=== PATIENT | male | born 1945 | race Caucasian/White ===

== ENCOUNTER 2023-09-11 12:34 | Outpatient (RCR) | payer MEDICARE, SELFPAY | END 2024-02-03 10:38 | disposition home or self-care (01) | LOC: HO.WCC 12:34 | PROVIDERS: PCP Internal Medicine; Visit Provider Surgery | DX: I87.331 Chronic venous hypertension (idiopathic) with ulcer and inflammation of right lower extremity (principal); L97.812 Non-pressure chronic ulcer of other part of right lower leg with fat layer exposed; L97.829 Non-pressure chronic ulcer of other part of left lower leg with unspecified severity; L30.9 Dermatitis, unspecified; I73.9 Peripheral vascular disease, unspecified; I10 Essential (primary) hypertension; Z95.2 Presence of prosthetic heart valve; Z87.891 Personal history of nicotine dependence | CPT/HCPCS: 11042; 11045; 99212; 99213 ==

== ENCOUNTER 2024-04-21 11:11 | Outpatient (AMB) | payer MEDICARE, SELFPAY ==
--- NOTE | 2024-04-21 11:16 | AM.OFFWIN_ITS ---
Intake Vital Signs 04/21/24 11:17 Height 5 ft 10 in Weight 250 lb BMI 35.9 BP 112/76 Blood Pressure Location Rt brachial Position Sitting Pulse 60 Pulse Source Pulse Oximeter Temp 97.4 F Temp Source Oral Pulse Oximetry (%) 94 Oxygen Delivery Method Room Air Intake Visit Reasons: EP sore throat, congestion Intake Note: pt s here for sore throat and congestion Patient Tobacco Use Status: Current someday Tobacco user Allergies No Known Allergies Allergy (Verified 04/21/24 11:17) Do you need a note to return to daycare/school/sports/work: No HPI HPI Comments History of Present Illness Details Patient is a 79-year-old male complaining of it least 8 days of a productive cough with yellow and clear sputum as well as some chest congestion. He denies any sinus pain, ear pain, fevers, shortness of breath, wheezing or chest pain. He is eating and drinking normally. He has not tried taking any [id number] cough and cold medications to make himself feel better. He tells me he is just taking his Tylenol PM the most nights before bed. He did not test for COVID. He denies any sick contacts. Denies a history of asthma or COPD. He tells me last year this happened and he took a Z-Norman and he felt better within a few days. he tells me he is around his grandkids a lot. [facility] Social History Patient Tobacco Use Status: Current someday Tobacco user Review of Systems Const All systems reviewed & are unremarkable except as noted in HPI and below Physical Exam Vital Signs: Last Vital Signs Temp 97.4 F 04/21/24 11:17 Pulse 50 04/21/24 11:17 BP 112/76 04/21/24 11:17 Pulse Ox 94 04/21/24 11:17 Oxygen Delivery Method Room Air 04/21/24 11:17 BMI result Body Mass Index 35.9 Const General: cooperative, healthy appearing, comfortable and no acute distress Orientation/consciousness: patient oriented x3 Limitations: no limitations HEENT Head: Yes normal to inspection Ears: hearing grossly normal bilaterally, external ears normal and TM's normal bilaterally General nose exam: Normal external nose present, Normal nares present and No nasal discharge present Face and sinus: Yes normal facial exam and Yes sinuses nontender Mouth: Normal oral and palatal mucosa present and moist mucous membranes Throat: Yes tonsils normal, Yes uvula midline and Yes posterior oropharynx abnormal (Erythema) Eyes General: appearance normal, both eyes and all related structures Neck Neck: Yes normal visual inspection Resp Effort & Inspection: normal respiratory effort, able to speak in complete sentences, Actively coughing, no respiratory distress, not tachypneic, no tripod positioning and no use of accessory muscles Auscultation: clear to auscultation bilaterally Cardio Rate: regular rate Rhythm: regular rhythm Heart sounds: normal S1 and S2 Skin General skin exam: no rashes or lesions noted Neuro General: patient oriented x3 Extrem General: Yes normal to inspection and Yes no clubbing, cyanosis or edema Assessment & Plan Assessment & Plan (1) Atypical pneumonia: Code(s): J18.9 - Pneumonia, unspecified organism Plan: Sent zpak to pharmacy as 8+ days of cough and pt is around younger people frequently. Plan see above Orders: Orders SARS-CoV2/FLU/RSV Today J06.9 - Acute upper respiratory infection, unspecified Medications: New azithromycin For 250 mg dose pack: take 500 mg today (day 1), then 250 mg for 4 days (days 2-5) PO 6 tabs 0RF Coding Level of Care Code New Pt Level 3 (01829) Diagnoses Atypical pneumonia J18.9
[2024-04-21 11:17] VITALS: BP 112/76; PULSE 60; TEMP 36.3; O2SAT 94; BMI 35.9
== END 2024-04-21 11:43 | disposition home or self-care (01) ==
PROVIDERS: PCP Internal Medicine; Visit Provider Physician Assistant
DX: J18.9 Pneumonia, unspecified organism (principal)

== ENCOUNTER 2024-04-21 11:11 | Outpatient (REF) | payer MEDICARE, SELFPAY ==
[2024-04-21 16:38] LABS: Influenza A PCR NEGATIVE (Negative); Influenza B PCR NEGATIVE (Negative); Resp Syncy Virus RNA Qual PCR NEGATIVE (Negative); SARS COV2 PCR INHOUSE NEGATIVE (Negative)
== END 2024-04-21 11:12 | disposition home or self-care (01) ==
LOC: HO.LAB 11:11
PROVIDERS: Physician Assistant; PCP Internal Medicine
DX: J06.9 Acute upper respiratory infection, unspecified (principal); J18.9 Pneumonia, unspecified organism
CPT/HCPCS: 0241U; 99202

== ENCOUNTER 2024-05-27 11:56 | Outpatient (REF) | payer MEDICARE, SELFPAY ==
[2024-05-27 13:53] LABS: Blood Urea Nitrogen 27 mg/dL (9-16); Estimated Glomerular Filt Rate > 60
== END 2024-05-27 11:57 | disposition home or self-care (01) ==
LOC: HO.HMGCLDS 11:56
PROVIDERS: PCP Internal Medicine; Visit Provider Otolaryngology
DX: J38.00 Paralysis of vocal cords and larynx, unspecified (principal)
CPT/HCPCS: 36415; 82565; 84520

== ENCOUNTER → 2024-06-23 14:21 | Outpatient (BNV) | payer MEDICARE, SELFPAY | PROVIDERS: PCP Internal Medicine; Visit Provider Radiology Diagnostic Radiology | DX: R49.0 Dysphonia (principal) | CPT/HCPCS: 71046 ==

== ENCOUNTER 2024-08-22 11:22 | Outpatient (AMB) | payer MEDICARE, SELFPAY ==
--- NOTE | 2024-08-22 11:33 | MHC.OFFWIV ---
Intake Vital Signs 08/22/24 11:35 Height 25 ft Weight 250 lb BMI 2.0 Pulse 72 Pulse Source Pulse Oximeter Pulse Oximetry (%) 97 Oxygen Delivery Method Room Air Intake Visit Reasons: EP-lt neck, shoulder & upper back pain Intake Note: Patient here for left side of neck and upper back pain that has been present for about 1 week. Patient Tobacco Use Status: Current someday Tobacco user Allergies No Known Allergies Allergy (Verified 08/22/24 11:36) Do you need a note to return to daycare/school/sports/work: No HPI HPI Comments History of Present Illness Details 79 y/o male patient who presents to the walk in clinic with c/o Left Neck Pain, left shoulder and Upper Back pain for 1 week. Reports Tenderness an dpain that starts on left neck, radiating to the front left chest wall and posterior upper back. Limited ROM due to Pain. Denies any recent trauma or Injury to the shoulder or Neck. [facility] Medical History (Updated 08/22/24 @ 12:09 by Vonda Rios NP) Muscle strain of left shoulder Social History Patient Tobacco Use Status: Current someday Tobacco user Physical Exam Vital Signs: Last Vital Signs Pulse 72 08/22/24 11:35 Pulse Ox 97 08/22/24 11:35 Oxygen Delivery Method Room Air 08/22/24 11:35 BMI result Body Mass Index 2.0 Const General: cooperative and no acute distress; No comfortable Nutritional Appearance: obese Orientation/consciousness: patient oriented x3 Limitations: ambulation with cane Back/Spine/Pelvis Cervical Spine: cervical muscular tenderness, pain with cervical ROM and Cervical spine tenderness Neuro General: patient oriented x3 Extrem Right upper extremity: normal to inspection and full ROM Left upper extremity: shoulder/upper arm Details: inspection abnormal, tenderness Location: of the clavicle and of the scapula and abnormal ROM Details: pain with active ROM and pain with passive ROM; no swelling and no crepitus Psych Speech and movement: Normal speech and movement present Assessment & Plan Assessment & Plan (1) Muscle strain of left shoulder: Code(s): S46.912A - Strain of unspecified muscle, fascia and tendon at shoulder and upper arm level, left arm, initial encounter Qualifiers: Encounter type: initial encounter Qualified Code(s): S46.912A - Strain of unspecified muscle, fascia and tendon at shoulder and upper arm level, left arm, initial encounter Plan: Ordered Muscle relaxants Ordered Shoulder Xray Ordered Lidocaine patches and Acetaminophen for pain relief. Orders: Orders XR shoulder LT min 2V Today S46.912A - Strain of unspecified muscle, fascia and tendon at shoulder and upper arm level, left arm, initial encounter Medications: New metaxalone 800 mg PO TID 20 tabs 0RF S46.912A - Strain of unspecified muscle, fascia and tendon at shoulder and upper arm level, left arm, initial encounter acetaminophen 1,000 mg (2 x 500 mg) PO Q6H PRN 20 caps 0RF pain S46.912A - Strain of unspecified muscle, fascia and tendon at shoulder and upper arm level, left arm, initial encounter lidocaine 5% leave on most painful area for up to 12 hrs 1 patch topical DAILY 30 ea 0RF S46.912A - Strain of unspecified muscle, fascia and tendon at shoulder and upper arm level, left arm, initial encounter Coding Level of Care Code Est Pt Level 4 (21668) Diagnoses Muscle strain of left shoulder, initial encounter S46.912A Encounter type: initial encounter Time Spent (min) 20
[2024-08-22 11:35] VITALS: PULSE 72; O2SAT 97
--- OUTSIDE RECORDS SUMMARY | 2024-08-22 13:31 | XMS_ITS | Clinical Summary ---
Author Organization [facility] [address] [facility] Address [address] [place] [address] Phone Care Team Providers Care Senior Java Programmer Name Role Phone Willy Benton MD Primary Care Provider [phone] Allergies Active Allergy Reactions Criticality Noted Date Comments Adhesive 10/02/2015 Band aids cause contact dermatitis Latex Other Low 01/08/2018 Latex band aid cause rash Medications furosemide (LASIX) 20 mg tablet Take 2 tablets (40 mg total) by mouth 1 (one) time each day. 08/07/19 24 Active silver sulfADIAZINE (SILVADENE, SSD) 1 % cream Apply to affected area sparingly daily-bid. 01/14/20 23 Active diphenhydrAMINE- acetaminophen (TYLENOL PM) 25-500 mg per tablet Take 1 Tab by mouth at bedtime. Active digoxin (LANOXIN) 125 mcg (0.125 mg) tablet TAKE ONE TABLET BY MOUTH EVERY OTHER DAY 45 tablet 1 05/26/20 24 Active hydrOXYzine HCL (ATARAX) 25 mg tablet Take 1 tablet (25 mg total) by mouth at bedtime as needed for itching. TAKE ONE-HALF TO ONE TABLET BY MOUTH AT BEDTIME NEEDED FOR INSOMNIA 90 tablet 05/30/20 24 Active pravastatin (PRAVACHOL) 20 mg tablet TAKE ONE TABLET BY MOUTH AT BEDTIME 90 tablet 07/27/19 25 Active metoprolol tartrate (LOPRESSOR) 25 mg tablet TAKE ONE TABLET BY MOUTH TWO TIMES A DAY 180 tablet 1 08/23/19 25 Active warfarin (Jantoven) 5 mg tablet Take 0.5-1 tablets (2.5-5 mg total) by mouth 1 (one) time each day. 90 tablet 1 08/23/19 25 Active allopurinoL (ZYLOPRIM) 100 mg tablet TAKE ONE TABLET BY MOUTH TWICE A DAY 180 tablet 1 08/23/19 25 Active metoprolol tartrate (LOPRESSOR) 25 mg tablet Take 1 tablet (25 mg total) by mouth 2 (two) times a day. 03/17/20 23 025 Discontinued allopurinoL (ZYLOPRIM) 100 mg tablet Take 1 tablet (100 mg total) by mouth 2 (two) times a day. 08/25/19 24 025 Discontinued pravastatin (PRAVACHOL) 20 mg tablet 10 mg every night at bedtime. 08/09/19 21 025 Discontinued Jantoven 5 mg tablet TAKE 1/2 TO 1 TABLET BY MOUTH DAILY DIRECTED BY COUMADIN CLINIC 90 tablet 05/02/20 24 025 Discontinued Active Problems Problem Noted Date Diagnosed Date residential (current) use of anticoagulants 2023 H/O mechanical aortic valve replacement 04/27/20 24 Fasciitis 09/02/2020 Overview (03/08/2024): And chronic cellulitis around his left knee arthroplasty. Chronic periosteal reaction/osteomyelitis as well as in the distal distal femur Prediabetes 07/14/2020 Hypertension 01/14/2018 Venous insufficiency of both lower extremities 0 01/14/2018 Venous stasis dermatitis of both lower extremiti es 03/10/2017 Severe obesity (BMI 35.0-39.9) with comorbidity 07/16/2016 BPH (benign prostatic hyperplasia) 12/16/2011 Atrial flutter 02/10/2008 Overview (03/08/2024): transient History of heart valve replacement 02/10/2008 Overview (03/08/2024): [facility], 31 mm, 2003. Pure hypercholesterolemia 11/16/2007 Diverticulitis of colon without hemorrhage 11/27 Tubular adenoma 11/27/2005 Overview (03/08/2024): CN 2002: diminutive tubular adenomas. CN 2006: 8 mm rectal polyp: tubular adenoma. CN 03/24/2011: 10 mm polyp right colon: Tubular adenoma. CN 01/11/2016: no polyps. Next CN in 5 years. Systolic congestive heart failure 05/26/2005 Overview (03/08/2024): LVEF 45%, 12/[address] Green, had an abnormal pharmacologic stress test with nuclear imaging January 2020 Last Assessment & Plan: Checking Your Weight Please check your weight every day. Please make sure to check your weight at the same time every day. Your Weight Goal Your weight should not change more than 2-3 pounds in a day or 5 pounds in a week Use the Results ?? Write your weight down on a log sheet or record book. Bring them to your appointments Your Results and your Goals Your Result / Date of Completion Your Goal / How Often to Assess BP Readings from Last 1 Encounters: 03/22/15 122/63 Less than 130/80--- once per year Component Value Date LDL 69 12/28/2013 LDL less than 100--- once per year Wt Readings from Last 1 Encounters: 03/22/15 262 lb (118.842 kg) Dry Weight: 262lb---- daily Heart Ultrasound (Echocardiogram) Every 2 years (discuss with your physician) Health Maintenance Due Topic Date Due ? Dtap/tdap/td (##1 - Tdap) 1958 ? Hepatitis C Screening 1965 ? Pneumovax For High Risk Patients (##1) 2012 ? Abdominal Aortic Aneurysm (Aaa) Screening 2012 ? Influenza (##1 of 1) 02/06/2015 ? Chf Care Plan 02/17/2015 Your Action Plan Symptoms Action No shortness of breath, weight gain, chest pain, worsening leg swelling or change in your usual symptoms Continue to weigh yourself daily, take your medicines, eat a low salt diet and go to your doctor appointments Any of These Findings or Symptoms Action Weight gain of 2-3 pounds in a day Weight gain of 5 pounds in a week Increased leg swelling or cough Increased number of pillows to sleep Shortness of breath with activity Call your doctor for instructions Any of These Findings or Symptoms Action Weight gain of more than 5 lbs in 1 week Dizziness or falling Waking at night due to shortness of breath Shortness of breath at rest Chest tightness or wheezing Call your doctor today to report your symptoms and request an appointment Your congestive heart failure is well controlled and no changes are required to your current plan. Check your weight daily. Write down results. Continue to work on weight loss with a goal of losing 2-4 pounds per month Contact me if you experience any barriers to care such as inability to purchase your medication, difficulty getting to your appointments or difficulty understanding your care plan Please get your yearly flu shot Educational Resources [employer] (www.heart.org) This care plan was created in collaboration with Andres Luna on 03/22/2015 Encounters Date Type Department Care Team Description 08/01/2024 11:10 AM EST Anticoagulation - Warfarin Visit Coumadin [address] [phone] Atrial flutter, unspecified type (CMS/HCC) (Primary Dx); terminal carman (current) use of anticoagulants; H/O mechanical aortic valve replacement 07/25/2024 [facility] [address] [address] Leticia Hay LPN pt needs to reschedule appt with Dr Benton 06/23/2024 1:40 PM EST Anticoagulation - Warfarin Visit [address] [phone] Atrial flutter, unspecified type (CMS/HCC) (Primary Dx); terminal carman (current) use of anticoagulants; H/O mechanical aortic valve replacement 05/25/2024 11:10 AM EST Anticoagulation - Warfarin Visit [address] [phone] Atrial flutter, unspecified type (CMS/HCC) (Primary Dx); terminal carman (current) use of anticoagulants; H/O mechanical aortic valve replacement from Last 3 Months Immunizations Name Administration Dates Next Due H1N1 Inj Preservative Free 05/13/2009 Influenza trivalent, 0.5mL ( Fluzone High-dose) 65yo and older 04/11/2020,04/15/2019,03/10/2017 Influenza trivalent, with pr eservative (Fluzone; Afluria) 6mo and older 03/22/2015,03/12/2014,02/25/2013,03/30,03/18/2011,04/10/2010,03/13/2009 ,03/29/2008,03/15/2007,03/18/2005 Pneumococcal conjugate 13 va lent (Prevnar 13, PCV13) 2mo and older 01/29/2016 Pneumococcal polysaccharide 23 valent (Pneumovax 23) 2yo and older 04/27/2003 Td Tetanus diptheria (Tdvax) 7yo and older 04/27/2003,04/20/2001 Tdap Tetanus diptheria acell ular pertussis (Boostrix; Adacel) 7yo and older 01/29/2016 Zoster Live 12/16/2011 Surgical History Surgery Date Site/Laterality Comments OTHER SURGICAL HISTORY PROCEDURE: HISTORICAL MITRAL VALVE REPL; COMMENT: [facility] 2002. ROTATOR CUFF REPAIR -2008 PROCEDURE: HISTORICAL ROTATOR CUFF REPAIR; COMMENT: left - Dr. Jo COLONOSCOPY 2001 PROCEDURE: HISTORICAL COLONOSCOPY; COMMENT: diminutive tubular adenoma COLONOSCOPY 2005 PROCEDURE: HISTORICAL COLONOSCOPY; COMMENT: 8 mm rectal polyp: tubular adenoma COLONOSCOPY 03/24/2011 PROCEDURE: HISTORICAL COLONOSCOPY; COMMENT: 10 mm polyp right colon: Tubular adenoma. 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 Colonoscopy 6.22.06. 8 mm rectal polyp: tubular adenoma. CN 03/24/2011: 10 mm polyp right colon: Tubular adenoma. CN 01/11/2016: no polyps. Next CN in 5 years. Systolic congestive heart fa ilure (CMS/[facility]) 05/26/2005 DX:Systolic congestive heart failure ([facility]); COMMENT: LVEF 45%, 2004. Hypertension 01/14/2018 DX:Hypertension History of gout 05/26/2005 DX:History of go ut; COMMENT: 2 attacks in foot; no aspirate done Diverticulitis of colon with out hemorrhage 11/27/2005 DX:Diverticulitis of colon w ithout hemorrhage History of heart valve replacement 02/10/2008 DX:History of heart valve replacement; COMMENT: [facility], 31 mm, 2003. Obesity 07/16/2016 DX:Obesity Venous stasis dermatitis of both lower extremities 03/10/2017 DX:Venous stasis dermatitis of both lower extremities Venous stasis ulcer of left lower extremity ([facility]) 03/10/2017 DX:Venous stasis ulcer of le ft lower extremity ([facility]) Tobacco abuse 01/11/2019 DX:Tobacco abuse Dysphagia DX:Dysphagia Throat pain in adult DX:Throat p ain in adult H/O aortic valve replacement DX: H/O aortic valve replacement CHF (congestive heart failur e) ([facility]) DX:CHF (congestive heart luis manuel lure) ([facility]) Post-nasal drip DX:Post-nasal dr ip Family History Medical History Relation Name Comments Other: Mitral valve Replacement Brother 1 Arthritis Mother Relation Name Status Comments Brother 1 Brother 2 Mother Social History Tobacco Use Types Packs/Day Years Used Date Smoking Tobacco: Former Cigarettes Smokeless Tobacco: Never Alcohol Use Standard Drinks/Week Comments Yes 35 (1 standard drink = 0.6 oz pu re alcohol) Sex and Gender Information Value Date Recorded Sex Assigned at Not on file Legal Sex Male 2:20 PM EST Gender Identity Not on file Sexual Orientation Not on file Obstetrics History Last Filed Vital Signs Vital Sign Reading Time Taken Comments Blood Pressure 138/64 01/20/2024 2:51 PM EDT Pulse 64 01/20/2024 2:51 PM EDT Temperature - - Respiratory Rate - - Oxygen Saturation - - Inhaled Oxygen Concentration - - Weight 115 kg (253 lb) 05/11/2024 1:14 PM EST Height 177.8 cm (5' 10 ) 05/11/2024 1:14 PM EST Body Mass Index 36.3 05/11/2024 1:14 PM EST Plan of Treatment Upcoming Encounters Date Type Department Care Team (Late st Contact Info) Description 08/29/2024 11:00 AM EDT Anticoagulation - Warfarin Visit Coumadin Clinic - [address] [phone] 09/01/2024 1:00 PM EDT Office Visit [facility] [address] [facility] [address] [place] [address] Onel Green MD [address] [facility] [address] [place] [address] 09/06/2024 1:30 PM EDT Office Visit [facility] - [address] [phone] Delia Junior PA [address] [place] [address] Health Maintenance Due Date Last Done Comments Zoster Vaccines (2 of 3) 02/10/2012 12/16/2011 Pneumococcal Vaccine: 50+ Years (3 of 3 - PCV20 or PCV21) 01/28/2021 01/29/2016, 04/27/2003 RSV Immunization Patients 60+ Years Old (1 - 1-dose 75+ series) 2022 Medicare Annual Wellness Visit 05/07/2022 Social Influencers of Health Screening 05/07/2022 COVID-19 Vaccine (3 - season) 2024 01/24/2021, 01/03/2021 Influenza Vaccine (#1) 2024 , 04/15/2019, 04/08/2018, Additional history exists Depression Screening 07/13/2024 07/13/2023 Falls Risk Assessment 07/13/2024 07/13/2023 Hypertension/CHF/CAD Annual BMP Blood Test 09/02/2024 09/03/2023, 02/25/2021, 11/30/2020, Additional history exists Colorectal Cancer Screening: Colonoscopy 01/10/2026 01/11/2016 DTaP,Tdap,and Td Vaccines (4 - Td or Tdap) 01/28/2026 01/29/2016, 04/27/2003, 04/20/2001 Cholesterol Screening (Lipid Panel) 12/17/2027 12/16/2022 Hepatitis C Screening Completed 12/26/2015 HIB Vaccines Aged Out No longer eligi ble based on patient's age to complete this topic HPV Vaccines Aged Out No longer eligi ble based on patient's age to complete this topic Hepatitis A Vaccines Aged Out No long er eligible based on patient's age to complete this topic Hepatitis B Vaccines Aged Out No long er eligible based on patient's age to complete this topic IPV Vaccines Aged Out No longer eligi ble based on patient's age to complete this topic MMR Vaccines Aged Out No longer eligi ble based on patient's age to complete this topic Meningococcal ACWY Vaccine Aged Out N o longer eligible based on patient's age to complete this topic Meningococcal B Vacine Aged Out No lo nger eligible based on patient's age to complete this topic RSV Immunization Patients Under 20 months Aged Out No longer eligible based on patient's age to complete this topic Varicella Vaccines Aged Out No longer eligible based on patient's age to complete this topic Medical Devices Implanted Type Area School Childcare Attendant Device Identifier Shelf Expiration Date Model / Serial / Lot Cement Simplex P Radiopaque Full Dose Bone 10 Pack - [id number] Implanted:Qty: 1 on 09/11/2020 by Lazaro Nichols MD Left: Knee [employer] 6191-06-08 0 / / Cement Simplex P Radiopaque Full Dose Bone 10 Pack - [id number] Implanted:Qty: 1 on 09/11/2020 by Lazaro Nichols MD Left: Knee [employer] 6191-- 0 / / Cement Simplex P Radiopaque Full Dose Bone 10 Pack - [id number] Implanted:Qty: 1 on 09/11/2020 by Lazaro Nichols MD Left: Knee [employer] 6191-06-08 0 / / Cement Simplex P Radiopaque Full Dose Bone 10 Pack - [id number] Implanted:Qty: 1 on 09/11/2020 by Lazaro Nichols MD Left: Knee [employer] 6191-06-08 0 / / Cement Simplex P Radiopaque Full Dose Bone 10 Pack - [id number] Implanted:Qty: 1 on 09/11/2020 by Lazaro Nichols MD Left: Knee [employer] 6191-1-01 0 / / Augment Triathlon E Cone Symmetric Revision Tritanium Tibial - [id number] Implanted:Qty: 1 on 11/27/2020 by Lazaro Nichols MD Left: Knee [employer] [id number] 09/10/2022 5549-A-15 0 / / [id number] Stem Oss Ethel 150mm 12mm Cemented Femoral Knee Intramedullary - [id number] Implanted:Qty: 1 on 11/27/2020 by Lazaro Nichols MD Left: Knee BIOMET++DNU+CHO OSE DIVISION [id number] 10/12/2030 944058 / / [id number] Plug Artisan Small 9-12mm Plug Bone Cement - [id number] Implanted:Qty: 1 on 11/27/2020 by Lazaro Nichols MD Left: Knee [employer] [id number] 10/27/2023 6215-500 1 / / [id number] Plug Artisan Small 9-12mm Plug Bone Cement - [id number] Implanted:Qty: 1 on 11/27/2020 by Lazaro Nichols MD Left: Knee [employer] [id number] 05/12/2025 6215-5-00 1 / / [id number] Yoke Oss Reinforced - [id number] Implanted:Qty: 1 on 11/27/2020 by Lazaro Nichols MD Left: Knee BIOMET++DNU+CHO OSE DIVISION [id number] 10/22/2030 835993 / / [id number] Axle Oss Femoral Knee - [id number] Implanted:Qty: 1 on 11/27/2020 by Lazaro Nichols MD Left: Knee BIOMET++DNU+CHO OSE DIVISION [id number] 08/10/2030 596057 / / [id number] Pin Lock Oss Poly - [id number] Implanted:Qty: 1 on 11/27/2020 by Lazaro Nichols MD Left: Knee BIOMET++DNU+CHO OSE DIVISION [id number] 05/28/2025 312076 / / [id number] Bushing Tibial Oss Poly - [id number] Implanted:Qty: 1 on 11/27/2020 by Lazaro Nichols MD Left: Knee BIOMET++DNU+CHO OSE DIVISION [id number] 07/17/2025 730345 / / [id number] Bushing Oss Reduced Poly Femoral Hip - [id number] Implanted:Qty: 1 on 11/27/2020 by Lazaro Nichols MD Left: Knee BIOMET++DNU+CHO OSE DIVISION [id number] 10/09/2025 811290 / / [id number] Bearing Oss 12mm Resurfacing Lateral Stabilized Tibial - [id number] Implanted:Qty: 1 on 11/27/2020 by Lazaro Nichols MD Left: Knee BIOMET++DNU+CHO OSE [employer]ISION [id number] 12/03/2023 340871 / / [id number] Component Oss 7cm Modular Segmental Reduce Femoral Knee - [id number] Implanted:Qty: 1 on 11/27/2020 by Lazaro Nichols MD Left: Knee BIOMET++DNU+CHO OSE DIVISION 08/01/2029 660152 / / [id number] Component Oss Long 71mm Nonmodular Tibial Plate Knee - [id number] Implanted:Qty: 1 on 11/27/2020 by Lazaro Nichols MD Left: Knee BIOMET++DNU+CHO OSE DIVISION 02/17/2030 557162 / / [id number] Block Oss [id number] Augmentation Knee Tibia Right Medial - [id number] Implanted:Qty: 1 on 11/27/2020 by Lazaro Nichols MD Left: Knee BIOMET++DNU+CHO OSE DIVISION 05/14/2027 506697 / / [id number] Block Oss [id number] Augmentation Knee Tibia Left Medial - [id number] Implanted:Qty: 1 on 11/27/2020 by Lazaro Nichols MD Left: Knee BIOMET++DNU+CHO OSE DIVISION 12/26/2026 827206 / / [id number] Component Oss 13cm Segment Femoral Knee Diaphysis - [id number] Implanted:Qty: 1 on 11/27/2020 by Lazaro Nichols MD Left: Knee BIOMET++DNU+CHO OSE DIVISION 04/13/2028 659872 / / [id number] Cement Simplex P Radiopaque Full Dose Bone 10 Pack - [id number] Implanted:Qty: 1 on 11/27/2020 by Lazaro Nichols MD Left: Knee [employer] [id number] 03/07/2022 6190-06-08 0 / / [id number] Cement Simplex P Radiopaque Full Dose Bone 10 Pack - [id number] Implanted:Qty: 1 on 11/27/2020 by Lazaro Nichols MD Left: Knee [employer] [id number] 03/07/2022 6190-06-08 0 / / [id number] Cement Simplex P Radiopaque Full Dose Bone 10 Pack - [id number] Implanted:Qty: 1 on 11/27/2020 by Lazaro Nichols MD Left: Knee [employer] [id number] 03/07/20226190-06- 0 / / [id number] Cement Simplex P Radiopaque Full Dose Bone 10 Pack - [id number] Implanted:Qty: 1 on 11/27/2020 by Lazaro Nichols MD Left: Knee [employer] [id number] 03/07/2022 6190-06-08 0 / / [id number] Procedures Procedure Name Priority Date/Time Associated Diagnosis Comments POC PROTIME INR BLOOD Routine 08/01/2024 Atrial flutter, unspecified type (CMS/HCC) residential (current) use of anticoagulants H/O mechanical aortic valve replacement POC PROTIME INR BLOOD Routine 06/23/2024 Atrial flutter, unspecified type (CMS/HCC) residential (current) use of anticoagulants H/O mechanical aortic valve replacement EXTERNAL XRAY REPORT 06/23/2024 EXTERNAL CLINICAL LAB 05/27/2024 EXTERNAL CLINICAL LAB 05/27/2024 POC PROTIME INR BLOOD Routine 05/25/2024 Atrial flutter, unspecified type (CMS/HCC) residential (current) use of anticoagulants H/O mechanical aortic valve replacement ANNUAL BMP BLOOD TEST Routine 09/03/2023 DEPRESSION SCREENING Routine 07/13/2023 FALLS RISK ASSESSMENT Routine 07/13/2023 LIPID PANEL Routine 12/16/2022 COLONOSCOPY Routine 01/11/2016 HEPATITIS C SCREENING Routine 12/26/2015 from Last 3 Months or Most Recently Relevant to Health Maintenance Results * POC Protime INR Blood (08/01/2024) Only the most recent of3 resultswithin the time period is included. Pathologist [facility] Lot Number INR POC 3.0 Prothrombin Time POC Exp Date Blood 08/01/2024 Willy Benton MD POINT OF CARE TEST ENTER/EDIT O RDERABLES Final Result * External Xray Report (06/23/2024) Anatomical Region Laterality Modality Radiographic Ana Cristina ging Provider [facility] IMG XR PROCEDURES Final Result * External clinical lab (05/27/2024) Only the most recent of2 resultswithin the time period is included. Provider [facility] LAB BLOOD ORDERABLES Final Re sult * Annual BMP Blood Test (09/03/2023) Pathologist [facility] Annual BMP Blood Test Abstracted Historical Juan [facility] HEALTH MAINTENANCE Final Result * Falls Risk Assessment (07/13/2023) Pathologist [facility] Falls Risk Assessment Abstracted [facility] Provider HEALTH MAINTENANCE Final Result * Depression Screening (07/13/2023) Pathologist [facility] Depression Screening Abstracted [facility] Provider HEALTH MAINTENANCE Final Result * Lipid panel (12/16/2022) [facility] LDL/HDL Ratio 2 0 - 4 Triglycerides 84 0 - 150 mg/dL Cholesterol 135 0 - 200 mg/dL HDL 59 >=40 mg/dL LDL Cholesterol 60 0 - 100 mg/dL Blood Venous blood specimen / Unknown Result [facility] Provider LAB BLOOD ORDERABLES Tara l Result * Colonoscopy (01/11/2016) [facility] Colonoscopy Abstracted, No Interpretation Anatomical Region Laterality Modality Other [facility] Provider HEALTH MAINTENANCE Final Result * Hepatitis C Screening (12/26/2015) [facility] Hepatitis C Screening Abstracted [facility] Provider HEALTH MAINTENANCE Final Result from Last 3 Months or Most Recently Relevant to Health Maintenance Insurance [employer] Advance Directives Documents on File Type Date Recorded Patient Range Manager Expl anation Health Care Decision (hx) 08/23/2013 AD COLLADO DIRECTIVE Health Care Decision (hx) 08/23/2013 AD COLLADO DIRECTIVE Health Care Decision (hx) 08/23/2013 AD COLLADO DIRECTIVE Health Care Decision (hx) 08/23/2013 AD COLLADO DIRECTIVE Health Care Decision (hx) 08/23/2013 AD COLLADO DIRECTIVE Health Care Decision (hx) 08/23/2013 AD COLLADO DIRECTIVE Health Care Decision (hx) 08/23/2013 AD COLLADO DIRECTIVE Health Care Decision (hx) 08/23/2013 AD COLLADO DIRECTIVE Health Care Decision (hx) 08/23/2013 AD COLLADO DIRECTIVE Health Care Decision (hx) 08/23/2013 AD COLLADO DIRECTIVE Health Care Decision (hx) 08/23/2013 AD COLLADO DIRECTIVE Care Teams Senior Java Programmer Relationship Specialty Start Date End Date Willy Benton MD [address] [place] [id number] PCP - General Internal Medicine 02/04/21
--- OUTSIDE RECORDS SUMMARY | 2024-08-22 13:31 | XMS_ITS | Encounter Summary ---
Author Organization [facility] Address [address] [place] [address] Care Team Providers Care Momd Teacher Name Role Phone Willy Benton MD Primary Care Provider [phone] Encounter Details Date Type Department Care Team (Latest Contact Info) Description 06/23/2024 1:40 PM EST Antico[facility] - [facility] [address] [phone] Atrial flutter, unspecified type (CMS/HCC) (Primary Dx); care home (current) use of anticoagulants; H/O mechanical aortic valve replacement Social History Tobacco Use Types Packs/Day Years Used Date Smoking Tobacco: Former Cigarettes Smokeless Tobacco: Never Alcohol Use Standard Drinks/Week Comments Yes 35 (1 standard drink = 0.6 oz pu re alcohol) Sex and Gender Information Value Date Recorded Sex Assigned at Not on file Legal Sex Male 2:20 PM EST Gender Identity Not on file Sexual Orientation Not on file documented as of this encounter Plan of Treatment Upcoming Encounters Date Type Department Care Team (Late st Contact Info) Description 08/29/2024 11:00 AM EDT Anticoagulation - [facility]farin Visit [facility] [address] [phone] 09/01/2024 1:00 PM EDT Office Visit [facility] - [facility] [address] [facility] [address] [place] [address] Onel Green MD [address] [facility] [address] [place] [address] 09/06/2024 1:30 PM EDT Office Visit Adult Medicine [facility] [address] [place] [phone] Delia Junior PA [address] [place] [address] documented as of this encounter Procedures Procedure Name Priority Date/Time Associated Diagnosis Comments POC PROTIME INR BLOOD Routine 06/23/2024 Atrial flutter, unspecified type (CMS/HCC) care home (current) use of anticoagulants H/O mechanical aortic valve replacement documented in this encounter Results * POC Protime INR Blood (06/23/2024) Lot Number INR POC 2.5 Prothrombin Time POC Exp Date Blood 06/23/2024 us Cesilia Bartlett MD POINT OF CARE TEST ENTER/ED IT ORDERABLES Edited Result - Final documented in this encounter Visit Diagnoses Diagnosis Atrial flutter, unspecified type (CMS/HCC)- Primary continuous churn buttermaker (current) use of anticoagulants Long-term (current) use of anticoagulants H/O mechanical aortic valve replacement documented in this encounter Care Teams Momd Teacher Relationship Specialty Start Date End Date Willy Benton MD [address] [place] [address] PCP - General Internal Medicine 02/04/21 documented as of this encounter
--- OUTSIDE RECORDS SUMMARY | 2024-08-22 13:32 | XMS_ITS | Clinical Summary ---
Author Organization [facility] Address [address] [place] [address] Care Team Providers Care Cinder Block Maker Name Role Phone Deedee Faith MD Primary Care Provider [phone] Allergies Active Allergy Reactions Criticality Noted Date Comments Povidone Iodine Rash Low 09/15/2020 Erythematous rash without pustules/papules. Latex Other (See Comments) Low 01/08/2018 Latex band aid cause rash Medications Medication Sig Dispensed Refills Start Date End Date Status allopurinol (ZYLOPRIM) 100 MG tablet Take 100 mg by mouth 2 (two) times a day. 0 Active pravastatin (PRAVACHOL) tablet 20 mg 10 mg every night at bedtime. 0 08/08/2020 Active digoxin (LANOXIN) 125 MCG tablet Take 125 mcg by mouth every other day. In the evening 0 Active warfarin (COUMADIN) 5 MG tablet Take 4 mg by mouth daily. 0 Active Multiple Vitamins-Minerals (CENTRUM ADULTS) TABS Take by mouth. 0 Active docusate sodium (COLACE) 100 MG capsule Take 100 mg by mouth 2 (two) times a day. 0 Active acetaminophen (TYLENOL) 325 MG tablet Take 650 mg by mouth every 6 (six) hours as needed for pain. 0 Active bisacodyl (DULCOLAX) [address] 10 mg rectally daily. 0 Active magnesium hydroxide (MILK OF MAGNESIA) 400 MG/5ML suspension Take by mouth daily as needed for constipation. 0 Active diazePAM (VALIUM) tablet 5 mg Take 5 mg by mouth every 8 (eight) hours as needed for anxiety. 0 Active senna-docusate (PERICOLACE) 8.6-50 MG Take 1 tablet by mouth 2 (two) times a day. 40 tablet 0 11/30/2020 Active metoprolol tartrate (LOPRESSOR) 25 MG tablet Take 0.5 tablets (12.5 mg total) by mouth 2 (two) times a day. 30 tablet 0 12/03/2020 Active oxyCODONE (ROXICODONE) 5 MG immediate release tablet Take 1 tablet (5 mg total) by mouth every 4 (four) hours as needed for pain. 84 tablet 0 12/13/2020 Active Additional Information Patient not taking.Reason: Other (NO longer needed), Reported on 02/25/2021 doxycycline (ADOXA) 100 MG tablet Take 1 tablet (100 mg total) by mouth 2 (two) times a day. 60 tablet 0 02/25/2021 Active nystatin (MYCOSTATIN) powder Apply topically 2 (two) times a day. 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 Lymphedema of left leg 08/09/2020 Popliteal cyst, left 08/09/2020 Chronic pain of left knee 01/08/2018 Cellulitis of left lower extremity 01/08/2018 Immunizations Name Administration Dates Next Due Covid-19 (Pfizer) Dilution Required 01/24/2021,0 01/03/2021 Family History Medical History Relation Name Comments Arthritis Mother Relation Name Status Comments Mother Social History Tobacco Use Types Packs/Day Years Used Date Smoking Tobacco: Some Days Cigars Smokeless Tobacco: Never Alcohol Use Standard Drinks/Week Comments Yes 14 (1 standard drink = 0.6 oz pure alcohol) not currently-in rehab facility Sex and Gender Information Value Date Recorded Sex Assigned at Male 08/22/2020 2:47 PM EDT Gender Identity Male 11/07/2020 11:11 AM EDT Sexual Orientation Not on file Job Start Date Occupation Industry Not on file Not on file Not on file Last Filed Vital Signs Vital Sign Reading Time Taken Comments Blood Pressure 155/88 03/11/2021 11:13 AM EDT Pulse 76 03/11/2021 11:13 AM EDT Temperature 36.6 ??C (97.9 ??F) 03/11/2021 11:13 AM E DT Respiratory Rate 16 12/03/2020 7:00 AM EDT Oxygen Saturation 98% 03/11/2021 11:13 AM EDT Inhaled Oxygen Concentration - - Weight 96.6 kg (213 lb) 02/25/2021 9:06 AM EDT Height 177.8 cm (5' 10 ) 11/27/2020 8:24 AM EDT Body Mass Index 30.56 11/27/2020 8:24 AM EDT Plan of Treatment Health Maintenance Due Date Last Done Comments Hepatitis C Screening 1945 Pneumococcal Vaccine (1 of 2 - PCV) 1953 Depression Screening 1959 BMI Counseling 1965 Preventative Health Evaluation 1965 Tobacco Cessation Counseling 1965 DTap / Tdap / Td (1 - Tdap) 1966 Shingrix-Zoster Vaccine (1 o f 2) 1997 Fall Risk Assessment 2012 RSV Adult > 60+ Yrs or (1 - 1-dose 75+ series) 2022 COVID-19 Vaccine (3 - 2023-2 5 season) 2024 01/24/2021, 01/03/2021 Influenza Vaccine (#1) 2024 Hepatitis B Vaccines Aged Out No long er eligible based on patient's age to complete this topic RSV Ped < 20 months Aged Out No longe r eligible based on patient's age to complete this topic Medical Devices Implanted Type Area Emergency Service Worker Device Identifier Shelf Expiration Date Model / Serial / Lot Cement Simplex P Radiopaque Full Dose Bone 10 Pack - [id number] - [id number] Implanted:Qty: 1 on 09/11/2020 by Lazaro Nichols MD at [facility] Left: Knee [employer] 6191-- 0 / / Cement Simplex P Radiopaque Full Dose Bone 10 Pack - 384359 - [id number] Implanted:Qty: 1 on 09/11/2020 by Lazaro Nichols MD at [facility] Left: Knee [employer] 6191-- 0 / / Cement Simplex P Radiopaque Full Dose Bone 10 Pack - 985292 - [id number] Implanted:Qty: 1 on 09/11/2020 by Lazaro Nichols MD at [facility] Left: Knee [employer] 6191-- 0 / / Cement Simplex P Radiopaque Full Dose Bone 10 Pack - 895528 - [id number] Implanted:Qty: 1 on 09/11/2020 by Lazaro Nichols MD at [facility] Left: Knee [employer] 6191-06-08 0 / / Cement Simplex P Radiopaque Full Dose Bone 10 Pack - 620148 - [id number] Implanted:Qty: 1 on 09/11/2020 by Lazaro Nichols MD at [facility] Left: Knee [employer] 6191 0 / / Augment Triathlon E Cone Symmetric Revision Tritanium Tibial - 067464 - [id number] Implanted:Qty: 1 on 11/27/2020 by Lazaro Nichols MD at [facility] Left: Knee [employer] [id number] 09/10/2022 5549-A-15 0 / / [id number] Stem Oss Keldron 150mm 12mm Cemented Femoral Knee Intramedullary - 463017 - [id number] Implanted:Qty: 1 on 11/27/2020 by Lazaro Nichols MD at [facility] Left: Knee [employer] [id number] 10/12/2030 327418 / / [id number] Plug Artisan Small 9-12mm Plug Bone Cement - 684403 - [id number] Implanted:Qty: 1 on 11/27/2020 by Lazaro Nichols MD at [facility] Left: Knee [employer] [id number] 10/27/2023 1 / / [id number] Plug Artisan Small 9-12mm Plug Bone Cement - 703554 - [id number] Implanted:Qty: 1 on 11/27/2020 by Lazaro Nichols MD at [facility] Left: Knee [employer] [id number] 05/12/2025 1 / / [id number] Yoke Oss Reinforced - 024252 - [id number] Implanted:Qty: 1 on 11/27/2020 by Lazaro Nichols MD at [facility] Left: Knee [employer] [id number] 10/22/2030 660783 / / [id number] Axle Oss Femoral Knee - 139958 - [id number] Implanted:Qty: 1 on 11/27/2020 by Lazaro Nichols MD at [facility] Left: Knee [employer] [id number] 08/10/2030 742758 / / [id number] Pin Lock Oss Poly - 593433 - [id number] Implanted:Qty: 1 on 11/27/2020 by Lazaro Nichols MD at [facility] Left: Knee [employer] [id number] 05/28/2025 070116 / / [id number] Bushing Tibial Oss Poly - 290620 - [id number] Implanted:Qty: 1 on 11/27/2020 by Lazaro Nichols MD at [facility] Left: Knee [employer] [id number] 07/17/2025 933995 / / [id number] Bushing Oss Reduced Poly Femoral Hip - 734231 - [id number] Implanted:Qty: 1 on 11/27/2020 by Lazaro Nichols MD at [facility] Left: Knee [employer] [id number] 10/09/2025 652026 / / [id number] Bearing Oss 12mm Resurfacing Lateral Stabilized Tibial - 406708 - [id number] Implanted:Qty: 1 on 11/27/2020 by Lazaro Nichols MD at [facility] Left: Knee [employer] [id number] 12/03/2023 880853 / / [id number] Component Oss 7cm Modular Segmental Reduce Femoral Knee - 519737 - [id number] Implanted:Qty: 1 on 11/27/2020 by Lazaro Nichols MD at [facility] Left: Knee [employer] 08/01/2029 822219 / / [id number] Component Oss Long 71mm Nonmodular Tibial Plate Knee - 472356 - [id number] Implanted:Qty: 1 on 11/27/2020 by Lazaro Nichols MD at [facility] Left: Knee [employer] 02/17/2030 314159 / / [id number] Block Oss 71\[id number] Augmentation Knee Tibia Right Medial - 566773 - [id number] Implanted:Qty: 1 on 11/27/2020 by Lazaro Nichols MD at [facility] Left: Knee [employer] 05/14/2027 929766 / / [id number] Block Oss 71\64htu58mg Augmentation Knee Tibia Left Medial - 139391 - [id number] Implanted:Qty: 1 on 11/27/2020 by Lazaro Nichols MD at [facility] Left: Knee [employer] 12/26/2026 754242 / / [id number] Component Oss 13cm Segment Femoral Knee Diaphysis - 955842 - [id number] Implanted:Qty: 1 on 11/27/2020 by Lazaro Nichols MD at [facility] Left: Knee [employer] 04/13/2028 768719 / / [id number] Cement Simplex P Radiopaque Full Dose Bone 10 Pack - 615071 - [id number] Implanted:Qty: 1 on 11/27/2020 by Lazaro Nichols MD at [facility] Left: Knee [employer] [id number] 03/07/2022 6190-06-08 0 / / [id number] Cement Simplex P Radiopaque Full Dose Bone 10 Pack - 373360 - [id number] Implanted:Qty: 1 on 11/27/2020 by Lazaro Nichols MD at [facility] Left: Knee [employer] [id number] 03/07/2022 61 0 / / [id number] Cement Simplex P Radiopaque Full Dose Bone 10 Pack - 314835 - [id number] Implanted:Qty: 1 on 11/27/2020 by Lazaro Nichols MD at [facility] Left: Knee [employer] [id number] 03/07/2022 6191 0 / / [id number] Cement Simplex P Radiopaque Full Dose Bone 10 Pack - 143938 - [id number] Implanted:Qty: 1 on 11/27/2020 by Lazaro Nichols MD at [facility] Left: Knee [employer] [id number] 03/07/2022 6190-06-08 0 / / [id number] Advance Directives For more information, please contact: [phone] Documents on File Type Date Recorded Patient Supervisor Pyrotechnic Loading Expl anation Advance Directive and Living Will 11/27/2020 4:56 AM Latest Code Status on File Code Status Date Activated Date Inactivated Comments Full Code 11/27/2020 3:40 PM 12/03/2020 11:26 PM This code status was ascertained in the following way: discussion with patient . Code Status History Code Status Date Activated Date Inactivated Comments Full Code 11/27/2020 5:13 AM 11/27/2020 3:40 PM This code status was ascertained in the following way: discussion with patient . Full Code 09/18/2020 7:14 PM 09/22/2020 11:59 PM This code status was ascertained in the following way: discussion with patient. Full Code 09/11/2020 3:05 PM 09/18/2020 7:14 PM This c ode status was ascertained in the following way: per living will or healthcare instructions . Full Code 09/11/2020 8:07 AM 09/11/2020 3:05 PM This co de status was ascertained in the following way: discussion with patient . Care Teams Cinder Block Maker Relationship Specialty Start Date End Date Deedee Faith MD PCP - General Internal Medicine 01/03/21
--- OUTSIDE RECORDS SUMMARY | 2024-08-22 13:32 | XMS_ITS | Encounter Summary ---
Author Organization [facility] Address [address] [place] [address] Care Team Providers Care Cds Sales Advisor Name Role Phone Willy Benton MD Primary Care Provider [phone] Reason for Visit * Reason Onset Date Comments pt needs to reschedule appt with Dr Benton 025 Encounter Details Date Type Department Care Team (Late st Contact Info) Description 07/25/2024 Telephone Coumad[address] [phone] Leticia Hay LPN pt needs to reschedule appt with Dr Benton Social History Tobacco Use Types Packs/Day Years [...] on file documented as of this encounter Progress Notes * Leticia Hay LPN - 07/25/2024 11:11 AM EST Pt called clinic to cancel appt today with Dr. Benton. He cannot get out of his driveway. He was scheduled with Dr Benton at 1 today. I cancelled this appt, but could someone please call him to reschedule this appt with Dr. Benton? He was on hold for 45 minutes and gave up and call Clinic, Thank you! Lia documented in this encounter Plan of Treatment Upcoming Encounters Date Type Department Care Team (Late st Contact Info) Description 08/29/2024 11:00 AM EDT Anticoagulation - Warfarin Visit Cou[facility]in Clinic - [address] [phone] 09/01/2024 1:00 PM EDT Office Visit [facility] - [facility] [address] [facility] [address] [place] [address] Onel Green MD 300 [facility] [address] [place] [address] 09/06/2024 1:30 PM EDT Office Visit Adult Medicine [address] [phone] Delia Junior PA [address] [place] [address] documented as of this encounter Visit Diagnoses Not on filedocumented in this encounter Care Teams Cds Sales Advisor Relationship Specialty Start Date End Date Willy Benton MD [address] [place] [address] PCP - General Internal Medicine 02/04/21 documented as of this encounter
--- OUTSIDE RECORDS SUMMARY | 2024-08-22 13:32 | XMS_ITS | Encounter Summary ---
Author Organization [facility] Address [address] [place] [address] Care Team Providers Care Animal Health Technician Name Role Phone Willy Benton MD Primary Care Provider [phone] Encounter Details Date Type Department Care Team (Latest Contact Info) Description 08/01/2024 11:10 AM EST Anticoagulation - [facility] [address] [phone] Atrial flutter, unspecified type (CMS/HCC) (Primary Dx); half-way (current) use of anticoagulants; H/O mechanical aortic [...] EDT Anticoagulation - Warfarin Visit [facility] [address] [phone] 09/01/2024 1:00 PM EDT Office Visit [facility] - [facility] [address] [facility] [address] [place] [address] Onel Green MD 300 [facility] [address] [place] [address] 09/06/2024 1:30 PM EDT Office Visit Adult Medicine [facility] [address] [place] [phone] Delia Junior PA [address] [place] [address] documented as of this encounter Procedures Procedure Name Priority Date/Time Associated Diagnosis Comments POC PROTIME INR BLOOD Routine 08/01/2024 Atrial flutter, unspecified type (CMS/HCC) 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 H/O mechanical aortic valve replacement documented in this encounter Results * POC Protime INR Blood (08/01/2024) Lot Number INR POC 3.0 Prothrombin Time POC Exp Date Blood 08/01/2024 us Willy Benton MD POINT OF CARE TEST ENTER/EDIT O RDERABLES Final Result documented in this encounter Visit Diagnoses Diagnosis Atrial flutter, unspecified type (CMS/HCC)- 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
== END 2024-08-22 12:12 | disposition home or self-care (01) ==
PROVIDERS: PCP Internal Medicine; Visit Provider Nurse Practitioner Family
DX: S46.912A Strain of unspecified muscle, fascia and tendon at shoulder and upper arm level, left arm, initial encounter (principal)

== ENCOUNTER 2024-08-22 11:22 | Outpatient (REF) | payer MEDICARE, SELFPAY ==
--- NOTE | ~2024-08-22 | XR_ITS ---
EXAMINATION: XR SHOULDER 2 OR MORE VIEWS LEFT HISTORY: S46.912A - Strain of unspecified muscle, fascia and tendon at shoulder COMPARISON: There are no prior studies available for comparison. FINDINGS: Three views of the left shoulder are submitted. Osseous mineralization is normal. There is no fracture or dislocation. The glenohumeral and acromioclavicular joint spaces are preserved. There are suture anchors in the humeral head. The soft tissues are unremarkable. XR/XR shoulder LT min 2V IMPRESSION: Suture anchors in the humeral head. Otherwise unremarkable examination of the left shoulder. Electronically signed by: Erick France MD 08/22/2024 12:39 PM EDT
--- OUTSIDE RECORDS SUMMARY | 2024-08-22 14:14 | XMS_ITS | Encounter Summary ---
Author Organization [facility] Address [address] [place] [address] Care Team Providers Care Major League Baseball Umpire Name Role Phone Willy Benton MD Primary Care Provider [phone] Encounter Details Date Type Department Care Team (Latest Contact Info) Description 06/23/2024 1:40 PM EST Anticoagulation - [facility]farin [facility] [address] [phone] Atrial flutter, unspecified type (CMS/HCC) (Primary Dx); longterm (current) use of anticoagulants; H/O mechanical aortic [...] EDT Anticoagulation - Warfarin Visit [facility] [address] [phone] 09/01/2024 1:00 PM EDT Office Visit [facility] - [facility] [address] [facility] [address] [place] [address] Onel Green MD [address] [facility] [address] [place] [address] 09/06/2024 1:30 PM EDT Office Visit Adult Medicine [facility] [address] [place] [phone] Delia Junior PA [address] [place] [address] documented as of this encounter Procedures Procedure Name Priority Date/Time Associated Diagnosis Comments POC PROTIME INR BLOOD Routine 06/23/2024 Atrial flutter, unspecified type (CMS/HCC) longterm (current) use of anticoagulants H/O mechanical aortic valve replacement documented in this encounter Results * POC Protime INR Blood (06/23/2024) Lot Number INR POC 2.5 Prothrombin Time POC Exp Date Blood 06/23/2024 us Cesilia Bartlett MD POINT OF CARE TEST ENTER/ED IT ORDERABLES Edited Result - Final documented in this encounter Visit Diagnoses Diagnosis Atrial flutter, unspecified type (CMS/HCC)- 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
--- OUTSIDE RECORDS SUMMARY | 2024-08-22 14:14 | XMS_ITS | Encounter Summary ---
Author Organization [facility] Address [address] [place] [address] Care Team Providers Care Locomotive Operator Helper Name Role Phone Willy Benton MD Primary Care Provider [phone] Encounter Details Date Type Department Care Team (Latest Contact Info) Description 08/01/2024 11:10 AM EST Anticoagulation - [facility] [address] [phone] Atrial flutter, unspecified type (CMS/HCC) (Primary Dx); [facility]PC (current) use of anticoagulants; H/O mechanical aortic [...] EDT Anticoagulation - Warfarin Visit [facility] [address] [phone] 09/01/2024 1:00 PM EDT Office Visit [facility] - [facility] [address] [facility] [address] [place] [address] Onel Green MD [address] [facility] [address] [place] [address] 09/06/2024 1:30 PM EDT Office Visit Adult Medicine [facility] [address] [place] [phone] Delia Junior PA [address] [place] [address] documented as of this encounter Procedures Procedure Name Priority Date/Time Associated Diagnosis Comments POC PROTIME INR BLOOD Routine 08/01/2024 Atrial flutter, unspecified type (CMS/HCC) 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 (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) use of anticoagulants H/O mechanical aortic valve replacement documented in this encounter Results * POC Protime INR Blood (08/01/2024) Lot Number INR POC 3.0 Prothrombin Time POC Exp Date Blood 08/01/2024 us Willy Benton MD POINT OF CARE TEST ENTER/EDIT O RDERABLES Final Result documented in this encounter Visit Diagnoses Diagnosis Atrial flutter, unspecified type (CMS/HCC)- Primary 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 (current) use of anticoagulants Long-term (current) use of anticoagulants H/O mechanical aortic valve replacement documented in this encounter Care Teams Locomotive Operator Helper Relationship Specialty Start Date End Date Willy Benton MD [address] [place] [address] PCP - General Internal Medicine 02/04/21 documented as of this encounter
--- OUTSIDE RECORDS SUMMARY | 2024-08-22 14:14 | XMS_ITS | Clinical Summary ---
Author Organization [facility] Address [address] [place] [address] Care Team Providers Care Building Analyst/Supervisor Name Role Phone Deedee Faith MD Primary Care Provider [phone] Allergies Active Allergy Reactions Criticality Noted Date [...] this topic Medical Devices Implanted Type Area Director Of Materials Management Device Identifier Shelf Expiration Date Model / Serial / Lot Cement Simplex P Radiopaque Full Dose Bone 10 Pack - 072902 - [id number] Implanted:Qty: 1 on 09/11/2020 by Lazaro Nichols MD at [facility] Left: Knee [employer] 6191-- 0 / / Cement Simplex P Radiopaque Full Dose Bone 10 Pack - 274861 - [id number] Implanted:Qty: 1 on 09/11/2020 by Lazaro Nichols MD at [facility] Left: Knee [employer] 6191-- 0 / / Cement Simplex P Radiopaque Full Dose Bone 10 Pack - 871459 - [id number] Implanted:Qty: 1 on 09/11/2020 by Lazaro Nichols MD at [facility] Left: Knee [employer] 6191-- 0 / / Cement Simplex P Radiopaque Full Dose Bone 10 Pack - 058568 - [id number] Implanted:Qty: 1 on 09/11/2020 by Lazaro Nichols MD at [facility] Left: Knee [employer] 6191-06-08 0 / / Cement Simplex P Radiopaque Full Dose Bone 10 Pack - 184672 - [id number] Implanted:Qty: 1 on 09/11/2020 by Lazaro Nichols MD at [facility] Left: Knee [employer] 6191 0 / / Augment Triathlon E Cone Symmetric Revision Tritanium Tibial - 193131 - [id number] Implanted:Qty: 1 on 11/27/2020 by Lazaro Nichols MD at [facility] Left: Knee [employer] [id number] 09/10/2022 5549-A-15 0 / / [id number] Stem Oss Beason 150mm 12mm Cemented Femoral Knee Intramedullary - 520727 - [id number] Implanted:Qty: 1 on 11/27/2020 by Lazaro Nichols MD at [facility] Left: Knee [employer] [id number] 10/12/2030 707530 / / [id number] Plug Artisan Small 9-12mm Plug Bone Cement - 483096 - [id number] Implanted:Qty: 1 on 11/27/2020 by Lazaro Nichols MD at [facility] Left: Knee [employer] [id number] 10/27/2023 1 / / [id number] Plug Artisan Small 9-12mm Plug Bone Cement - 545533 - [id number] Implanted:Qty: 1 on 11/27/2020 by Lazaro Nichols MD at [facility] Left: Knee [employer] [id number] 05/12/2025 1 / / [id number] Yoke Oss Reinforced - 357693 - [id number] Implanted:Qty: 1 on 11/27/2020 by Lazaro Nichols MD at [facility] Left: Knee [employer] [id number] 10/22/2030 963934 / / [id number] Axle Oss Femoral Knee - 910363 - [id number] Implanted:Qty: 1 on 11/27/2020 by Lazrao Nichols MD at [facility] Left: Knee [employer] [id number] 08/10/2030 855553 / / [id number] Pin Lock Oss Poly - 377633 - [id number] Implanted:Qty: 1 on 11/27/2020 by Lazaro Nichols MD at [facility] Left: Knee [employer] [id number] 05/28/2025 557868 / / [id number] Bushing Tibial Oss Poly - 841433 - [id number] Implanted:Qty: 1 on 11/27/2020 by Lazaro Nichols MD at [facility] Left: Knee [employer] [id number] 07/17/2025 328428 / / [id number] Bushing Oss Reduced Poly Femoral Hip - 941642 - [id number] Implanted:Qty: 1 on 11/27/2020 by Lazaro Nichols MD at [facility] Left: Knee [employer] [id number] 10/09/2025 503983 / / [id number] Bearing Oss 12mm Resurfacing Lateral Stabilized Tibial - 437373 - [id number] Implanted:Qty: 1 on 11/27/2020 by Lazaro Nichols MD at [facility] Left: Knee [employer] [id number] 12/03/2023 502629 / / [id number] Component Oss 7cm Modular Segmental Reduce Femoral Knee - 471236 - [id number] Implanted:Qty: 1 on 11/27/2020 by Lazaro Nichols MD at [facility] Left: Knee [employer] 08/01/2029 641552 / / [id number] Component Oss Long 71mm Nonmodular Tibial Plate Knee - 454224 - [id number] Implanted:Qty: 1 on 11/27/2020 by Lazaro Nichols MD at [facility] Left: Knee [employer] 02/17/2030 439002 / / [id number] Block Oss 71\08ohn17hh Augmentation Knee Tibia Right Medial - 091299 - [id number] Implanted:Qty: 1 on 11/27/2020 by Lazaro Nichols MD at [facility] Left: Knee [employer] 05/14/2027 568479 / / [id number] Block Oss 71\56fnh93dk Augmentation Knee Tibia Left Medial - 901640 - [id number] Implanted:Qty: 1 on 11/27/2020 by Lazaro Nichols MD at [facility] Left: Knee [employer] 12/26/2026 639121 / / [id number] Component Oss 13cm Segment Femoral Knee Diaphysis - 767623 - [id number] Implanted:Qty: 1 on 11/27/2020 by Lazaro Nichols MD at [facility] Left: Knee [employer] 04/13/2028 874189 / / [id number] Cement Simplex P Radiopaque Full Dose Bone 10 Pack - 152250 - [id number] Implanted:Qty: 1 on 11/27/2020 by Laazro Nichols MD at [facility] Left: Knee [employer] [id number] 03/07/2022 6190-06-08 0 / / [id number] Cement Simplex P Radiopaque Full Dose Bone 10 Pack - 204181 - [id number] Implanted:Qty: 1 on 11/27/2020 by Lazaro Nichols MD at [facility] Left: Knee [employer] [id number] 03/07/2022 61 0 / / [id number] Cement Simplex P Radiopaque Full Dose Bone 10 Pack - 160412 - [id number] Implanted:Qty: 1 on 11/27/2020 by Lazaro Nichols MD at [facility] Left: Knee [employer] [id number] 03/07/2022 6191 0 / / [id number] Cement Simplex P Radiopaque Full Dose Bone 10 Pack - 117409 - [id number] Implanted:Qty: 1 on 11/27/2020 by Lazaro Nichols MD at [facility] Left: Knee [employer] [id number] 03/07/2022 6190-06-08 0 / / [id number] Advance Directives For more information, please contact: [phone] Documents on File Type Date Recorded Patient Tanbark Peeler Expl 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 Care Teams Building Analyst/Supervisor Relationship Specialty Start Date End Date Deedee Faith MD PCP - General Internal Medicine 01/03/21
--- OUTSIDE RECORDS SUMMARY | 2024-08-22 14:14 | XMS_ITS | Encounter Summary ---
Author Organization [facility] Address [address] [place] [address] Care Team Providers Care Crew Member Name Role Phone Wlily Benton MD Primary Care Provider [phone] Reason for Visit * Reason Onset Date Comments pt needs to reschedule appt with Dr Benton 025 Encounter Details Date Type Department Care Team (Late st Contact Info) Description 07/25/2024 Telephone [address]madin [address] [phone] Leticia Hay LPN pt needs to reschedule [...] Anticoagulation - Warfarin Visit Cou[facility] Clinic - [address] [address] 09/01/2024 1:00 PM EDT Office Visit [facility] [address] [facility] [address] [place] [address] Onel Green MD [address] [facility] [address] [place] [address] 09/06/2024 1:30 PM EDT Office Visit Adult Medicine [address] [phone] Delia Junior PA [address] [place] [phone] documented as of this encounter Visit Diagnoses Not on filedocumented in this encounter Care Teams Crew Member Relationship Specialty Start Date End Date Willy Benton MD [address] [place] [phone] PCP - General Internal Medicine 02/04/21 documented as of this encounter
--- OUTSIDE RECORDS SUMMARY | 2024-08-22 14:14 | XMS_ITS | Clinical Summary ---
Author Organization [facility] [address] [facility] Address [address] [place] [address] Phone Care Team Providers Care Solution Director Name Role Phone Willy Benton MD Primary Care Provider [phone] Allergies Active Allergy Reactions Criticality Noted Date [...] Active Problems Problem Noted Date Diagnosed Date FPC (current) use of anticoagulants 2023 H/O mechanical [...] get your yearly flu shot Educational Resources [employer] ([email or web address].org) This care plan was created in collaboration with Andres Luna on 03/22/2015 Encounters Date Type Department Care Team Description 08/01/2024 11:10 AM EST Anticoagulation - Warfarin Visit Coumadin [address] [address] Atrial flutter, unspecified type (CMS/HCC) (Primary Dx); 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; H/O mechanical aortic valve replacement 07/25/2024 [facility] [address] [address] Leticia Hay LPN pt needs to reschedule appt with Dr Benton 06/23/2024 1:40 PM EST Anticoagulation - Warfarin Visit [address] [phone] Atrial flutter, unspecified type (CMS/HCC) (Primary Dx); 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 Systolic congestive heart fa ilure (CMS/[facility]) 05/26/2005 DX:Systolic congestive heart failure ([facility]); COMMENT: LVEF 45%, 2004. Hypertension 01/14/2018 DX:Hypertension [...] Venous stasis ulcer of left lower extremity ([facility]) 03/10/2017 DX:Venous stasis ulcer of le ft lower extremity ([facility]) Tobacco abuse 01/11/2019 DX:Tobacco abuse Dysphagia DX:Dysphagia Throat pain in adult DX:Throat p ain in adult H/O aortic valve replacement DX: H/O aortic valve replacement CHF (congestive heart failur e) ([facility]) DX:CHF (congestive heart luis manuel lure) ([facility]) Post-nasal drip DX:Post-nasal dr ip Family History [...] Anticoagulation - Warfarin Visit Coumadin Clinic - [address] [address] 09/01/2024 1:00 PM EDT Office Visit [facility] [address] [facility] [address] [place] [address] Onel Green MD [address] [facility] [address] [place] [address] 09/06/2024 1:30 PM EDT Office Visit Adult Medicine [facility] - [address] [phone] Delia Junior PA [address] [place] [address] Health Maintenance Due Date Last Done Comments [...] this topic Medical Devices Implanted Type Area State Fire Marshal Device Identifier Shelf Expiration Date Model / Serial / Lot Cement Simplex P Radiopaque Full Dose Bone 10 Pack - [id number] Implanted:Qty: 1 on 09/11/2020 by Lazaro Nichols MD Left: Knee [employer] 6191-06-08 0 / / Cement Simplex P Radiopaque Full Dose Bone 10 Pack - [id number] Implanted:Qty: 1 on 09/11/2020 by Lazaro Nichols MD Left: Knee [employer] 6191-- 0 / / Cement Simplex P Radiopaque Full Dose Bone 10 Pack - [id number] Implanted:Qty: 1 on 09/11/2020 by Lazaro Nichols MD Left: Knee [employer] 6191-06-08 0 / / Cement Simplex P Radiopaque Full Dose Bone 10 Pack - [id number] Implanted:Qty: 1 on 09/11/2020 by Lazaro Nichols MD Left: Knee [employer] 6191-06-08 0 / / Cement Simplex P Radiopaque Full Dose Bone 10 Pack - [id number] Implanted:Qty: 1 on 09/11/2020 by Lazaro Nichols MD Left: Knee [employer] 6191-1-01 0 / / Augment Triathlon E Cone Symmetric Revision Tritanium Tibial - [id number] Implanted:Qty: 1 on 11/27/2020 by Lazaro Nichols MD Left: Knee [employer] [id number] 09/10/2022 5549-A-15 0 / / [id number] Stem Oss [place] 150mm 12mm Cemented Femoral Knee Intramedullary - [id number] Implanted:Qty: 1 on 11/27/2020 by Lazaro Nichols MD Left: Knee [employer]DNU[employer] [id number] 10/12/2030 804625 / / [id number] Plug Artisan Small 9-12mm Plug Bone Cement - 998523 Implanted:Qty: 1 on 11/27/2020 by Lazaro Nichols MD Left: Knee [employer] [id number] 10/27/2023 6215-500 1 / / [id number] Plug Artisan Small 9-12mm Plug Bone Cement - 165109 Implanted:Qty: 1 on 11/27/2020 by Lazaro Nichols MD Left: Knee [employer] [id number] 05/12/2025 6215-5-00 1 / / [id number] Yoke Oss Reinforced - 278664 Implanted:Qty: 1 on 11/27/2020 by Lazaro Nichols MD Left: Knee [employer]++DNU[employer] [id number] 10/22/2030 183622 / / [id number] Axle Oss Femoral Knee - 948722 Implanted:Qty: 1 on 11/27/2020 by Lazaro Nichols MD Left: Knee [employer]NU[employer] [id number] 08/10/2030 467928 / / [id number] Pin Lock Oss Poly - 125263 Implanted:Qty: 1 on 11/27/2020 by Lazaro Nichols MD Left: Knee [employer]++DNU+CHO [employer] [id number] 05/28/2025 002202 / / [id number] Bushing Tibial Oss Poly - 279298 Implanted:Qty: 1 on 11/27/2020 by Lazaro Nichols MD Left: Knee [employer]++DNU[employer] [id number] 07/17/2025 563131 / / [id number] Bushing Oss Reduced Poly Femoral Hip - 786696 Implanted:Qty: 1 on 11/27/2020 by Lazaro Nichols MD Left: Knee [employer]++DNU+[employer] [id number] 10/09/2025 309877 / / [id number] Bearing Oss 12mm Resurfacing Lateral Stabilized Tibial - 132435 Implanted:Qty: 1 on 11/27/2020 by Lazaro Nichols MD Left: Knee [employer]DNU[employer] [id number] 12/03/2023 992040 / / [id number] Component Oss 7cm Modular Segmental Reduce Femoral Knee - 303533 Implanted:Qty: 1 on 11/27/2020 by Lazaro Nichols MD Left: Knee [employer]DNU+CHO [employer]SE [employer] 08/01/2029 501909 / / [id number] Component Oss Long 71mm Nonmodular Tibial Plate Knee - [id number] Implanted:Qty: 1 on 11/27/2020 by Lazaro Nichols MD Left: Knee [employer]++DNU+CHO OSE [employer]ISION 02/17/2030 293407 / / [id number] Block Oss 71\89fqw92qu Augmentation Knee Tibia Right Medial - 926118 Implanted:Qty: 1 on 11/27/2020 by Lazaro Nichols MD Left: Knee [employer]++DNU+CHO OSE [employer]ISION 05/14/2027 282095 / / [id number] Block Oss 71\[id number] Augmentation Knee Tibia Left Medial - 256369 Implanted:Qty: 1 on 11/27/2020 by Lazaro Nichols MD Left: Knee [employer]++DNU+CHO OSE DIVISION 12/26/2026 358237 / / [id number] Component Oss 13cm Segment Femoral Knee Diaphysis - 559265 Implanted:Qty: 1 on 11/27/2020 by Lazaro Nichols MD Left: Knee [employer]++DNU+CHO OSE DIVISION 04/13/2028 294591 / / [id number] Cement Simplex P Radiopaque Full Dose Bone 10 Pack - [id number] Implanted:Qty: 1 on 11/27/2020 by Lazaro Nichols MD Left: Knee [employer] [id number] 03/07/2022 6190-06-08 0 / / [id number] Cement Simplex P Radiopaque Full Dose Bone 10 Pack - [id number] Implanted:Qty: 1 on 11/27/2020 by Lazaro Nichols MD Left: Knee [employer] [id number] 03/07/2022 6190-06-08 0 / / [id number] Cement Simplex P Radiopaque Full Dose Bone 10 Pack - [id number] Implanted:Qty: 1 on 11/27/2020 by Lazaro Nichols MD Left: Knee [employer] [id number] 03/07/20226190-06- 0 / / [id number] Cement Simplex P Radiopaque Full Dose Bone 10 Pack - [id number] Implanted:Qty: 1 on 11/27/2020 by Lazaro Nichols MD Left: Knee [employer] [id number] 03/07/2022 6190-06-08 0 / / [id number] Procedures Procedure Name Priority Date/Time Associated Diagnosis Comments POC PROTIME INR BLOOD Routine 08/01/2024 Atrial flutter, unspecified type (CMS/HCC) [facility]PC (current) use of anticoagulants H/O mechanical aortic valve replacement POC PROTIME INR BLOOD Routine 06/23/2024 Atrial flutter, unspecified type (CMS/HCC) [facility] (current) use of anticoagulants H/O mechanical aortic valve replacement EXTERNAL XRAY REPORT 06/23/2024 EXTERNAL CLINICAL LAB 05/27/2024 EXTERNAL CLINICAL LAB 05/27/2024 POC PROTIME INR BLOOD Routine 05/25/2024 Atrial flutter, unspecified type (CMS/HCC) FPC (current) use of anticoagulants H/O mechanical aortic [...] the time period is included. Pathologist [facility] Lot Number INR POC 3.0 Prothrombin Time [...] * Annual BMP Blood Test (09/03/2023) Pathologist [facility] Annual BMP Blood Test Abstracted Historical Juan TRIVEDI HEALTH MAINTENANCE Final Result * Falls Risk Assessment (07/13/2023) Pathologist [facility] Falls Risk Assessment Abstracted [facility] Provider HEALTH MAINTENANCE Final Result * Depression Screening (07/13/2023) Pathologist [facility] Depression Screening Abstracted [facility] Provider HEALTH MAINTENANCE Final Result * Lipid panel (12/16/2022) [facility] LDL/HDL Ratio 2 0 - 4 Triglycerides 84 0 - 150 mg/dL Cholesterol 135 0 - 200 mg/dL HDL 59 >=40 mg/dL LDL Cholesterol 60 0 - 100 mg/dL Blood Venous blood specimen / Unknown Result [facility] Provider LAB BLOOD ORDERABLES Tara l Result * Colonoscopy (01/11/2016) [facility] Colonoscopy Abstracted, No Interpretation Anatomical Region Laterality Modality Other [facility] Provider HEALTH MAINTENANCE Final Result * Hepatitis C Screening (12/26/2015) [facility] Hepatitis C Screening Abstracted [facility] Provider HEALTH MAINTENANCE Final Result from Last 3 Months or Most Recently Relevant to Health Maintenance Insurance [employer] [place] [employer] Advance Directives Documents on File Type Date Recorded Patient Director Orange Expl anation Health Care Decision (hx) 08/23/2013 [...] (hx) 08/23/2013 AD COLLADO DIRECTIVE Care Teams Solution Director Relationship Specialty Start Date End Date Willy Benton MD [address] [place] [id number] PCP - General Internal Medicine 02/04/21
== END 2024-08-22 11:23 | disposition home or self-care (01) ==
LOC: HO.HMGCX 11:22
PROVIDERS: PCP Internal Medicine; Visit Provider Nurse Practitioner Family
DX: S46.912A Strain of unspecified muscle, fascia and tendon at shoulder and upper arm level, left arm, initial encounter (principal)
CPT/HCPCS: 73030; 99212

== ENCOUNTER → 2024-08-22 12:04 | Outpatient (BNV) | payer MEDICARE, SELFPAY | PROVIDERS: PCP Internal Medicine; Visit Provider Radiology Diagnostic Radiology | DX: S46.912A Strain of unspecified muscle, fascia and tendon at shoulder and upper arm level, left arm, initial encounter (principal) | CPT/HCPCS: 73030 ==

== ENCOUNTER 2025-05-22 13:00 | Outpatient (AMB) | payer MEDICARE, SELFPAY ==
[2025-05-22 13:46] VITALS: BP 152/70; PULSE 60; TEMP 36.5; O2SAT 95; BMI 34.4
--- NOTE | 2025-05-22 13:46 | AM.OFFWIN_ITS ---
Intake Vital Signs 05/22/25 13:46 Height 5 ft 10 in Weight 240 lb BMI 34.4 BP 152/70 H Blood Pressure Location Lt brachial Position Sitting Pulse 60 Pulse Source Pulse Oximeter Temp 97.7 F Temp Source Oral Pulse Oximetry (%) 95 Oxygen Delivery Method Room Air Intake Visit Reasons: EP Rash on abdomen and arms Intake Note: pt presents with red, raised and itchy rash to arms and abdomen Patient Tobacco Use Status: Current someday Tobacco user Allergies adhesive tape Allergy (Mild, Verified 05/22/25 13:55) Rash Do you need a note to return to daycare/school/sports/work: No HPI HPI Comments History of Present Illness Details History - The patient is a 80-year-old male pres enting with a worsening itchy rash. - The rash started sporadically in the g roin and belt area about two months ago without being very concerning. - However, it has now appeared in his ar mpit, where it is intensely itchy, inflamed, and feels like it is getting worse and swelling, to the point it kept him awake the previous night. - The rash is also present under his matt ast and on his chest, but not on his back. - He has tried applying calamine lotion and lidocaine, which did not provide relief. - He denies any recent changes in foods, soaps, detergents, or clothing, and denies recent bug bites, viral illnesses, or exposure to pets. - His relevant medical history includes having cellulitis in his leg previously. - He also has a history of a knee replac ement, after which he has experienced swelling in his legs. - He was scheduled to see his infectious disease doctor but had to postpone the appointment. Physical Exam General: Cooperative, healthy appearing, comfortable, no acute distress and well developed Orientation: Patient oriented x3 Limitations: No limitations Mouth: normal, moist oral mucosa Neck: Normal visual inspection and Yes full ROM Respiratory: Normal respiratory effort and able to speak in complete sentences. Clear to auscultation bilaterally. No w/r/r noted. Cardiovascular: RRR, no m/r/g noted. Normal S1 and S2 Skin: Erythematous, diffuse, blanchable flat, non-tender, dry rash noted on the abdomen, under breasts, and groin. Erythematous, warm, excoriated skin noted on the forearms bilaterally. Areas of bleeding noted. No discharge noted, no i nduration noted. No lesions noted. Patient was informed and verbally consented to the use of an ambient scribe for clinic note documentation during this visit [facility] Medical History (Updated 08/22/24 @ 12:09 by Vonda Rios NP) Muscle strain of left shoulder Social History Patient Tobacco Use Status: Current someday Tobacco user Review of Systems Const All systems reviewed & are unremarkable except as noted in HPI and below Physical Exam Vital Signs: Last Vital Signs Temp 97.7 F 05/22/25 13:46 Pulse 60 05/22/25 13:46 BP 152/70 H 05/22/25 13:46 Pulse Ox 95 05/22/25 13:46 Oxygen Delivery Method Room Air 05/22/25 13:46 BMI result Body Mass Index 34.4 Assessment & Plan Assessment & Plan (1) Rash: Code(s): R21 - Rash and other nonspecific skin eruption Plan Most likely contact dermatitis vs allergic rxn vs fungal with possible cellulitis on the arms Plan - Prescribed a course of oral prednisone to be taken for 6 days to reduce inflammation from the rash. - Prescribed Pepcid, to be used as a histamine janessa to alleviate the severe pruritus. - Prescribed a topical cream to apply to the affected areas. - Will prescribe an antibiotic to address the concern for developing secondary cellulitis. - The patient was advised to monitor for signs of worsening, such as the rash spreading, fever, or joint pain, and to seek follow-up if these occur. - If the condition does not improve, a referral to a postal inspector will be necessary for further evaluation. - Patient may follow up at this clinic as needed and has been informed that his prescriptions have been sent to his pharmacy. Medications: New famotidine (Pepcid) 20 mg PO BID 30 tabs 0RF methylprednisolone PO PER PKG DIR for 6 days 21 ea 0RF hydrocortisone 2.5% 1 appl topical BID PRN 30 grams 0RF Skin Irritation cephalexin 500 mg PO Q6H 28 caps 0RF 7 days Coding Level of Care Code Est Pt Level 3 (65567) Diagnoses Rash R21
--- OUTSIDE RECORDS SUMMARY | 2025-05-22 18:54 | XMS_ITS | Clinical Summary ---
Author Organization [facility] [address] [place] [address] Address [address] [place] [address] Phone Care Team Providers Care Tinsmith Apprentice Name Role Phone Willy Benton MD Primary Care Provider [phone] Allergies Active Allergy Reactions Criticality Noted Date Comments Adhesive 10/02/2015 Band aids cause contact dermatitis Medications enoxaparin (LOVENOX) 100 mg/mL syringe Inject 1 mL (100 mg total) under the skin every 12 (twelve) hours. 6 each 1 025 Active Additional Information Patient taking differently:100 mg subcutaneousAs needed, Reported on 05/09/2025 pravastatin (PRAVACHOL) 20 mg tablet Take 1 tablet (20 mg total) by mouth at bedtime. at bedtime 90 tablet 1 025 Active digoxin (LANOXIN) 125 mcg (0.125 mg) tablet Take 1 tablet (125 mcg total) by mouth every other day. 90 tablet 1 025 Active metoprolol succinate (TOPROL-XL) 50 mg 24 hr tablet Take 1 tablet (50 mg total) by mouth 1 (one) time each day. Do not crush or chew. 180 each 025 Active furosemide (LASIX) 20 mg tablet Take 2 tablets (40 mg total) by mouth 1 (one) time each day. 180 tablet 1 025 Active Jantoven 5 mg tablet TAKE 1/2 TO 1 TABLET BY MOUTH DAILY 90 tablet 1 025 Active allopurinoL (ZYLOPRIM) 100 mg tablet TAKE ONE TABLET BY MOUTH TWICE A DAY 180 tablet 1 Active cefadroxil (DURICEF) 500 mg capsule TAKE ONE CAPSULE BY MOUTH TWICE A DAY 180 capsule 1 Active hydrOXYzine HCL (ATARAX) 25 mg tablet Take 1 tablet (25 mg total) by mouth at bedtime as needed for itching. TAKE ONE-HALF TO ONE TABLET BY MOUTH AT BEDTIME NEEDED FOR INSOMNIA 90 tablet 024 2024 Discontinued(D iscontinued by another clinician) warfarin (COUMADIN) 2.5 mg tablet Please take 2.5mg tablet AND 1mg tablet together by mouth for total daily dose of 3.5mg. Adjust dose per provider monitoring INR. 30 each 11 025 2024 Discontinued(D iscontinued by another clinician) warfarin (COUMADIN) 1 mg tablet Please take 2.5mg tablet AND 1mg tablet together by mouth for total daily dose of 3.5mg. Adjust dose per provider monitoring INR. 30 each 11 025 2024 Discontinued(D iscontinued by another clinician) allopurinoL (ZYLOPRIM) 100 mg tablet Take 1 tablet (100 mg total) by mouth 2 (two) times a day. 180 tablet 1 025 2024 Discontinued cefadroxil 500 mg capsule TAKE ONE CAPSULE BY MOUTH TWICE A DAY 180 capsule 025 2024 Discontinued Active Problems Problem Noted Date Diagnosed Date Pulmonary hypertension 05/09/2025 Assessment & Plan (05/09/2025 8:02 PM EST): The patient's pulmonary hypertension that is likely multifactorial in etiology including left-sided heart failure, atrial fibrillation, obesity, and possibly BENITO. Continue diuretic at current dose for now as he reports that his breathing and edema are stable. Inflammation of joint 09/02/2024 residential (current) use of anticoagulants 2023 Fasciitis 09/02/2020 Overview (03/08/2024): And chronic cellulitis around his left knee arthroplasty. Chronic periosteal reaction/osteomyelitis as well as in the distal distal femur Prediabetes 07/14/2020 Hypertension 01/14/2018 Assessment & Plan (05/09/2025 7:56 PM EST): Blood pressure somewhat robust in office today, but he traveled into the office during a snowstorm. Pressure much better controlled on chart review, and he did not take his furosemide today out of concern for urinary urgency, which is understandable. For now, continue medical therapy with beta-janessa and diuretic. Venous insufficiency of both lower extremities 0 01/14/2018 Venous stasis dermatitis of both lower extremiti es 03/10/2017 Severe obesity (BMI 35.0-39.9) with comorbidity 07/16/2016 BPH (benign prostatic hyperplasia) 12/16/2011 Atrial flutter 02/10/2008 Overview (05/09/2025): - Anticoagulated with warfarin given his mechanical MVR Assessment & Plan (05/09/2025 7:54 PM EST): The patient's heart rate remains well-controlled on EKG in office today and by symptoms on current metoprolol and digoxin doses. He does not have any symptoms to suggest tachycardic or bradycardic heart rate at this time. He remains anticoagulated with warfarin given his mechanical mitral valve replacement. Goal INR for his valve is 2.5-3.5 which is adequate for his atrial fibrillation. He will notify me of any changes in his current condition, but for now, continue his current treatment plan. History of heart valve replacement 02/10/2008 Overview (05/09/2025): [facility] mechanical MVR, 31 mm, 2003. Assessment & Plan (05/09/2025 8:00 PM EST): The patient's mechanical MVR is normally functioning on recent echocardiograms including his TTE and [facility] from [facility] this spring. Thankfully, he did not have endocarditis according to his JAJA at the time of his septic arthritis. He completed 6 weeks of IV antibiotics on the recommendation of infectious disease. He does require lifelong anticoagulation with warfarin. Goal INR 2.5-3.5. He does need Lovenox bridge should his INR fall below 2.5. He also requires SBE prophylaxis prior to any dental procedures. Pure hypercholesterolemia 11/16/2007 Assessment & Plan (05/09/2025 7:59 PM EST): Patient's LDL is well-controlled on current dose pravastatin. Given his prediabetes, LDL target should be at least <70. He is treated to target. Diverticulitis of colon without hemorrhage 11/27 Tubular adenoma 11/27/2005 Overview (03/08/2024): CN 2001: diminutive tubular adenomas. CN 2005: 8 mm rectal polyp: tubular adenoma. CN 03/24/2011: 10 mm polyp right colon: Tubular adenoma. CN 01/11/2016: no polyps. Next CN in 5 years. Systolic congestive heart failure 05/26/2005 Overview (05/09/2025): - LVEF 45% -Pharmacologic nuclear stress test 01/2020 showing mildly dilated LV cavity at rest and stress with a small in size, mild intensity fixed defect in the mid and basal inferior region which could represent an old IMI versus diaphragmatic attenuation Assessment & Plan (05/09/2025 7:58 PM EST): The patient's LVEF is stable on his TTE at [facility] in 08/2024 at 45 to 50%. He states that his breathlessness is at stable as this is swelling. He is currently overall feeling at his baseline. For now, continue his beta-janessa and diuretic at current dose. Dr. Green recommended consideration of SGLT2 inhibitor given his prediabetes and mildly reduced LVEF. If he has any increased weight or breathlessness, would consider initiation of these medications at that time. Resolved Problems Problem Noted Date Diagnosed Date Resolved Date H/O mechanical aortic valve replacement 04/27/2024 05/09/2025 Encounters Date Type Department Care Team Description 05/15/2025 Telephone Immunology - [place] [address] [place] [address] Stan Glez MD 05/09/2025 10:40 AM EST Office Visit [facility] - [address] [place] [phone] Jo Jaquez NP Atrial flutter, unspecified type (CMS/HCC V24, CMS/HCC V28) (Primary Dx); Primary hypertension; Chronic systolic congestive heart failure (CMS/HCC V24, CMS/HCC V28); Pure hypercholesterolemi a; History of heart valve replacement; Pulmonary hypertension (CMS/HCC V24, CMS/HCC V28); Rash 05/02/2025 11:00 AM EST Clinical Support [address] [phone] Atrial flutter, unspecified type (CMS/HCC V24, CMS/HCC V28) (Primary Dx); residential (current) use of anticoagulants; H/O mechanical aortic valve replacement 04/13/2025 11:00 AM EST Clinical Support [address] [phone] Atrial flutter, unspecified type (CMS/HCC V24, CMS/HCC V28) (Primary Dx); residential (current) use of anticoagulants; H/O mechanical aortic valve replacement 03/30/2025 10:45 AM EDT Clinical Support [address] [phone] Atrial flutter, unspecified type (CMS/HCC V24, CMS/HCC V28) (Primary Dx); 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; H/O mechanical aortic valve replacement 03/30/2025 Results Follow-Up [address] [phone] Willy Benton MD 03/20/2025 11:20 AM EDT Anticoagulation - Warfarin Visit [address] [phone] Atrial flutter, unspecified type (CMS/HCC V24, CMS/HCC V28) (Primary Dx); residential (current) use of anticoagulants; H/O mechanical aortic valve replacement 03/16/2025 11:00 AM EDT Office Visit Adult Medicine [address] [phone] Willy Benton MD Primary hypertension (Primary Dx); Atrial flutter, unspecified type (CMS/HCC V24, CMS/HCC V28); Pure hypercholesterolemi a; Prediabetes; Encounter for long-term (current) use of medications; H/O mechanical aortic valve replacement; Bilateral lower extremity edema 03/06/2025 11:00 AM EDT Anticoagulation - Warfarin Visit Coumadin [address] [phone] Atrial flutter, unspecified type (CMS/HCC V24, CMS/HCC V28) (Primary Dx); 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; H/O mechanical aortic valve replacement 02/27/2025 10:30 AM EDT Anticoagulation - Warfarin Visit Coumadin [address] [phone] Atrial flutter, unspecified type (CMS/HCC V24, CMS/HCC V28) (Primary Dx); 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 Systolic congestive heart fa ilure (CMS/HCC V24, CMS/HCC V28) 05/26/2005 DX:Systolic congestive hear t failure (HCC); COMMENT: LVEF 45%, 2004. Hypertension 01/14/2018 DX:Hypertension History of gout 05/26/2005 DX:History of go ut; COMMENT: 2 attacks in foot; no aspirate done Diverticulitis of colon with out hemorrhage 11/27/2005 DX:Diverticulitis of colon w ithout hemorrhage History of heart valve replacement 02/10/2008 DX:History of heart valve replacement; COMMENT: [facility], 31 mm, 2002. Obesity 07/16/2016 DX:Obesity Venous stasis dermatitis of both lower extremities 03/10/2017 DX:Venous stasis dermatitis of both lower extremities Venous stasis ulcer of left lower extremity ([place] V24, [place] V28) 03/10/2017 DX:Venous stasis ulcer of left lower extremity ([facility]) Tobacco abuse 01/11/2019 DX:Tobacco abuse Dysphagia DX:Dysphagia Throat pain in adult DX:Throat p ain in adult H/O aortic valve replacement DX: H/O aortic valve replacement CHF (congestive heart failur e) ([place] V24, [place] V28) DX:CHF (congestive heart fa ilure) ([facility]) Post-nasal drip DX:Post-nasal dr ip Family History Medical History Relation Name Comments Other: Mitral valve Replacement Brother 1 Arthritis Mother Relation Name Status Comments Brother 1 Alive Brother 2 Mother Social History Tobacco Use Types Packs/Day Years Used Date Smoking Tobacco: Every Day Cigarettes Cigars Smokeless Tobacco: Never Tobacco Cessation:Ready to Q uit: Not Asked; Counseling Given: Not Answered Alcohol Use Standard Drinks/Week Comments Yes 35 (1 standard drink = 0.6 oz pu re alcohol) Food Risk Answer Date Recorded Within the past 12 months we worried whether our food would run out before we got money to buy more. Not asked 09/13/2024 Within the past 12 months th e food we bought just didn't last and we didn't have money to get more. Not asked 09/13/2024 Sex and Gender Information Value Date Recorded Sex Assigned at Male 09/05/2024 10:36 AM EDT Legal Sex Male 2:20 PM EST Gender Identity Male 09/05/2024 10:36 AM EDT Sexual Orientation Not on file Last Filed Vital Signs Vital Sign Reading Time Taken Comments Blood Pressure 152/60 05/09/2025 10:56 AM EST Pulse 68 05/09/2025 10:56 AM EST Temperature 36.6 C (97.8 F) 03/16/2025 11:09 AM EDT Respiratory Rate 16 03/16/2025 11:09 AM EDT Oxygen Saturation 96% 05/09/2025 10:56 AM EST Inhaled Oxygen Concentration - - Weight 109 kg (240 lb) 05/09/2025 10:56 AM EST Height 177.8 cm (5' 10 ) 05/09/2025 10:56 AM EST Body Mass Index 34.44 05/09/2025 10:56 AM EST Plan of Treatment Upcoming Encounters Date Type Department Care Team (Late st Contact Info) Description 05/23/2025 11:15 AM EST Clinical Support Coumadin [address] [phone] 10/03/2025 11:30 AM EDT Office Visit Adult Medicine [address] [phone] Willy Benton MD [address] [place] [phone] Health Maintenance Due Date Last Done Comments Zoster Vaccines (2 of 3) 02/10/2012 12/16/2011 Pneumococcal Vaccine: 50+ Years (3 of 3 - PCV20 or PCV21) 01/28/2021 01/29/2016, 04/27/2003 RSV Immunization Adult Patients (1 - 1-dose 75+ series) 2022 Medicare Annual Wellness Visit 05/07/2022 Depression Screening 06/08/2024 07/13/2023 COVID-19 Vaccine (3 - season) 2025 01/24/2021, 01/03/2021 Social Influencers of Health Screening 09/13/2025 09/13/2024 Falls Risk Assessment 09/14/2025 09/14/2024, 024 Colorectal Cancer Screening: Colonoscopy 01/10/2026 01/11/2016 DTaP,Tdap,and Td Vaccines (4 - Td or Tdap) 01/28/2026 01/29/2016, 04/27/2003, 04/20/2001 Hypertension/CHF/CAD Annual BMP Blood Test 03/16/2026 03/16/2025, 10/17/2024, 10/10/2024, Additional history exists Cholesterol Screening (Lipid Panel) 03/16/2030 03/16/2025, 12/16/2022 Hepatitis C Screening Completed 12/26/2015 Influenza Vaccine Completed 03/16/2025, , 04/15/2019, Additional history exists HIB Vaccines Aged Out No longer eligi [...] age to complete this topic Meningococcal B Vaccine Aged Out No l onger eligible based on patient's age to complete this topic RSV Immunization Patients Under 20 months Aged Out No longer eligible based on patient's age to complete this topic Varicella Vaccines Aged Out No longer eligible based on patient's age to complete this topic Medical Devices Implanted Type Area Lye Peel Operator Device Identifier Shelf Expiration Date Model / Serial / Lot Knee Oss Reinf Yoke - [id number] Implanted:Qty: 1 on 09/07/2024 by Lazaro Nichols MD at [facility] Knee Left: Knee NEAL BIOMET [id number] 05/24/2034 [id number] / / [id number] Knee Tib Pin Lock Oss Poly - [id number] Implanted:Qty: 1 on 09/07/2024 by Lazaro Nichols MD at [facility] Knee Left: Knee NEAL BIOMET [id number] 05/22/2029 746756 / / [id number] Knee Tib Bushing Comp Oss - [id number] Implanted:Qty: 1 on 09/07/2024 by Lazaro Nichols MD at [facility] Knee Left: Knee NEAL BIOMET [id number] 07/18/2029 163903 / / [id number] Set Bushing Fem Oss Rs Poly - [id number] - [id number] Implanted:Qty: 1 on 09/07/2024 by Lazaro Nichols MD at [facility] Knee Left: Knee NEAL BIOMET 07/12/2029 928314 / [id number] / [id number] Knee Axle Oss Rs - Sna - [id number] Implanted:Qty: 1 on 09/07/2024 by Lazaro Nichols MD at [facility] Knee Left: Knee NEAL BIOMET [id number] / NA / [id number] Knee Brng Tib Rs Ls Poly 12mm - Sna - [id number] Implanted:Qty: 1 on 09/07/2024 by Lazaro Nichols MD at [facility] Knee Left: Knee NEAL BIOMET [id number] / NA / [id number] Cement Simplex P Radiopaque Full Dose Bone 10 Pack - [id number] Implanted:Qty: 1 on 09/11/2020 by Lazaro Nichols MD Left: Knee [employer] 6191-1-0 10 / / Cement Simplex P Radiopaque Full Dose Bone 10 Pack - [id number] Implanted:Qty: 1 on 09/11/2020 by Lazaro Nichols MD Left: Knee [employer] 6191-1-0 10 / / Cement Simplex P Radiopaque Full Dose Bone 10 Pack - [id number] Implanted:Qty: 1 on 09/11/2020 by Lazaro Nichols MD Left: Knee [employer] 6191-1-0 10 / / Cement Simplex P Radiopaque Full Dose Bone 10 Pack - [id number] Implanted:Qty: 1 on 09/11/2020 by Lazaro Nichols MD Left: Knee [employer] 6191-1-0 10 / / Cement Simplex P Radiopaque Full Dose Bone 10 Pack - [id number] Implanted:Qty: 1 on 09/11/2020 by Lazaro Nichols MD Left: Knee [employer] 6191-1-0 10 / / Augment Triathlon E Cone Symmetric Revision Tritanium Tibial - [id number] Implanted:Qty: 1 on 11/27/2020 by Lazaro Nichols MD Left: Knee [employer] [id number] 09/10/2022 5549-A-1 50 / / [id number] Stem Oss [place] 150mm 12mm Cemented Femoral Knee Intramedullary - [id number] Implanted:Qty: 1 on 11/27/2020 by Lazaro Nichols MD Left: Knee BIOMET++DNU+CHO OSE DIVISION [id number] 10/12/2030 810991 / / [id number] Plug Artisan Small 9-12mm Plug Bone Cement - [id number] Implanted:Qty: 1 on 11/27/2020 by Lazaro Nichols MD Left: Knee [employer] [id number] 10/27/2023 6215-5-0 01 / / [id number] A Plug Artisan Small 9-12mm Plug Bone Cement - [id number] Implanted:Qty: 1 on 11/27/2020 by Lazaro Nichols MD Left: Knee [employer] [id number] 05/12/2025 6215-5-0 01 / / [id number] F Yoke Oss Reinforced - [id number] Implanted:Qty: 1 on 11/27/2020 by Lazaro Nichols MD Left: Knee BIOMET++DNU+CHO OSE DIVISION [id number] 10/22/2030 010649 / / [id number] Axle Oss Femoral Knee - [id number] Implanted:Qty: 1 on 11/27/2020 by Lazaro Nichols MD Left: Knee BIOMET++DNU+CHO OSE DIVISION [id number] 08/10/2030 890670 / / [id number] Pin Lock Oss Poly - [id number] Implanted:Qty: 1 on 11/27/2020 by Lazaro Nichols MD Left: Knee BIOMET++DNU+CHO OSE DIVISION [id number] 05/28/2025 156012 / / [id number] Bushing Tibial Oss Poly - [id number] Implanted:Qty: 1 on 11/27/2020 by Lazaro Nichols MD Left: Knee BIOMET++DNU+CHO OSE DIVISION [id number] 07/17/2025 663251 / / [id number] Bushing Oss Reduced Poly Femoral Hip - [id number] Implanted:Qty: 1 on 11/27/2020 by Lazaro Nichols MD Left: Knee BIOMET++DNU+CHO OSE DIVISION [id number] 10/09/2025 577748 / / [id number] Bearing Oss 12mm Resurfacing Lateral Stabilized Tibial - [id number] Implanted:Qty: 1 on 11/27/2020 by Lazaro Nichols MD Left: Knee BIOMET++DNU+CHO OSE DIVISION [id number] 12/03/2023 145759 / / [id number] Component Oss 7cm Modular Segmental Reduce Femoral Knee - [id number] Implanted:Qty: 1 on 11/27/2020 by Lazaro Nichols MD Left: Knee BIOMET++DNU+CHO OSE DIVISION 08/01/2029 452816 / / [id number] Component Oss Long 71mm Nonmodular Tibial Plate Knee - [id number] Implanted:Qty: 1 on 11/27/2020 by Lazaro Nichols MD Left: Knee BIOMET++DNU+CHO OSE DIVISION 02/17/2030 597808 / / [id number] Block Oss [id number] Augmentation Knee Tibia Right Medial - [id number] Implanted:Qty: 1 on 11/27/2020 by Lazaro Nichols MD Left: Knee BIOMET++DNU+CHO OSE DIVISION 05/14/2027 485962 / / [id number] Block Oss 71\[id number] Augmentation Knee Tibia Left Medial - [id number] Implanted:Qty: 1 on 11/27/2020 by Lazaro Nichols MD Left: Knee BIOMET++DNU+CHO OSE DIVISION 12/26/2026 088409 / / [id number] Component Oss 13cm Segment Femoral Knee Diaphysis - [id number] Implanted:Qty: 1 on 11/27/2020 by Lazaro Nichols MD Left: Knee BIOMET++DNU+CHO OSE DIVISION 04/13/2028 096350 / / [id number] Cement Simplex P Radiopaque Full Dose Bone 10 Xrpo - [id number] Implanted:Qty: 1 on 11/27/2020 by Lazaro Nichols MD Left: Knee [employer] [id number] 03/07/2022 6191-1-0 10 / / [id number] Cement Simplex P Radiopaque Full Dose Bone 10 Pack - [id number] Implanted:Qty: 1 on 11/27/2020 by Lazaro Nichols MD Left: Knee [employer] [id number] 03/07/2022 6191-1-0 10 / / [id number] Cement Simplex P Radiopaque Full Dose Bone 10 Pack - [id number] Implanted:Qty: 1 on 11/27/2020 by Lazaro Nichols MD Left: Knee [employer] [id number] 03/07/2022 6191-1-0 10 / / [id number] Cement Simplex P Radiopaque Full Dose Bone 10 Pack - [id number] Implanted:Qty: 1 on 11/27/2020 by Lazaro Nichols MD Left: Knee [employer] [id number] 03/07/2022 6191-1-0 10 / / [id number] Explanted Type Area Lye Peel Operator Device Identifier Shelf Expiration Date Model / Serial / Lot Knee Components Removed Explanted:Qty: 1 on 09/07/2024 by Lazaro Nichols MD at [facility] Left: Knee NEAL BIOMET XXXX / XXXX / XXX Description:Polyethylene loc janet peg, modular hinge components and tibial bushing removed prior to new implants placed on 09/07/2024 Procedures Procedure Name Priority Date/Time Associated Diagnosis Comments ECG 12-LEAD Routine 05/09/2025 8:04 PM EST Atrial flutter, unspecified type (CMS/HCC V24, CMS/HCC V28) PROTHROMBIN TIME WITH INR Routine 05/02/2025 POC PROTIME INR BLOOD Routine 04/13/2025 10:42 AM EST Atrial flutter, unspecified type (CMS/HCC V24, CMS/HCC V28) 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 H/O mechanical aortic valve replacement POC PROTIME INR BLOOD Routine 03/30/2025 10:39 AM EDT Atrial flutter, unspecified type (CMS/HCC V24, CMS/HCC V28) 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 H/O mechanical aortic valve replacement POC PROTIME INR BLOOD Routine 03/20/2025 11:17 AM EDT Atrial flutter, unspecified type (CMS/HCC V24, CMS/HCC V28) 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 H/O mechanical aortic valve replacement LIPID PANEL WITH REFLEX TO DIRECT LDL Routine 03/16/2025 11:52 AM EDT Pure hypercholesterolemia COMPREHENSIVE METABOLIC PANEL Routine 03/16/2025 11:52 AM EDT Prediabetes Primary hypertension Encounter for long-term (current) use of medications HEMOGLOBIN A1C Routine 03/16/2025 11:52 AM EDT Prediabetes POC PROTIME INR BLOOD Routine 03/06/2025 11:00 AM EDT Atrial flutter, unspecified type (CMS/HCC V24, CMS/HCC V28) 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 H/O mechanical aortic valve replacement POC PROTIME INR BLOOD Routine 02/27/2025 Atrial flutter, unspecified type (CMS/HCC V24, CMS/HCC V28) residential (current) use of anticoagulants H/O mechanical aortic valve replacement DEPRESSION SCREENING Routine 07/13/2023 FALLS RISK ASSESSMENT Routine 07/13/2023 COLONOSCOPY Routine 01/11/2016 HEPATITIS C SCREENING Routine 12/26/2015 from Last 3 Months or Most Recently Relevant to Health Maintenance Results * ECG 12 lead (05/09/2025 8:04 PM EST) Ventricular Rate ECG 68 BPM GEMUSE Atrial Rate 74 BPM GEMUSE QRS Duration 124 ms GEMUSE Q-T Interval 436 ms GEMUSE QTc 463 ms GEMUSE R [place] 107 degrees GEMUSE T [place] 38 degrees GEMUSE ECG Interpretation Atrial fibrillation , known, anticoagulated Rightward axis Non-specific intra-ventricular conduction delay Abnormal ECG unchanged Confirmed by MD Peter, [facility] ([id number]) on 05/11/2025 10:33:13 AM GEMUSE 05/09/2025 11:0 5 AM EST 05/11/2025 10:33 AM EST Jo Jaquez ESCALATOR MECHANIC ECG ORDERABLES Edited Result - Final GEMUSE * Prothrombin time with INR (05/02/2025) INR 3.3 Prothrombin Time POC Blood Venous blood specimen / Unknown 05/02/2025 Willy Benton MD LAB BLOOD ORDERABLES Final Resu lt * POC Protime INR Blood (04/13/2025 10:42 AM EST) Only the most recent of5 resultswithin the time period is included. Lot Number INR POC 3.2 Prothrombin Time POC Exp Date Blood 04/13/2025 10:4 2 AM EST Willy Benton MD POINT OF CARE TEST ENTER/EDIT O RDERABLES Final Result * Lipid panel with reflex to direct LDL (03/16/2025 11:52 AM EDT) Cholesterol 133 0 - 200 mg/dL LAB CHEMISTRY METHOD 03/16/2025 2:55 PM EDT [facility] Triglycerides 72 0 - 150 mg/dL LAB CHEMISTRY METHOD 03/16/2025 2:55 PM EDT [facility] HDL 66 >=40 mg/dL LAB CHEMISTRY METHOD 03/16/2025 2:55 PM EDT [facility] LDL Calculated 53 0 - 100 mg/dL LAB CHEMISTRY METHOD 03/16/2025 2:55 PM EDT [facility] Comment:Estimated LDL Calcul ated using equation: Total cholesterol - HDL cholesterol - (Triglycerides/5) VLDL Cholesterol Delta 14.4 mg/dL LAB CHEMISTRY METHOD 03/16/2025 2:55 PM EDT [facility] Non HDL Chol. (LDL+VLDL) 67 <145 mg/dL LAB CHEMISTRY METHOD 03/16/2025 2:55 PM EDT [facility] Chol/HDL Ratio 2.0 0.0 - 4.4 LAB CHEMISTRY METHOD 03/16/2025 2:55 PM EDT [facility] Blood Venous blood specimen / Unknown Venipuncture / Unknown 03/16/2025 11:52 AM EDT 03/16/2025 11:52 AM EDT us Willy Benton MD LAB BLOOD ORDERABLES Final Resu lt Performing Organization Address City/[facility]/ZIP Co de Phone Number [facility] [address] [place] [address], [place] [phone] * Hemoglobin A1c (03/16/2025 11:52 AM EDT) Hemoglobin A1C 5.2 <6.5 % LAB CHEMISTRY METHOD 03/16/2025 9:48 PM EDT [facility] Mean Bld Glu Estim. 103 mg/dL LAB CHEMISTRY METHOD 03/16/2025 9:48 PM EDT [facility] Blood Venous blood specimen / Unknown Venipuncture / Unknown 03/16/2025 11:52 AM EDT 03/16/2025 11:52 AM EDT us Willy Benton MD LAB BLOOD ORDERABLES Final Resu lt Performing Organization Address [facility]/ZIP Co de Phone Number [facility] [address] [place] [address], [place] [phone] * (ABNORMAL) Comprehensive metabolic panel (03/16/2025 11:52 AM EDT) Sodium 137 133 - 145 mmol/L LAB CHEMISTRY METHOD 03/16/2025 2:55 PM [facility] Potassium 4.8 3.5 - 5.5 mmol/L LAB CHEMISTRY METHOD 03/16/2025 2:55 PM [facility] Chloride 101 96 - 110 mmol/L LAB CHEMISTRY METHOD 03/16/2025 2:55 PM [facility] CO2 30 21 - 32 mmol/L LAB CHEMISTRY METHOD 03/16/2025 2:55 PM [facility] Anion Gap 6 3 - 11 LAB CHEMISTRY METHOD 03/16/2025 2:55 PM [facility] Glucose 87 70 - 100 mg/dL LAB CHEMISTRY METHOD 03/16/2025 2:55 PM [facility] BUN 21 5 - 25 mg/dL LAB CHEMISTRY METHOD 03/16/2025 2:55 PM [facility] Creatinine 0.96 0.70 - 1.30 mg/dL LAB CHEMISTRY METHOD 03/16/2025 2:55 PM [facility] eGFR 81 >=60 mL/min/1. 73m2 LAB CHEMISTRY METHOD 03/16/2025 2:55 PM [facility] Comment:Calculation based on the Chronic Kidney Disease Epidemiology Collaboration (CKD-EPI) equation refit without adjustment for race. BUN/Creatinine Ratio 21.9 LAB CHEMISTRY METHOD 03/16/2025 2:55 PM [facility] Calcium 9.3 8.5 - 10.5 mg/dL LAB CHEMISTRY METHOD 03/16/2025 2:55 PM [facility] AST (SGOT) 31 10 - 42 unit/L LAB CHEMISTRY METHOD 03/16/2025 2:55 PM [facility] ALT (SGPT) 32 10 - 60 unit/L LAB CHEMISTRY METHOD 03/16/2025 2:55 PM EDT [facility] Alkaline Phosphatase 124(H) 42 - 121 unit/L LAB CHEMISTRY METHOD 03/16/2025 2:55 PM EDT [facility] Total Protein 7.5 6.0 - 8.0 g/dL LAB CHEMISTRY METHOD 03/16/2025 2:55 PM EDT [facility] Albumin 4.2 3.2 - 5.0 g/dL LAB CHEMISTRY METHOD 03/16/2025 2:55 PM EDT [facility] Total Bilirubin 1.8(H) 0.0 - 1.4 mg/dL LAB CHEMISTRY METHOD 03/16/2025 2:55 PM EDT [facility] Blood Venous blood specimen / Unknown Venipuncture / Unknown 03/16/2025 11:52 AM EDT 03/16/2025 11:52 AM EDT Willy Benton MD LAB BLOOD ORDERABLES Final Resu lt [facility] [address] [place] [address], * Falls Risk Assessment (07/13/2023) [facility] Falls Risk Assessment Abstracted [facility] Juan [employer] HEALTH MAINTENANCE Final Result * Depression Screening (07/13/2023) Pathologist [facility] Depression Screening Abstracted [facility] Provider HEALTH MAINTENANCE Final Result * Colonoscopy (01/11/2016) [facility] Colonoscopy Abstracted, No Interpretation Anatomical Region Laterality Modality Other [facility] Provider HEALTH MAINTENANCE Final Result * Hepatitis C Screening (12/26/2015) [facility] Hepatitis C Screening Abstracted [facility] Juan [employer] HEALTH MAINTENANCE Final Result from Last 3 Months or Most Recently Relevant to Health Maintenance Insurance [employer] [place] [employer] Advance Directives Documents on File Type Date Recorded Patient Banker Mason Expl anation Health Care Decision (hx) 08/23/2013 [...] Care Decision (hx) 08/23/2013 AD COLLADO DIRECTIVE * Full Code - Default (Latest Code Status on File) Date Activated Date Inactivated Comments 09/02/2024 8:48 PM 09/14/2024 1:04 PM This is order is used when code status has not been discussed with the patient, or code status is otherwise unknown/unconfirmed To update the patient's code status, place a code status order. Do not modify or discontinue any currently active code status orders. Care Teams Tinsmith Apprentice Relationship Specialty Start Date End Date Willy Benton MD [address] [place] [phone] PCP - General Internal Medicine 02/04/21
--- OUTSIDE RECORDS SUMMARY | 2025-05-22 18:54 | XMS_ITS | Encounter Summary ---
Author Organization [facility] Address [address] [place] [address] Care Team Providers Care Scenario Writer Name Role Phone Willy Benton MD Primary Care Provider [phone] Encounter Details Date Type Department Care Team (Late Contact Info) Description 03/30/2025 Results Follow-Up Adult [address] [phone] Willy Benton MD [address] [place] [address] Social History Tobacco Use Types Packs/Day Years [...] AM EDT Sexual Orientation Not on file documented as of this encounter Plan of Treatment Upcoming Encounters Date Type Department Care Team (Late Contact Info) Description 05/23/2025 11:15 AM EST Clinical Support Coumadin [address] [phone] 10/03/2025 11:30 AM EDT Office Visit Adult Medicine [address] [phone] Willy Benton MD [address] [place] [address] documented as of this encounter Visit Diagnoses Not on filedocumented in this encounter Care Teams Scenario Writer Relationship Specialty Start Date End Date Willy Benton MD [address] [place] [address] PCP - General Internal Medicine 02/04/21 documented as of this encounter
--- OUTSIDE RECORDS SUMMARY | 2025-05-22 18:54 | XMS_ITS | Clinical Summary ---
Author Organization [facility] Prior to 11/05/24 Address [address] [place] [address] Care Team Providers Care Auto Tune Up Mechanic Name Role Phone Deedee Faith MD Primary Care Provider [phone] Allergies Active Allergy Reactions Criticality Noted Date [...] 76 03/11/2021 11:13 AM EDT Temperature 36.6 C (97.9 F) 03/11/2021 11:13 AM EDT Respiratory Rate 16 12/03/2020 7:00 AM EDT [...] 75+ series) 2022 COVID-19 Vaccine (3 - 2024-2 6 season) 2025 01/24/2021, 01/03/2021 Influenza Vaccine (#1) 2025 Hepatitis B Vaccines Aged Out No long er eligible based on patient's age to complete this topic RSV Ped < 20 months Aged Out No longe r eligible based on patient's age to complete this topic Medical Devices Implanted Type Area Battery Mechanic Device Identifier Shelf Expiration Date Model / Serial / Lot Cement Simplex P Radiopaque Full Dose Bone 10 Pack - [id number] - [id number] Implanted:Qty: 1 on 09/11/2020 by Lazaro Nichols MD at [facility] Left: Knee [employer] 6191-1- 0 / / Cement Simplex P Radiopaque Full Dose Bone 10 Pack - 804146 - [id number] Implanted:Qty: 1 on 09/11/2020 by Lazaro Nichols MD at [facility] Left: Knee [employer] 6191-- 0 / / Cement Simplex P Radiopaque Full Dose Bone 10 Pack - 676057 - [id number] Implanted:Qty: 1 on 09/11/2020 by Lazaro Nichols MD at [facility] Left: Knee [employer] 6191-- 0 / / Cement Simplex P Radiopaque Full Dose Bone 10 Pack - 982131 - [id number] Implanted:Qty: 1 on 09/11/2020 by Lazaro Nichols MD at [facility] Left: Knee [employer] 6191-06-08 0 / / Cement Simplex P Radiopaque Full Dose Bone 10 Pack - 838679 - [id number] Implanted:Qty: 1 on 09/11/2020 by Lazaro Nichols MD at [facility] Left: Knee [employer] 6191-06-08 0 / / Augment Triathlon E Cone Symmetric Revision Tritanium Tibial - 772044 - [id number] Implanted:Qty: 1 on 11/27/2020 by Lazaro Nichols MD at [facility] Left: Knee [employer] [id number] 09/10/2022 5549-A-15 0 / / [id number] Stem Oss [place] 150mm 12mm Cemented Femoral Knee Intramedullary - 986051 - [id number] Implanted:Qty: 1 on 11/27/2020 by Lazaro Nichols MD at [facility] Left: Knee [employer] [id number] 10/12/2030 556739 / / [id number] Plug Artisan Small 9-12mm Plug Bone Cement - 708773 - [id number] Implanted:Qty: 1 on 11/27/2020 by Lazaro Nichols MD at [facility] Left: Knee [employer] [id number] 10/27/2023 6221-10-99 1 / / [id number] Plug Artisan Small 9-12mm Plug Bone Cement - 177323 - [id number] Implanted:Qty: 1 on 11/27/2020 by Lazaro Nichols MD at [facility] Left: Knee [employer] [id number] 05/12/2025 1 / / [id number] Yoke Oss Reinforced - 220324 - [id number] Implanted:Qty: 1 on 11/27/2020 by Lazaro Nichols MD at [facility] Left: Knee [employer] [id number] 10/22/2030 010193 / / [id number] Axle Oss Femoral Knee - 815526 - [id number] Implanted:Qty: 1 on 11/27/2020 by Lazaro Nichols MD at [facility] Left: Knee [employer] [id number] 08/10/2030 752859 / / [id number] Pin Lock Oss Poly - 290666 - [id number] Implanted:Qty: 1 on 11/27/2020 by Lazaro Nichols MD at [facility] Left: Knee [employer] [id number] 05/28/2025 054960 / / [id number] Bushing Tibial Oss Poly - 056106 - [id number] Implanted:Qty: 1 on 11/27/2020 by Lazaro Nichols MD at [facility] Left: Knee [employer] [id number] 07/17/2025 962615 / / [id number] Bushing Oss Reduced Poly Femoral Hip - 137074 - [id number] Implanted:Qty: 1 on 11/27/2020 by Lazaro Nichols MD at [facility] Left: Knee [employer] [id number] 10/09/2025 628066 / / [id number] Bearing Oss 12mm Resurfacing Lateral Stabilized Tibial - 828883 - [id number] Implanted:Qty: 1 on 11/27/2020 by Lazaro Nichols MD at [facility] Left: Knee [employer] [id number] 12/03/2023 215343 / / [id number] Component Oss 7cm Modular Segmental Reduce Femoral Knee - 813510 - [id number] Implanted:Qty: 1 on 11/27/2020 by Lazaro Nichols MD at [facility] Left: Knee [employer] 08/01/2029 024859 / / [id number] Component Oss Long 71mm Nonmodular Tibial Plate Knee - 684691 - [id number] Implanted:Qty: 1 on 11/27/2020 by Lazaro Nichols MD at [facility] Left: Knee [employer] 02/17/2030 698281 / / [id number] Block Oss [id number] Augmentation Knee Tibia Right Medial - 649567 - [id number] Implanted:Qty: 1 on 11/27/2020 by Lazaro Nichols MD at [facility] Left: Knee [employer] 05/14/2027 742094 / / [id number] Block Oss 71\[id number] Augmentation Knee Tibia Left Medial - 890204 - [id number] Implanted:Qty: 1 on 11/27/2020 by Lazaro Nichols MD at [facility] Left: Knee [employer] 12/26/2026 054795 / / [id number] Component Oss 13cm Segment Femoral Knee Diaphysis - 643653 - [id number] Implanted:Qty: 1 on 11/27/2020 by Lazaro Nichols MD at [facility] Left: Knee [employer] 04/13/2028 009917 / / [id number] Cement Simplex P Radiopaque Full Dose Bone 10 Pack - 541388 - [id number] Implanted:Qty: 1 on 11/27/2020 by Lazaro Nichols MD at [facility] Left: Knee [employer] [id number] 03/07/2022 6190-06-08 0 / / [id number] Cement Simplex P Radiopaque Full Dose Bone 10 Pack - 259072 - [id number] Implanted:Qty: 1 on 11/27/2020 by Lazaro Nichols MD at [facility] Left: Knee [employer] [id number] 03/07/2022 6190-06-08 0 / / [id number] Cement Simplex P Radiopaque Full Dose Bone 10 Pack - 623976 - [id number] Implanted:Qty: 1 on 11/27/2020 by Lazaro Nichols MD at [facility] Left: Knee [employer] [id number] 03/07/2022 6190-06-08 0 / / [id number] Cement Simplex P Radiopaque Full Dose Bone 10 Pack - 013840 - [id number] Implanted:Qty: 1 on 11/27/2020 by Lazaro Nichols MD at [facility] Left: Knee [employer] [id number] 03/07/2022 6190-06-08 0 / / [id number] Advance Directives For more information, please contact: [phone] Documents on File Type Date Recorded 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 Care Teams Auto Tune Up Mechanic Relationship Specialty Start Date End Date Deedee Faith MD PCP - General Internal Medicine 01/03/21
--- OUTSIDE RECORDS SUMMARY | 2025-05-22 18:55 | XMS_ITS | Encounter Summary ---
Author Organization [facility] Address [address] [place] [address] Care Team Providers Care Clinical Pharmacy Manager Name Role Phone Willy Benton MD Primary Care Provider [phone] Encounter Details Date Type Department Care Team (Late st Contact Info) Description 09/23/2024 Lab Requisition [facility] - Main Lab [address] [facility] [place] [address] Merrick Crooks MD [address] [place] [address] Encounter for other general examination Social History Tobacco Use Types Packs/Day Years [...] 05/23/2025 11:15 AM EST Clinical Support Coumadin [address], [place] [phone] 10/03/2025 11:30 AM EDT Office Visit Adult Medicine [address] [phone] Willy Benton MD [address] [place] [address] documented as of this encounter Procedures Procedure Name Priority Date/Time Associated Diagnosis Comments VANCOMYCIN, TROUGH Routine 09/23/2024 5: 13 AM EDT Encounter for other general examination documented in this encounter Results * Vancomycin, trough (09/23/2024 5:13 AM EDT) Vancomycin Trough 16.7 10.0 - 20.0 mcg/mL LAB CHEMISTRY METHOD 09/23/2024 12:25 PM EDT [facility] Blood Venous blood specimen / Unknown Venipuncture / Unknown 09/23/2024 5:13 AM EDT 09/23/2024 10:56 AM EDT us Merrick Crooks MD LAB BLOOD ORDERABLES Final Resu lt [facility] [address] [place] [address], documented in this encounter Visit Diagnoses Diagnosis Encounter for other general examination documented in this encounter Care Teams Clinical Pharmacy Manager Relationship Specialty Start Date End Date Willy Benton MD [address] [place] [address] PCP - General Internal Medicine 02/04/21 documented as of this encounter
--- OUTSIDE RECORDS SUMMARY | 2025-05-22 18:55 | XMS_ITS | Encounter Summary ---
Author Organization [facility] Address [address] [place] [address] Care Team Providers Care Assistant Project Engineer Name Role Phone Willy Benton MD Primary Care Provider [phone] Encounter Details Date Type Department Care Team (Late st Contact Info) Description 09/22/2024 Lab Requisition [facility] - Main Lab [address] [facility] [place] [address] Merrick Crooks MD [address] [place] [address] Encounter for other general examination Social History [...] 05/23/2025 11:15 AM EST Clinical Support Coumadin [address], [place] [phone] 10/03/2025 11:30 AM EDT Office Visit Adult Medicine [address] [phone] Willy Benton MD [address] [place] [address] documented as of this encounter Procedures Procedure Name Priority Date/Time Associated Diagnosis Comments VANCOMYCIN, TROUGH Routine 09/22/2024 10 :00 AM EDT Encounter for other general examination documented in this encounter Results * (ABNORMAL) Vancomycin, trough (09/22/2024 10:00 AM EDT) Vancomycin Trough 26.7(H) 10.0 - 20.0 mcg/mL LAB CHEMISTRY METHOD 09/22/2024 11:29 AM EDT [facility] Blood Venous blood specimen / Unknown Venipuncture / Unknown 09/22/2024 10:00 AM EDT 09/22/2024 10:29 AM EDT us Merrick Crooks MD LAB BLOOD ORDERABLES Final Resu lt [facility] [address] [place] [address], documented in this encounter Visit Diagnoses Diagnosis Encounter for other general examination documented in this encounter Care Teams Assistant Project Engineer Relationship Specialty Start Date End Date Willy Benton MD [address] [place] [address] PCP - General Internal Medicine 02/04/21 documented as of this encounter
--- OUTSIDE RECORDS SUMMARY | 2025-05-22 18:55 | XMS_ITS | Encounter Summary ---
Author Organization [facility] Address [address] [place] [address] Care Team Providers Care Business Development Agent Name Role Phone Willy Benton MD Primary Care Provider [phone] Encounter Details Date Type Department Care Team (Late st Contact Info) Description 10/17/2024 Lab Requisition [facility] - Main Lab [address] [facility] [place] [address] Deirdre Muller PA [address] [place] [address] Pyogenic arthritis, unspecified (CMS/HCC V24, CMS/HCC V28) Social History Tobacco Use Types Packs/Day Years [...] 05/23/2025 11:15 AM EST Clinical Support Coumadin [address] [phone] 10/03/2025 11:30 AM EDT Office Visit Adult Medicine [address] [phone] Willy Benton MD [address] [place] [address] documented as of this encounter Procedures Procedure Name Priority Date/Time Associated Diagnosis Comments CBC WITH AUTO DIFFERENTIAL Routine 10/17/2024 2:20 PM EDT Pyogenic arthritis, unspecified (CMS/HCC V24, CMS/HCC V28) SEDIMENTATION RATE Routine 10/17/2024 2: 20 PM EDT Pyogenic arthritis, unspecified (CMS/HCC V24, CMS/HCC V28) CBC AND DIFFERENTIAL Routine 10/17/2024 2:20 PM EDT Pyogenic arthritis, unspecified (CMS/HCC V24, CMS/HCC V28) CREATINE KINASE Routine 10/17/2024 2:20 PM EDT Pyogenic arthritis, unspecified (CMS/HCC V24, CMS/HCC V28) COMPREHENSIVE METABOLIC PANEL Routine 10/17/2024 2:20 PM EDT Pyogenic arthritis, unspecified (CMS/HCC V24, CMS/HCC V28) documented in this encounter Results * (ABNORMAL) CBC auto differential (10/17/2024 2:20 PM EDT) WBC 6.2 4.8 - 10.8 K/mcL LAB HEMETOLOGY METHOD 10/17/2024 3:53 PM EDT [facility] RBC 3.40(L) 4.50 - 5.50 M/mcL LAB HEMETOLOGY METHOD 10/17/2024 3:53 PM EDT [facility] Hemoglobin 10.4(L) 13.5 - 17.5 g/dL LAB HEMETOLOGY METHOD 10/17/2024 3:53 PM EDT [facility] Hematocrit 34.2(L) 42.0 - 54.0 % LAB HEMETOLOGY METHOD 10/17/2024 3:53 PM [facility] MCV 101.2(H) 79.0 - 98.0 FL LAB HEMETOLOGY METHOD 10/17/2024 3:53 PM [facility] MCH 30.8 27.0 - 32.0 pcg LAB HEMETOLOGY METHOD 10/17/2024 3:53 PM [facility] MCHC 30.4(L) 32.0 - 37.0 g/dL LAB HEMETOLOGY METHOD 10/17/2024 3:53 PM [facility] RDW 18.0(H) 11.0 - 15.0 % LAB HEMETOLOGY METHOD 10/17/2024 3:53 PM [facility] Platelets 266 130 - 400 K/mcL LAB HEMETOLOGY METHOD 10/17/2024 3:53 PM [facility] MPV 9.8 7.0 - 11.0 FL LAB HEMETOLOGY METHOD 10/17/2024 3:53 PM [facility] NRBC 0.0 <1.0 % LAB HEMETOLOGY METHOD 10/17/2024 3:53 PM [facility] NRBC Absolute 0.00 <0.10 K/mcL LAB HEMETOLOGY METHOD 10/17/2024 3:53 PM [facility] Neutrophils Relative 69.6 % LAB HEMETOLOGY METHOD 10/17/2024 3:53 PM [facility] Lymphocytes Relative 15.3 % LAB HEMETOLOGY METHOD 10/17/2024 3:53 PM [facility] Monocytes Relative 11.0 % LAB HEMETOLOGY METHOD 10/17/2024 3:53 PM EDT [facility] Eosinophils Relative 2.8 % LAB HEMETOLOGY METHOD 10/17/2024 3:53 PM EDT [facility] Basophils Relative 1.0 % LAB HEMETOLOGY METHOD 10/17/2024 3:53 PM EDT [facility] Immature Granulocytes Relative 0.3 % LAB HEMETOLOGY METHOD 10/17/2024 3:53 PM EDT [facility] Neutrophils Absolute 4.29 1.50 - 7.00 K/mcL LAB HEMETOLOGY METHOD 10/17/2024 3:53 PM EDT [facility] Lymphocytes Absolute 0.94(L) 1.00 - 5.00 K/mcL LAB HEMETOLOGY METHOD 10/17/2024 3:53 PM EDT [facility] Monocytes Absolute 0.68 0.20 - 1.00 K/mcL LAB HEMETOLOGY METHOD 10/17/2024 3:53 PM EDT [facility] Eosinophils Absolute 0.17 0.00 - 0.50 K/mcL LAB HEMETOLOGY METHOD 10/17/2024 3:53 PM EDT [facility] Basophils Absolute 0.06 0.00 - 0.20 K/mcL LAB HEMETOLOGY METHOD 10/17/2024 3:53 PM EDT [facility] Immature Granulocytes Absolute 0.02 0.00 - 0.03 K/mcL LAB HEMETOLOGY METHOD 10/17/2024 3:53 PM EDT [facility] Blood Venous blood specimen / Unknown 10/17/2024 2:20 PM EDT 10/17/2024 3:26 PM EDT us Deirdre HENDERSON LAB BLOOD ORDERABLES Final Re sult [facility] [address] [place] [address], [place] [phone] * Creatine kinase (10/17/2024 2:20 PM EDT) Pathologist [facility] Total CK 34 22 - 269 unit/L LAB CHEMISTRY METHOD 10/17/2024 4:56 PM EDT [facility] Blood Venous blood specimen / Unknown 10/17/2024 2:20 PM EDT 10/17/2024 3:26 PM EDT us Deirdre HENDERSON LAB BLOOD ORDERABLES Final Re sult [facility] [address] [place] [address], [place] [phone] * (ABNORMAL) Comprehensive metabolic panel (10/17/2024 2:20 PM EDT) [facility] Sodium 137 133 - 145 mmol/L LAB CHEMISTRY METHOD 10/17/2024 4:56 PM T [facility] Potassium 4.3 3.5 - 5.5 mmol/L LAB CHEMISTRY METHOD 10/17/2024 4:56 PM [facility] Chloride 102 96 - 110 mmol/L LAB CHEMISTRY METHOD 10/17/2024 4:56 PM [facility] CO2 27 21 - 32 mmol/L LAB CHEMISTRY METHOD 10/17/2024 4:56 PM [facility] Anion Gap 8 3 - 11 LAB CHEMISTRY METHOD 10/17/2024 4:56 PM [facility] Glucose 99 70 - 100 mg/dL LAB CHEMISTRY METHOD 10/17/2024 4:56 PM [facility] BUN 26(H) 5 - 25 mg/dL LAB CHEMISTRY METHOD 10/17/2024 4:56 PM [facility] Creatinine 0.85 0.70 - 1.30 mg/dL LAB CHEMISTRY METHOD 10/17[facility]24 [facility] eGFR 89 >=60 mL/min/1. 73m2 LAB CHEMISTRY METHOD 10/17/2024 4:56 PM [facility] Comment:Calculation based on the Chronic Kidney Disease Epidemiology Collaboration (CKD-EPI) equation refit without adjustment for race. BUN/Creatinine Ratio 30.6 LAB CHEMISTRY METHOD 10/17/2024 4:56 PM [facility] Calcium 8.8 8.5 - 10.5 mg/dL LAB CHEMISTRY METHOD 10/17/2024 4:56 PM [facility] AST (SGOT) 25 10 - 42 unit/L LAB CHEMISTRY METHOD 10/17/2024 4:56 PM [facility] ALT (SGPT) 16 10 - 60 unit/L LAB CHEMISTRY METHOD 10/17/2024 4:56 PM [facility] Alkaline Phosphatase 101 42 - 121 unit/L LAB CHEMISTRY METHOD 10/17/2024 4:56 PM [facility] Total Protein 7.4 6.0 - 8.0 g/dL LAB CHEMISTRY METHOD 10/17/2024 4:56 PM [facility] Albumin 3.7 3.2 - 5.0 g/dL LAB CHEMISTRY METHOD 10/17/2024 4:56 PM [facility] Total Bilirubin 1.0 0.0 - 1.4 mg/dL LAB CHEMISTRY METHOD 10/17/2024 4:56 PM [facility] Blood Venous blood specimen / Unknown 10/17/2024 2:20 PM EDT 10/17/2024 3:26 PM EDT us Deirdre HENDERSON LAB BLOOD ORDERABLES Final Re sult [facility] [address] [place] [address], * (ABNORMAL) Sedimentation rate (10/17/2024 2:20 PM EDT) Sed Rate 40(H) 0 - 20 mm/hr LAB HEMETOLOGY METHOD 10/17/2024 3:57 PM EDT [facility] Blood Venous blood specimen / Unknown 10/17/2024 2:20 PM EDT 10/17/2024 3:26 PM EDT us Deirdre HENDERSON LAB BLOOD ORDERABLES Final Re sult [facility] [address] [place] [address], documented in this encounter Visit Diagnoses Diagnosis Pyogenic arthritis, unspecified (CMS/HCC V24, CMS/HCC V28) documented in this encounter Care Teams Business Development Agent Relationship Specialty Start Date End Date Willy Benton MD [address] [place] [phone] PCP - General Internal Medicine 02/04/21 documented as of this encounter
--- OUTSIDE RECORDS SUMMARY | 2025-05-22 18:55 | XMS_ITS | Encounter Summary ---
Author Organization [facility] Address [address] [place] [address] Care Team Providers Care Hotel Clerk Name Role Phone Willy Benton MD Primary Care Provider [phone] Encounter Details Date Type Department Care Team (Late st Contact Info) Description 09/27/2024 Lab Requisition [facility] - Main Lab [address] [facility] [place] [address] Merrick Crooks MD [address] [place] [address] Encounter for other general examination Social History [...] 05/23/2025 11:15 AM EST Clinical Support Coumadin [address], [place] [phone] 10/03/2025 11:30 AM EDT Office Visit Adult Medicine [address] [phone] Willy Benton MD [address] [place] [address] documented as of this encounter Procedures Procedure Name Priority Date/Time Associated Diagnosis Comments PROTHROMBIN TIME WITH INR Routine 09/27/2024 6:00 AM EDT Encounter for other general examination documented in this encounter Results * (ABNORMAL) Prothrombin time with INR (09/27/2024 6:00 AM EDT) Protime 26.6(H) 10.6 - 13.9 sec LAB COAGULATION METHOD 09/27/2024 10:43 AM EDT [facility] INR 2.1 LAB COAGULATION METHOD 09/27/2024 10:43 AM EDT [facility] Blood Venous blood specimen / Unknown Venipuncture / Unknown 09/27/2024 6:00 AM EDT 09/27/2024 9:32 AM EDT us Merrick Crooks MD LAB BLOOD ORDERABLES Final Resu lt [facility] [address] [place] [address], documented in this encounter Visit Diagnoses Diagnosis Encounter for other general examination documented in this encounter Care Teams Hotel Clerk Relationship Specialty Start Date End Date Willy Benton MD [address] [place] [address] PCP - General Internal Medicine 02/04/21 documented as of this encounter
--- OUTSIDE RECORDS SUMMARY | 2025-05-22 18:55 | XMS_ITS | Encounter Summary ---
Author Organization [facility] Address [address] [place] [address] Care Team Providers Care Staff Air Tactical Officer Name Role Phone Willy Benton MD Primary Care Provider [phone] Encounter Details Date Type Department Care Team (Late st Contact Info) Description 09/16/2024 Lab Requisition [facility] - Main Lab 299 [facility] [place] [address] Merrick Crooks MD [address] [place] [phone] Encounter for other general examination Social History [...] 05/23/2025 11:15 AM EST Clinical Support Coumadin [address], [place] [phone] 10/03/2025 11:30 AM EDT Office Visit Adult Medicine [address] [phone] Willy Benton MD [address] [place] [address] documented as of this encounter Procedures Procedure Name Priority Date/Time Associated Diagnosis Comments VANCOMYCIN, TROUGH Routine 09/16/2024 6: 44 AM EDT Encounter for other general examination documented in this encounter Results * (ABNORMAL) Vancomycin, trough (09/16/2024 6:44 AM EDT) Vancomycin Trough 39.6(HH) 10.0 - 20.0 mcg/mL LAB CHEMISTRY METHOD 09/16/2024 11:05 AM EDT [facility] Blood Venous blood specimen / Unknown Venipuncture / Unknown 09/16/2024 6:44 AM EDT 09/16/2024 10:18 AM EDT us Merrick Crooks MD LAB BLOOD ORDERABLES Final Resu lt [facility] [address] [place] [address], documented in this encounter Visit Diagnoses Diagnosis Encounter for other general examination documented in this encounter Care Teams Staff Air Tactical Officer Relationship Specialty Start Date End Date Willy Benton MD [address] [place] [address] PCP - General Internal Medicine 02/04/21 documented as of this encounter
--- OUTSIDE RECORDS SUMMARY | 2025-05-22 18:55 | XMS_ITS | Encounter Summary ---
Author Organization [facility] Address [address] [place] [address] Care Team Providers Care Plywood Factory Worker Name Role Phone Willy Benton MD Primary Care Provider Encounter Details Date Type Department Care Team (Late Contact Info) Description 09/20/2024 Lab Requisition [facility] - Main Lab 299 [facility] [place] [address] Mack Matute MD [address] [place] [address] Encounter for other general examination Social History [...] 05/23/2025 11:15 AM EST Clinical Support Coumadin Clinic - [address] [phone] 10/03/2025 11:30 AM EDT Office Visit Adult Medicine [address] [phone] Willy Benton MD [address] [place], [place] documented as of this encounter Procedures Procedure Name Priority Date/Time Associated Diagnosis Comments SST - GOLD Routine 09/20/2024 7:14 AM EDT Encounter for other general examination MAGNESIUM Routine 09/20/2024 7:14 AM EDT Encounter for other general examination VANCOMYCIN, TROUGH Routine 09/20/2024 7: 14 AM EDT Encounter for other general examination BASIC METABOLIC PANEL Routine 09/20/2024 7:14 AM EDT Encounter for other general examination documented in this encounter Results * SST tube (09/20/2024 7:14 AM EDT) Extra Tube Hold for add-ons. 09/20/2024 12:01 PM EDT [facility] Comment:Auto resulted. Blood Arterial blood specimen / Unknown 09/20/2024 7:14 AM EDT 09/20/2024 10:19 AM EDT us Mack Matute MD LAB BLOOD ORDERABLES Final Res ult [facility] [address] [place] [address], * Vancomycin, trough (09/20/2024 7:14 AM EDT) Vancomycin Trough 17.9 10.0 - 20.0 mcg/mL LAB CHEMISTRY METHOD 09/20/2024 12:07 PM EDT [facility] Blood Arterial blood specimen / Unknown 09/20/2024 7:14 AM EDT 09/20/2024 10:19 AM EDT Mack Matute MD LAB BLOOD ORDERABLES Final Res ult [facility] [address] [place] [address], [place] [phone] * Magnesium (09/20/2024 7:14 AM EDT) Magnesium 2.3 1.9 - 2.6 mg/dL LAB CHEMISTRY METHOD 09/20/2024 11:58 AM EDT [facility] Blood Arterial blood specimen / Unknown 09/20/2024 7:14 AM EDT 09/20/2024 10:19 AM EDT Mack Matute MD LAB BLOOD ORDERABLES Final Res ult Performing Organization Address City/[facility]/ZIP Co de Phone Number [facility] [address] [place] [address], [place] [phone] * (ABNORMAL) Basic metabolic panel (09/20/2024 7:14 AM EDT) Sodium 135 133 - 145 mmol/L LAB CHEMISTRY METHOD 09/20/2024 12:07 PM EDT [facility] Potassium 4.0 3.5 - 5.5 mmol/L LAB CHEMISTRY METHOD 09/20/2024 12:07 PM EDT [facility] Chloride 98 96 - 110 mmol/L LAB CHEMISTRY METHOD 09/20/2024 12:07 PM EDT [facility] CO2 30 21 - 32 mmol/L LAB CHEMISTRY METHOD 09/20/2024 12:07 PM EDT [facility] Anion Gap 7 3 - 11 LAB CHEMISTRY METHOD 09/20/2024 12:07 PM EDT [facility] Glucose 89 70 - 100 mg/dL LAB CHEMISTRY METHOD 09/20/2024 12:07 PM EDT [facility] BUN 14 5 - 25 mg/dL LAB CHEMISTRY METHOD 09/20/2024 12:07 PM EDT [facility] Creatinine 0.73 0.70 - 1.30 mg/dL LAB CHEMISTRY METHOD 09/20/2024 12:07 PM EDT [facility] eGFR 94 >=60 mL/min/1. 73m2 LAB CHEMISTRY METHOD 09/20/2024 12:07 PM EDT [facility] Comment:Calculation based on the Chronic Kidney Disease Epidemiology Collaboration (CKD-EPI) equation refit without adjustment for race. BUN/Creatinine Ratio 19.2 LAB CHEMISTRY METHOD 09/20/2024 12:07 PM EDT [facility] Calcium 8.4(L) 8.5 - 10.5 mg/dL LAB CHEMISTRY METHOD 09/20/2024 12:07 PM EDT [facility] Blood Arterial blood specimen / Unknown 09/20/2024 7:14 AM EDT 09/20/2024 10:19 AM EDT us Mack Matute MD LAB BLOOD ORDERABLES Final Res ult [facility] [address] [place] [address], documented in this encounter Visit Diagnoses Diagnosis Encounter for other general examination documented in this encounter Care Teams Plywood Factory Worker Relationship Specialty Start Date End Date Willy Benton MD [address] [place] [address] PCP - General Internal Medicine 02/04/21 documented as of this encounter
--- OUTSIDE RECORDS SUMMARY | 2025-05-22 18:55 | XMS_ITS | Encounter Summary ---
Author Organization [facility] Address [address] [place] [address] Care Team Providers Care Carpenter Streetcar Name Role Phone Willy Benton MD Primary Care Provider [phone] Encounter Details Date Type Department Care Team (Late st Contact Info) Description 09/28/2024 Lab Requisition [facility] - Main Lab 299 [facility] [place] [address] Merrick Crooks MD [address] [place] [phone] Encounter for other general examination Social History [...] 05/23/2025 11:15 AM EST Clinical Support Coumadin [address], [place] [phone] 10/03/2025 11:30 AM EDT Office Visit Adult Medicine [address] [phone] Willy Benton MD [address] [place] [address] documented as of this encounter Procedures Procedure Name Priority Date/Time Associated Diagnosis Comments PROTHROMBIN TIME WITH INR Routine 09/28/2024 6:01 AM EDT Encounter for other general examination documented in this encounter Results * (ABNORMAL) Prothrombin time with INR (09/28/2024 6:01 AM EDT) Protime 23.3(H) 10.6 - 13.9 sec LAB COAGULATION METHOD 09/28/2024 10:50 AM EDT [facility] INR 1.9 LAB COAGULATION METHOD 09/28/2024 10:50 AM EDT [facility] Blood Venous blood specimen / Unknown Venipuncture / Unknown 09/28/2024 6:01 AM EDT 09/28/2024 9:52 AM EDT us Merrick Crooks MD LAB BLOOD ORDERABLES Final Resu lt [facility] [address] [place] [address], documented in this encounter Visit Diagnoses Diagnosis Encounter for other general examination documented in this encounter Care Teams Carpenter Streetcar Relationship Specialty Start Date End Date Willy Benton MD [address] [place] [address] PCP - General Internal Medicine 02/04/21 documented as of this encounter
--- OUTSIDE RECORDS SUMMARY | 2025-05-22 18:55 | XMS_ITS | Encounter Summary ---
Author Organization [facility] Address [address] [place] [address] Care Team Providers Care Sewing Machine Operator Paper Bags Name Role Phone Willy Benton MD Primary Care Provider [phone] Encounter Details Date Type Department Care Team (Late st Contact Info) Description 09/17/2024 Lab Requisition [facility] - Main Lab 299 [facility] [place] [address] Merrick Crooks MD [address] [place] [address] Encounter for other general examination Social History [...] 05/23/2025 11:15 AM EST Clinical Support Coumadin [address], [place] [phone] 10/03/2025 11:30 AM EDT Office Visit Adult Medicine [address] [phone] Willy Benton MD [address] [place], [place] documented as of this encounter Procedures Procedure Name Priority Date/Time Associated Diagnosis Comments CBC WITH AUTO DIFFERENTIAL Routine 09/17/2024 6:03 AM EDT Encounter for other general examination PROTHROMBIN TIME WITH INR Routine 09/17/2024 6:03 AM EDT Encounter for other general examination CBC AND DIFFERENTIAL Routine 09/17/2024 6:03 AM EDT Encounter for other general examination C-REACTIVE PROTEIN Routine 09/17/2024 6: 03 AM EDT Encounter for other general examination VANCOMYCIN, TROUGH Routine 09/17/2024 6: 03 AM EDT Encounter for other general examination BASIC METABOLIC PANEL Routine 09/17/2024 6:03 AM EDT Encounter for other general examination documented in this encounter Results * (ABNORMAL) CBC auto differential (09/17/2024 6:03 AM EDT) [facility] WBC 6.6 4.8 - 10.8 K/mcL LAB HEMETOLOGY METHOD 09/17/2024 11:52 AM EDT [facility] RBC 2.70(L) 4.50 - 5.50 M/mcL LAB HEMETOLOGY METHOD 09/17/2024 11:52 AM EDT [facility] Hemoglobin 8.3(L) 13.5 - 17.5 g/dL LAB HEMETOLOGY METHOD 09/17/2024 11:52 AM EDT [facility] Hematocrit 27.2(L) 42.0 - 54.0 % LAB HEMETOLOGY METHOD 09/17/2024 11:52 AM [facility] MCV 100.7(H) 79.0 - 98.0 FL LAB HEMETOLOGY METHOD 09/17/2024 11:52 AM [facility] MCH 30.7 27.0 - 32.0 pcg LAB HEMETOLOGY METHOD 09/17/2024 11:52 AM [facility] MCHC 30.5(L) 32.0 - 37.0 g/dL LAB HEMETOLOGY METHOD 09/17/2024 11:52 AM [facility] RDW 16.0(H) 11.0 - 15.0 % LAB HEMETOLOGY METHOD 09/17/2024 11:52 AM [facility] Platelets 356 130 - 400 K/mcL LAB HEMETOLOGY METHOD 09/17/2024 11:52 AM [facility] MPV 9.4 7.0 - 11.0 FL LAB HEMETOLOGY METHOD 09/17/2024 11:52 AM [facility] NRBC 0.0 <1.0 % LAB HEMETOLOGY METHOD 09/17/2024 11:52 AM [facility] NRBC Absolute 0.00 <0.10 K/mcL LAB HEMETOLOGY METHOD 09/17/2024 11:52 AM [facility] Neutrophils Relative 73.6 % LAB HEMETOLOGY METHOD 09/17/2024 11:52 AM [facility] Lymphocytes Relative 13.5 % LAB HEMETOLOGY METHOD 09/17/2024 11:52 AM [facility] Monocytes Relative 8.5 % LAB HEMETOLOGY METHOD 09/17/2024 11:52 AM [facility] Eosinophils Relative 3.5 % LAB HEMETOLOGY METHOD 09/17/2024 11:52 AM EDT [facility] Basophils Relative 0.6 % LAB HEMETOLOGY METHOD 09/17/2024 11:52 AM EDT [facility] Immature Granulocytes Relative 0.3 % LAB HEMETOLOGY METHOD 09/17/2024 11:52 AM EDT [facility] Neutrophils Absolute 4.86 1.50 - 7.00 K/mcL LAB HEMETOLOGY METHOD 09/17/2024 11:52 AM EDT [facility] Lymphocytes Absolute 0.89(L) 1.00 - 5.00 K/mcL LAB HEMETOLOGY METHOD 09/17/2024 11:52 AM EDT [facility] Monocytes Absolute 0.56 0.20 - 1.00 K/mcL LAB [facility]OLOGY [facility] Eosinophils Absolute 0.23 0.00 - 0.50 K/mcL LAB HEMETOLOGY METHOD 09/17/2024 11:52 AM EDT [facility] Basophils Absolute 0.04 0.00 - 0.20 K/mcL LAB HEMETOLOGY METHOD 09/17/2024 11:52 AM EDT [facility] Immature Granulocytes Absolute 0.02 0.00 - 0.03 K/mcL LAB HEMETOLOGY METHOD 09/17/2024 11:52 AM EDT [facility] Blood Venous blood specimen / Unknown Venipuncture / Unknown 09/17/2024 6:03 AM EDT 09/17/2024 10:58 AM EDT us Merrick Crooks MD LAB BLOOD ORDERABLES Final Resu lt [facility] [address] [place] [address], * (ABNORMAL) Vancomycin, trough (09/17/2024 6:03 AM EDT) Vancomycin Trough 27.4(H) 10.0 - 20.0 mcg/mL LAB CHEMISTRY METHOD 09/17/2024 12:32 PM EDT [facility] Blood Venous blood specimen / Unknown Venipuncture / Unknown 09/17/2024 6:03 AM EDT 09/17/2024 10:58 AM EDT us Merrick Crooks MD LAB BLOOD ORDERABLES Final Resu lt Performing Organization Address [facility]/ZIP Co de Phone Number [facility] [address] [place] [address], [place] [phone] * (ABNORMAL) Prothrombin time with INR (09/17/2024 6:03 AM EDT) [facility] Protime 40.1(H) 10.6 - 13.9 sec LAB COAGULATION METHOD 09/17/2024 12:11 PM EDT [facility] INR 3.3 LAB COAGULATION METHOD 09/17/2024 12:11 PM EDT [facility] Blood Venous blood specimen / Unknown Venipuncture / Unknown 09/17/2024 6:03 AM EDT 09/17/2024 10:58 AM EDT us Merrick Crooks MD LAB BLOOD ORDERABLES Final Resu lt Performing Organization Address [facility]/ZIP Co de Phone Number [facility] [address] [place] [address], [place] [phone] * (ABNORMAL) C-reactive protein (09/17/2024 6:03 AM EDT) [facility] C-Reactive Protein 3.33(H) <=0.50 mg/dL LAB CHEMISTRY METHOD 09/17/2024 12:32 PM EDT [facility] Blood Venous blood specimen / Unknown Venipuncture / Unknown 09/17/2024 6:03 AM EDT 09/17/2024 10:58 AM EDT us Merrick Crooks MD LAB BLOOD ORDERABLES Final Resu lt [facility] [address] [place] [address], [place] [phone] * (ABNORMAL) Basic metabolic panel (09/17/2024 6:03 AM EDT) Sodium 133 133 - 145 mmol/L LAB CHEMISTRY METHOD 09/17/2024 12:32 PM [facility] Potassium 3.9 3.5 - 5.5 mmol/L LAB CHEMISTRY METHOD 09/17/2024 12:32 PM [facility] Chloride 96 96 - 110 mmol/L LAB CHEMISTRY METHOD 09/17/2024 12:32 PM [facility] CO2 31 21 - 32 mmol/L LAB CHEMISTRY METHOD 09/17/2024 12:32 PM [facility] Anion Gap 6 3 - 11 LAB CHEMISTRY METHOD 09/17/2024 12:32 PM [facility] Glucose 92 70 - 100 mg/dL LAB CHEMISTRY METHOD 09/17/2024 12:32 PM [facility] BUN 19 5 - 25 mg/dL LAB CHEMISTRY METHOD 09/17/2024 12:32 PM [facility] Creatinine 0.74 0.70 - 1.30 mg/dL LAB CHEMISTRY METHOD 09/17/2024 12:32 PM [facility] eGFR 93 >=60 mL/min/1. 73m2 LAB CHEMISTRY METHOD 09/17/2024 12:32 PM [facility] Comment:Calculation based on the Chronic Kidney Disease Epidemiology Collaboration (CKD-EPI) equation refit without adjustment for race. BUN/Creatinine Ratio 25.7 LAB CHEMISTRY METHOD 09/17/2024 12:32 PM [facility] Calcium 8.4(L) 8.5 - 10.5 mg/dL LAB CHEMISTRY METHOD 09/17/2024 12:32 PM EDT [facility] Blood Venous blood specimen / Unknown Venipuncture / Unknown 09/17/2024 6:03 AM EDT 09/17/2024 10:58 AM EDT us Merrick Crooks MD LAB BLOOD ORDERABLES Final Resu lt [facility] [address] [place] [address], documented in this encounter Visit Diagnoses Diagnosis Encounter for other general examination documented in this encounter Care Teams Sewing Machine Operator Paper Bags Relationship Specialty Start Date End Date Willy Benton MD [address] [place] [phone] PCP - General Internal Medicine 02/04/21 documented as of this encounter
--- OUTSIDE RECORDS SUMMARY | 2025-05-22 18:55 | XMS_ITS | Encounter Summary ---
Author Organization [facility] Address [address] [place] [address] Care Team Providers Care Baggage Agent Name Role Phone Willy Benton MD Primary Care Provider [phone] Encounter Details Date Type Department Care Team (Late st Contact Info) Description 10/03/2024 Lab Requisition [facility] - Main Lab 299 [facility] [place] [address] Stan Glez MD [address] [place] [address] Arthritis due to other bacteria, unspecified joint (CMS/HCC V24, CMS/HCC V28) Social History Tobacco [...] 05/23/2025 11:15 AM EST Clinical Support Coumadin [address] [phone] 10/03/2025 11:30 AM EDT Office Visit Adult Medicine [address] [phone] Willy Benton MD [address] [place] [address] documented as of this encounter Procedures Procedure Name Priority Date/Time Associated Diagnosis Comments CBC WITH AUTO DIFFERENTIAL Routine 10/03/2024 12:00 AM EDT Arthritis due to other bacteria, unspecified joint (CMS/HCC V24, CMS/HCC V28) LAVENDER - EDTA Routine 10/03/2024 12:00 AM EDT Arthritis due to other bacteria, unspecified joint (CMS/HCC V24, CMS/HCC V28) SEDIMENTATION RATE Routine 10/03/2024 12 :00 AM EDT Arthritis due to other bacteria, unspecified joint (CMS/HCC V24, CMS/HCC V28) CBC AND DIFFERENTIAL Routine 10/03/2024 12:00 AM EDT Arthritis due to other bacteria, unspecified joint (CMS/HCC V24, CMS/HCC V28) CREATINE KINASE Routine 10/03/2024 12:00 AM EDT Arthritis due to other bacteria, unspecified joint (CMS/HCC V24, CMS/HCC V28) COMPREHENSIVE METABOLIC PANEL Routine 10/03/2024 12:00 AM EDT Arthritis due to other bacteria, unspecified joint (CMS/HCC V24, CMS/HCC V28) documented in this encounter Results * Lavender tube (10/03/2024 12:00 AM EDT) Extra Tube Hold for add-ons. 10/03/2024 6:01 PM EDT [facility] Comment:Auto resulted. Blood Venous blood specimen / Unknown 10/03/2024 10/03/2024 4:41 PM EDT us Stan Glez MD LAB BLOOD ORDERABLES Final Resul t [facility] [address] [place] [address], [place] [phone] * (ABNORMAL) CBC auto differential (10/03/2024 12:00 AM EDT) WBC 9.4 4.8 - 10.8 K/mcL LAB HEMETOLOGY METHOD 10/03/2024 5:13 PM EDT [facility] RBC 3.10(L) 4.50 - 5.50 M/mcL LAB HEMETOLOGY METHOD 10/03/2024 5:13 PM EDT [facility] Hemoglobin 9.5(L) 13.5 - 17.5 g/dL LAB HEMETOLOGY METHOD 10/03/2024 5:13 PM EDT [facility] Hematocrit 31.8(L) 42.0 - 54.0 % LAB HEMETOLOGY METHOD 10/03/2024 5:13 PM EDT [facility] MCV 103.2(H) 79.0 - 98.0 FL LAB HEMETOLOGY METHOD 10/03/2024 5:13 PM EDT [facility] MCH 30.8 27.0 - 32.0 pcg LAB HEMETOLOGY METHOD 10/03/2024 5:13 PM EDT [facility] MCHC 29.9(L) 32.0 - 37.0 g/dL LAB HEMETOLOGY METHOD 10/03/2024 5:13 PM EDT [facility] RDW 18.0(H) 11.0 - 15.0 % LAB HEMETOLOGY METHOD 10/03/2024 5:13 PM [facility] Platelets 282 130 - 400 K/mcL LAB HEMETOLOGY METHOD 10/03/2024 5:13 PM [facility] MPV 10.1 7.0 - 11.0 FL LAB HEMETOLOGY METHOD 10/03/2024 5:13 PM [facility] NRBC 0.0 <1.0 % LAB HEMETOLOGY METHOD 10/03/2024 5:13 PM [facility] NRBC Absolute 0.00 <0.10 K/mcL LAB HEMETOLOGY METHOD 10/03/2024 5:13 PM [facility] Neutrophils Relative 82.9 % LAB HEMETOLOGY METHOD 10/03/2024 5:13 PM [facility] Lymphocytes Relative 8.6 % LAB HEMETOLOGY METHOD 10/03/2024 5:13 PM [facility] Monocytes Relative 6.4 % LAB HEMETOLOGY METHOD 10/03/2024 5:13 PM [facility] Eosinophils Relative 1.5 % LAB HEMETOLOGY METHOD 10/03/2024 5:13 PM [facility] Basophils Relative 0.4 % LAB HEMETOLOGY METHOD 10/03/2024 5:13 PM [facility] Immature Granulocytes Relative 0.2 % LAB HEMETOLOGY METHOD 10/03/2024 5:13 PM [facility] Neutrophils Absolute 7.82(H) 1.50 - 7.00 K/mcL LAB HEMETOLOGY METHOD 10/03/2024 5:13 PM [facility] Lymphocytes Absolute 0.81(L) 1.00 - 5.00 K/mcL LAB HEMETOLOGY METHOD 10/03/2024 5:13 PM [facility] Monocytes Absolute 0.60 0.20 - 1.00 K/mcL LAB HEMETOLOGY METHOD 10/03/2024 5:13 PM EDT [facility] Eosinophils Absolute 0.14 0.00 - 0.50 K/mcL LAB HEMETOLOGY METHOD 10/03/2024 5:13 PM EDT [facility] Basophils Absolute 0.04 0.00 - 0.20 K/[facility] LAB HEMETOLOGY METHOD 10/03/2024 5:13 PM EDT [facility] Immature Granulocytes Absolute 0.02 0.00 - 0.03 K/[facility] LAB HEMETOLOGY METHOD 10/03/2024 5:13 PM EDT [facility] Blood Venous blood specimen / Unknown 10/03/2024 10/03/2024 4:40 PM EDT us Stan Glez MD LAB BLOOD ORDERABLES Final Resul t Performing Organization Address City/[facility]/ZIP Co de Phone Number [facility] [address] [place] [address], [place] [phone] * Creatine kinase (10/03/2024 12:00 AM EDT) Pathologist [facility] Total CK 55 22 - 269 unit/L LAB CHEMISTRY METHOD 10/03/2024 9:09 PM EDT [facility] Blood Venous blood specimen / Unknown 10/03/2024 10/03/2024 4:40 PM EDT us Stan Glez MD LAB BLOOD ORDERABLES Final Resul t [facility] [address] [place] [address], [place] [phone] * Comprehensive metabolic panel (10/03/2024 12:00 AM EDT) Sodium 134 133 - 145 mmol/L LAB CHEMISTRY METHOD 10/03/2024 9:20 PM EDT [facility] Potassium 4.2 3.5 - 5.5 mmol/L LAB CHEMISTRY METHOD 10/03/2024 9:20 PM [facility] Chloride 99 96 - 110 mmol/L LAB CHEMISTRY METHOD 10/03/2024 9:20 PM [facility] CO2 27 21 - 32 mmol/L LAB CHEMISTRY METHOD 10/03/2024 9:20 PM [facility] Anion Gap 8 3 - 11 LAB CHEMISTRY METHOD 10/03/2024 9:20 PM [facility] Glucose 77 70 - 100 mg/dL LAB CHEMISTRY METHOD 10/03/2024 9:20 PM [facility] BUN 23 5 - 25 mg/dL LAB CHEMISTRY METHOD 10/03/2024 9:20 PM [facility] Creatinine 1.03 0.70 - 1.30 mg/dL LAB CHEMISTRY METHOD 10/03/2024 9:20 PM [facility] eGFR 75 >=60 mL/min/1. 73m2 LAB CHEMISTRY METHOD 10/03/2024 9:20 PM [facility] Comment:Calculation based on the Chronic Kidney Disease Epidemiology Collaboration (CKD-EPI) equation refit without adjustment for race. BUN/Creatinine Ratio 22.3 LAB CHEMISTRY METHOD 10/03/2024 9:20 PM [facility] Calcium 8.5 8.5 - 10.5 mg/dL LAB CHEMISTRY METHOD 10/03/2024 9:20 PM [facility] AST (SGOT) 26 10 - 42 unit/L LAB CHEMISTRY METHOD 10/03/2024 9:20 PM [facility] ALT (SGPT) 17 10 - 60 unit/L LAB CHEMISTRY METHOD 10/03/2024 9:20 PM [facility] Alkaline Phosphatase 104 42 - 121 unit/L LAB CHEMISTRY METHOD 10/03/2024 9:20 PM [facility] Total Protein 6.8 6.0 - 8.0 g/dL LAB CHEMISTRY METHOD 10/03/2024 9:20 PM EDT [facility] Albumin 3.3 3.2 - 5.0 g/dL LAB CHEMISTRY METHOD 10/03/2024 9:20 PM EDT [facility] Total Bilirubin 1.0 0.0 - 1.4 mg/dL LAB CHEMISTRY METHOD 10/03/2024 9:20 PM EDT [facility] Blood Venous blood specimen / Unknown 10/03/2024 10/03/2024 4:40 PM EDT us Stan Glez MD LAB BLOOD ORDERABLES Final Resul t Performing Organization Address City/[facility]/ZIP Co de Phone Number [facility] [address] [place] [address], [place] [phone] * (ABNORMAL) Sedimentation rate (10/03/2024 12:00 AM EDT) Sed Rate 52(H) 0 - 20 mm/hr LAB HEMETOLOGY METHOD 10/03/2024 5:22 PM EDT [facility] Blood Venous blood specimen / Unknown 10/03/2024 10/03/2024 4:40 PM EDT us Stan Glez MD LAB BLOOD ORDERABLES Final Resul t Performing Organization Address City/[facility]/ZIP Co de Phone Number [facility] [address] [place] [address], [place] [phone] documented in this encounter Visit Diagnoses Diagnosis Arthritis due to other bacteria, unspecified joint (CMS/HCC V24, CMS/HCC V28) documented in this encounter Care Teams Baggage Agent Relationship Specialty Start Date End Date Willy Benton MD [address] [place] [phone] PCP - General Internal Medicine 02/04/21 documented as of this encounter
--- OUTSIDE RECORDS SUMMARY | 2025-05-22 18:55 | XMS_ITS | Encounter Summary ---
Author Organization [facility] Address [address] [place] [address] Care Team Providers Care Pipe Puller Name Role Phone Willy Benton MD Primary Care Provider Encounter Details Date Type Department Care Team (Late st Contact Info) Description 10/10/2024 Lab Requisition [facility] - Main Lab 299 [facility] [place] [address] Stan Glez MD [address] [place] [address] Pyogenic arthritis, unspecified (CMS/HCC V24, CMS/HCC V28) [...] 05/23/2025 11:15 AM EST Clinical Support Coumadin [address] [phone] 10/03/2025 11:30 AM EDT Office Visit Adult Medicine [address] [phone] Willy Benton MD [address] [place] [address] documented as of this encounter Procedures Procedure Name Priority Date/Time Associated Diagnosis Comments CBC WITH AUTO DIFFERENTIAL Routine 10/10/2024 12:30 PM EDT Pyogenic arthritis, unspecified (CMS/HCC V24, CMS/HCC V28) SEDIMENTATION RATE Routine 10/10/2024 12 :30 PM EDT Pyogenic arthritis, unspecified (CMS/HCC V24, CMS/HCC V28) CBC AND DIFFERENTIAL Routine 10/10/2024 12:30 PM EDT Pyogenic arthritis, unspecified (CMS/HCC V24, CMS/HCC V28) CREATINE KINASE Routine 10/10/2024 12:30 PM EDT Pyogenic arthritis, unspecified (CMS/HCC V24, CMS/HCC V28) COMPREHENSIVE METABOLIC PANEL Routine 10/10/2024 12:30 PM EDT Pyogenic arthritis, unspecified (CMS/HCC V24, CMS/HCC V28) documented in this encounter Results * Creatine kinase (10/10/2024 12:30 PM EDT) Total CK 45 22 - 269 unit/L LAB CHEMISTRY METHOD 10/11/2024 7:05 AM EDT [facility] Blood Venous blood specimen / Unknown 10/10/2024 12:30 PM EDT 10/10/2024 1:56 PM EDT Stan Glez MD LAB BLOOD ORDERABLES Final Resul t [facility] [address] [place] [address], * (ABNORMAL) CBC auto differential (10/10/2024 12:30 PM EDT) WBC 7.8 4.8 - 10.8 K/mcL LAB HEMETOLOGY METHOD 10/10/2024 2:32 PM EDT [facility] RBC 3.20(L) 4.50 - 5.50 M/mcL LAB HEMETOLOGY METHOD 10/10/2024 2:32 PM EDT [facility] Hemoglobin 10.1(L) 13.5 - 17.5 g/dL LAB HEMETOLOGY METHOD 10/10/2024 2:32 PM EDT [facility] Hematocrit 32.7(L) 42.0 - 54.0 % LAB HEMETOLOGY METHOD 10/10/2024 2:32 PM EDT [facility] MCV 101.2(H) 79.0 - 98.0 FL LAB HEMETOLOGY METHOD 10/10/2024 2:32 PM EDT [facility] MCH 31.3 27.0 - 32.0 pcg LAB HEMETOLOGY METHOD 10/10/2024 2:32 PM EDT [facility] MCHC 30.9(L) 32.0 - 37.0 g/dL LAB HEMETOLOGY METHOD 10/10/2024 2:32 PM EDT [facility] RDW 18.1(H) 11.0 - 15.0 % LAB HEMETOLOGY METHOD 10/10/2024 2:32 PM EDT [facility] Platelets 267 130 - 400 K/mcL LAB HEMETOLOGY METHOD 10/10/2024 2:32 PM EDT [facility] MPV 9.7 7.0 - 11.0 FL LAB HEMETOLOGY METHOD 10/10/2024 2:32 PM EDT [facility] NRBC 0.0 <1.0 % LAB HEMETOLOGY METHOD 10/10/2024 2:32 PM [facility] NRBC Absolute 0.00 <0.10 K/mcL LAB HEMETOLOGY METHOD 10/10/2024 2:32 PM [facility] Neutrophils Relative 78.0 % LAB HEMETOLOGY METHOD 10/10/2024 2:32 PM [facility] Lymphocytes Relative 11.7 % LAB HEMETOLOGY METHOD 10/10/2024 2:32 PM [facility] Monocytes Relative 6.7 % LAB HEMETOLOGY METHOD 10/10/2024 2:32 PM [facility] Eosinophils Relative 2.4 % LAB HEMETOLOGY METHOD 10/10/2024 2:32 PM [facility] Basophils Relative 0.8 % LAB HEMETOLOGY METHOD 10/10/2024 2:32 PM [facility] Immature Granulocytes Relative 0.4 % LAB HEMETOLOGY METHOD 10/10/2024 2:32 PM [facility] Neutrophils Absolute 6.08 1.50 - 7.00 K/mcL LAB HEMETOLOGY METHOD 10/10/2024 2:32 PM [facility] Lymphocytes Absolute 0.91(L) 1.00 - 5.00 K/mcL LAB HEMETOLOGY METHOD 10/10/2024 2:32 PM [facility] Monocytes Absolute 0.52 0.20 - 1.00 K/mcL LAB HEMETOLOGY METHOD 10/10/2024 2:32 PM [facility] Eosinophils Absolute 0.19 0.00 - 0.50 K/mcL LAB HEMETOLOGY METHOD 10/10/2024 2:32 PM [facility] Basophils Absolute 0.06 0.00 - 0.20 K/mcL LAB HEMETOLOGY METHOD 10/10/2024 2:32 PM EDT [facility] Immature Granulocytes Absolute 0.03 0.00 - 0.03 K/[facility] LAB HEMETOLOGY METHOD 10/10/2024 2:32 PM EDT [facility] Blood Venous blood specimen / Unknown 10/10/2024 12:30 PM EDT 10/10/2024 1:56 PM EDT us Stan Glez MD LAB BLOOD ORDERABLES Final Resul t Performing Organization Address [facility]/ZIP Co de Phone Number [facility] [address] [place] [address], [place] [phone] * (ABNORMAL) Sedimentation rate (10/10/2024 12:30 PM EDT) Sed Rate 38(H) 0 - 20 mm/hr LAB HEMETOLOGY METHOD 10/10/2024 2:41 PM EDT [facility] Blood Venous blood specimen / Unknown 10/10/2024 12:30 PM EDT 10/10/2024 1:56 PM EDT Stan Glez MD LAB BLOOD ORDERABLES Final Resul t Performing Organization Address [facility]/ZIP Co de Phone Number [facility] [address] [place] [address], [place] [phone] * (ABNORMAL) Comprehensive metabolic panel (10/10/2024 12:30 PM EDT) Sodium 135 133 - 145 mmol/L LAB CHEMISTRY METHOD 10/10/2024 2:34 PM EDT [facility] Potassium 4.4 3.5 - 5.5 mmol/L LAB CHEMISTRY METHOD 10/10/2024 2:34 PM EDT [facility] Chloride 102 96 - 110 mmol/L LAB CHEMISTRY METHOD 10/10/2024 2:34 PM [facility] CO2 28 21 - 32 mmol/L LAB CHEMISTRY METHOD 10/10/2024 2:34 PM [facility] Anion Gap 5 3 - 11 LAB CHEMISTRY METHOD 10/10/2024 2:34 PM [facility] Glucose 149(H) 70 - 100 mg/dL LAB CHEMISTRY METHOD 10/10/2024 2:34 PM [facility] BUN 18 5 - 25 mg/dL LAB CHEMISTRY METHOD 10/10/2024 2:34 PM [facility] Creatinine 0.95 0.70 - 1.30 mg/dL LAB CHEMISTRY METHOD 10/10/2024 2:34 PM [facility] eGFR 82 >=60 mL/min/1. 73m2 LAB CHEMISTRY METHOD 10/10/2024 2:34 PM [facility] Comment:Calculation based on the Chronic Kidney Disease Epidemiology Collaboration (CKD-EPI) equation refit without adjustment for race. BUN/Creatinine Ratio 18.9 LAB CHEMISTRY METHOD 10/10/2024 2:34 PM [facility] Calcium 8.8 8.5 - 10.5 mg/dL LAB CHEMISTRY METHOD 10/10/2024 2:34 PM [facility] AST (SGOT) 26 10 - 42 unit/L LAB CHEMISTRY METHOD 10/10/2024 2:34 PM [facility] ALT (SGPT) 15 10 - 60 unit/L LAB CHEMISTRY METHOD 10/10/2024 2:34 PM [facility] Alkaline Phosphatase 101 42 - 121 unit/L LAB CHEMISTRY METHOD 10/10/2024 2:34 PM [facility] Total Protein 6.9 6.0 - 8.0 g/dL LAB CHEMISTRY METHOD 10/10/2024 2:34 PM [facility] Albumin 3.4 3.2 - 5.0 g/dL LAB CHEMISTRY METHOD 10/10/2024 2:34 PM EDT [facility] Total Bilirubin 0.8 0.0 - 1.4 mg/dL LAB CHEMISTRY METHOD 10/10/2024 2:34 PM EDT [facility] Blood Venous blood specimen / Unknown 10/10/2024 12:30 PM EDT 10/10/2024 1:56 PM EDT us Stan Glez MD LAB BLOOD ORDERABLES Final Resul t [facility] [address] [place] [address], documented in this encounter Visit Diagnoses Diagnosis Pyogenic arthritis, unspecified (CMS/HCC V24, CMS/HCC V28) documented in this encounter Care Teams Pipe Puller Relationship Specialty Start Date End Date Willy Benton MD [address] [place] [phone] PCP - General Internal Medicine 02/04/21 documented as of this encounter
--- OUTSIDE RECORDS SUMMARY | 2025-05-22 18:55 | XMS_ITS | Encounter Summary ---
Author Organization [facility] Address [address] [place] [address] Care Team Providers Care Grease Maker Head Name Role Phone Willy Benton MD Primary Care Provider [phone] Encounter Details Date Type Department Care Team (Late Contact Info) Description 10/17/2024 Lab Requisition [facility] - Main Lab 299 [facility] [place] [address] Deirdre Muller PA [address] [place] [address] Social History Tobacco Use Types Packs/Day Years [...] 05/23/2025 11:15 AM EST Clinical Support Coumadin [address] [phone] 10/03/2025 11:30 AM EDT Office Visit Adult Medicine [address] [phone] Willy Benton MD [address] [place] [address] documented as of this encounter Visit Diagnoses Not on filedocumented in this encounter Care Teams Grease Maker Head Relationship Specialty Start Date End Date Willy Benton MD [address] [place] [address] PCP - General Internal Medicine 02/04/21 documented as of this encounter
--- OUTSIDE RECORDS SUMMARY | 2025-05-22 18:55 | XMS_ITS | Encounter Summary ---
Author Organization [facility] Address [address] [place] [address] Care Team Providers Care Script Worker Name Role Phone Willy Benton MD Primary Care Provider [phone] Encounter Details Date Type Department Care Team (Late st Contact Info) Description 09/15/2024 Lab Requisition [facility] - Main Lab [address] [facility] [place] [address] Merrick Crooks MD [address] [place] [id number] Encounter for other general examination Social History [...] 05/23/2025 11:15 AM EST Clinical Support Coumadin [address], [place] [phone] 10/03/2025 11:30 AM EDT Office Visit Adult Medicine [address] [phone] Willy Benton MD [address] [place], [place] documented as of this encounter Procedures Procedure Name Priority Date/Time Associated Diagnosis Comments CBC WITH AUTO DIFFERENTIAL Routine 09/15/2024 5:28 AM EDT Encounter for other general examination PROTHROMBIN TIME WITH INR Routine 09/15/2024 5:28 AM EDT Encounter for other general examination CBC AND DIFFERENTIAL Routine 09/15/2024 5:28 AM EDT Encounter for other general examination MAGNESIUM Routine 09/15/2024 5:28 AM EDT Encounter for other general examination COMPREHENSIVE METABOLIC PANEL Routine 09/15/2024 5:28 AM EDT Encounter for other general examination documented in this encounter Results * (ABNORMAL) CBC auto differential (09/15/2024 5:28 AM EDT) [facility] WBC 7.7 4.8 - 10.8 K/mcL LAB HEMETOLOGY METHOD 09/15/2024 9:46 AM EDT [facility] RBC 2.80(L) 4.50 - 5.50 M/mcL LAB HEMETOLOGY METHOD 09/15/2024 9:46 AM EDT [facility] Hemoglobin 8.8(L) 13.5 - 17.5 g/dL LAB HEMETOLOGY METHOD 09/15/2024 9:46 AM EDT [facility] Hematocrit 28.2(L) 42.0 - 54.0 % LAB HEMETOLOGY METHOD 09/15/2024 9:46 AM EDT [facility] MCV 101.4(H) 79.0 - 98.0 FL LAB HEMETOLOGY METHOD 09/15/2024 9:46 AM [facility] MCH 31.7 27.0 - 32.0 pcg LAB HEMETOLOGY METHOD 09/15/2024 9:46 AM [facility] MCHC 31.2(L) 32.0 - 37.0 g/dL LAB HEMETOLOGY METHOD 09/15/2024 9:46 AM [facility] RDW 16.1(H) 11.0 - 15.0 % LAB HEMETOLOGY METHOD 09/15/2024 9:46 AM [facility] Platelets 382 130 - 400 K/mcL LAB HEMETOLOGY METHOD 09/15/2024 9:46 AM [facility] MPV 9.6 7.0 - 11.0 FL LAB HEMETOLOGY METHOD 09/15/2024 9:46 AM [facility] NRBC 0.0 <1.0 % LAB HEMETOLOGY METHOD 09/15/2024 9:46 AM [facility] NRBC Absolute 0.00 <0.10 K/mcL LAB HEMETOLOGY METHOD 09/15/2024 9:46 AM [facility] Neutrophils Relative 73.7 % LAB HEMETOLOGY METHOD 09/15/2024 9:46 AM [facility] Lymphocytes Relative 13.5 % LAB HEMETOLOGY METHOD 09/15/2024 9:46 AM [facility] Monocytes Relative 8.5 % LAB HEMETOLOGY METHOD 09/15/2024 9:46 AM [facility] Eosinophils Relative 2.9 % LAB HEMETOLOGY METHOD 09/15/2024 9:46 AM [facility] Basophils Relative 0.9 % LAB HEMETOLOGY METHOD 09/15/2024 9:46 AM EDT [facility] Immature Granulocytes Relative 0.5 % LAB HEMETOLOGY METHOD 09/15/2024 9:46 AM EDT [facility] Neutrophils Absolute 5.67 1.50 - 7.00 K/mcL LAB HEMETOLOGY METHOD 09/15/2024 9:46 AM EDT [facility] Lymphocytes Absolute 1.04 1.00 - 5.00 K/mcL LAB HEMETOLOGY METHOD 09/15/2024 9:46 AM EDT [facility] Monocytes Absolute 0.65 0.20 - 1.00 K/mcL LAB HEMETOLOGY METHOD 09/15/2024 9:46 AM EDT [facility] Eosinophils Absolute 0.22 0.00 - 0.50 K/mcL LAB HEMETOLOGY METHOD 09/15/2024 9:46 AM [facility] Basophils Absolute 0.07 0.00 - 0.20 K/mcL LAB HEMETOLOGY METHOD 09/15/2024 9:46 AM EDT [facility] Immature Granulocytes Absolute 0.04(H) 0.00 - 0.03 K/mcL LAB HEMETOLOGY METHOD 09/15/2024 9:46 AM [facility] Blood Venous blood specimen / Unknown Venipuncture / Unknown 09/15/2024 5:28 AM EDT 09/15/2024 8:24 AM EDT us Merrick Crooks MD LAB BLOOD ORDERABLES Final Resu lt [facility] [address] [place] [address], * (ABNORMAL) Prothrombin time with INR (09/15/2024 5:28 AM EDT) Protime 35.2(H) 10.6 - 13.9 sec LAB COAGULATION METHOD 09/15/2024 9:45 AM EDT [facility] INR 2.9 LAB COAGULATION METHOD 09/15/2024 9:45 AM EDT [facility] Blood Venous blood specimen / Unknown Venipuncture / Unknown 09/15/2024 5:28 AM EDT 09/15/2024 8:24 AM EDT us Merrick Crooks MD LAB BLOOD ORDERABLES Final Resu lt Performing Organization Address City/[facility]/ZIP Co de Phone Number [facility] [address] [place] [address], [place] [phone] * Magnesium (09/15/2024 5:28 AM EDT) Pathologist [facility] Magnesium 2.0 1.9 - 2.6 mg/dL LAB CHEMISTRY METHOD 09/15/2024 10:08 AM EDT [facility] Blood Venous blood specimen / Unknown Venipuncture / Unknown 09/15/2024 5:28 AM EDT 09/15/2024 8:24 AM EDT us Merrick Crooks MD LAB BLOOD ORDERABLES Final Resu lt Performing Organization Address [facility]/ZIP Co de Phone Number [facility] [address] [place] [address], [place] [phone] * (ABNORMAL) Comprehensive metabolic panel (09/15/2024 5:28 AM EDT) Sodium 135 133 - 145 mmol/L LAB CHEMISTRY METHOD 09/15/2024 10:08 AM EDT [facility] Potassium 4.1 3.5 - 5.5 mmol/L LAB CHEMISTRY METHOD 09/15/2024 10:08 AM EDT [facility] Chloride 96 96 - 110 mmol/L LAB CHEMISTRY METHOD 09/15/2024 10:08 AM EDT [facility] CO2 33(H) 21 - 32 mmol/L LAB CHEMISTRY METHOD 09/15/2024 10:08 AM [facility] Anion Gap 6 3 - 11 LAB CHEMISTRY METHOD 09/15/2024 10:08 AM [facility] Glucose 80 70 - 100 mg/dL LAB CHEMISTRY METHOD 09/15/2024 10:08 AM [facility] BUN 18 5 - 25 mg/dL LAB CHEMISTRY METHOD 09/15/2024 10:08 AM [facility] Creatinine 0.75 0.70 - 1.30 mg/dL LAB CHEMISTRY METHOD 09/15/2024 10:08 AM [facility] eGFR 93 >=60 mL/min/1. 73m2 LAB CHEMISTRY METHOD 09/15/2024 10:08 AM [facility] Comment:Calculation based on the Chronic Kidney Disease Epidemiology Collaboration (CKD-EPI) equation refit without adjustment for race. BUN/Creatinine Ratio 24.0 LAB CHEMISTRY METHOD 09/15/2024 10:08 AM [facility] Calcium 8.6 8.5 - 10.5 mg/dL LAB CHEMISTRY METHOD 09/15/2024 10:08 AM [facility] AST (SGOT) 33 10 - 42 unit/L LAB CHEMISTRY METHOD 09/15/2024 10:08 AM [facility] ALT (SGPT) 21 10 - 60 unit/L LAB CHEMISTRY METHOD 09/15/2024 10:08 AM [facility] Alkaline Phosphatase 121 42 - 121 unit/L LAB CHEMISTRY METHOD 09/15/2024 10:08 AM [facility] Total Protein 6.1 6.0 - 8.0 g/dL LAB CHEMISTRY METHOD 09/15/2024 10:08 AM [facility] Albumin 2.3(L) 3.2 - 5.0 g/dL LAB CHEMISTRY METHOD 09/15/2024 10:08 AM [facility] Total Bilirubin 1.0 0.0 - 1.4 mg/dL LAB CHEMISTRY METHOD 09/15/2024 10:08 AM EDT [facility] Blood Venous blood specimen / Unknown Venipuncture / Unknown 09/15/2024 5:28 AM EDT 09/15/2024 8:24 AM EDT us Merrick Crooks MD LAB BLOOD ORDERABLES Final Resu lt [facility] [address] [place] [address], documented in this encounter Visit Diagnoses Diagnosis Encounter for other general examination documented in this encounter Care Teams Script Worker Relationship Specialty Start Date End Date Willy Benton MD [address] [place] [phone] PCP - General Internal Medicine 02/04/21 documented as of this encounter
--- OUTSIDE RECORDS SUMMARY | 2025-05-22 18:55 | XMS_ITS ---
Author Name [facility] Organization Unknown Results Test Name/Text Value Interpretation Date Range Source Anion Gap SerPl-sCnc 7.0 Normal 09/14/2024 5 - 14 [facility] Glucose SerPl-mCnc 105.0 mg/dL Normal 09/14/2024 70 - 199 [facility] BUN/Creat SerPl 18.8 Normal 09/14/2024 12 - 20 [facility] Chloride SerPl-sCnc 94.0 mmol/L Below low normal 09/14/2024 98 - 107 [facility] Calcium SerPl-mCnc 8.3 mg/dL Below low normal 09/14/2024 8.4 - 10.2 [facility] CO2 SerPl-sCnc 33.0 mmol/L Above high normal 09/14/2024 24 - 32 [facility] eGFRcr SerPlBld CKD-EPI 2020 91.0 mL/min/1.73m2 Normal 09/14/2024 - [facility] Sodium SerPl-sCnc 134.0 mmol/L Below low normal 09/14/2024 1 35 - 145 [facility] BUN SerPl-mCnc 15.0 mg/dL Normal 09/14/2024 9 - 20 [facility] Potassium SerPl-sCnc 3.8 mmol/L Normal 09/14/2024 3.5 - 5.1 [facility] Creat SerPl-mCnc 0.8 mg/dL Normal 09/14/2024 0.7 - 1.3 [facility] PT Bld 38.0 sec Above high normal 09/14/2024 10.5 - 13.3 [facility] INR PPP 3.2 Above high normal 09/14/2024 0.8 - 1.1 [facility] MCV RBC Auto 95.5 FL Normal 09/14/2024 78 - 100 [facility] WBC # Bld Auto 8.0 K/mcL Normal 09/14/2024 4 - 10.5 [facility] PMV Bld Auto 7.5 FL Normal 09/14/2024 7.4 - 11.4 [facility] Hct VFr Bld Auto 25.0 % Below low normal 09/14/2024 40 - 54 [facility] MCH RBC Qn Auto 32.5 pcg Normal 09/14/2024 25 - 33 [facility] Platelet # Bld Auto 345.0 K/mcL Normal 09/14/2024 150 - 450 [facility] RDW RBC Auto-Rto 16.1 % Normal 09/14/2024 12.1 - 17.7 [facility] Hgb Bld-mCnc 8.5 g/dL Below low normal 09/14/2024 13.5 - 18 [facility] MCHC RBC Auto-mCnc 34.0 g/dL Normal 09/14/2024 32 - 36 [facility] RBC # Bld Auto 2.62 M/mcL Below low normal 09/14/2024 4.7 - 6 [facility] ESR Bld Qn Westrgrn 70.0 mm/hr Above high normal 09/13/2024 0 - 15 [facility] PT Bld 33.3 sec Above high normal 09/13/2024 10.5 - 13.3 [facility] INR PPP 2.8 Above high normal 09/13/2024 0.8 - 1.1 [facility] Glucose SerPl-mCnc 115.0 mg/dL Normal 09/13/2024 70 - 199 [facility] BUN SerPl-mCnc 13.0 mg/dL Normal 09/13/2024 9 - 20 [facility] Chloride SerPl-sCnc 93.0 mmol/L Below low normal 09/13/2024 98 - 107 [facility] eGFRcr SerPlBld CKD-EPI 2020 91.0 mL/min/1.73m2 Normal 09/13/2024 - [facility] CO2 SerPl-sCnc 32.0 mmol/L Normal 09/13/2024 24 - 32 [facility] Anion Gap SerPl-sCnc 8.0 Normal 09/13/2024 5 - 14 [facility] Potassium SerPl-sCnc 3.3 mmol/L Below low normal 09/13/2024 3.5 - 5.1 [facility] Calcium SerPl-mCnc 8.1 mg/dL Below low normal 09/13/2024 8.4 - 10.2 [facility] BUN/Creat SerPl 16.3 Normal 09/13/2024 12 - 20 [facility] Creat SerPl-mCnc 0.8 mg/dL Normal 09/13/2024 0.7 - 1.3 CT [facility] Sodium SerPl-sCnc 133.0 mmol/L Below low normal 09/13/2024 1 35 - 145 [facility] CRP SerPl-mCnc 5.6 mg/dL Above high normal 09/13/2024 - [facility] Urate SerPl-mCnc 3.8 mg/dL Normal 09/13/2024 3.5 - 8.5 [facility] MCV RBC Auto 95.1 FL Normal 09/13/2024 78 - 100 [facility] RBC # Bld Auto 2.68 M/mcL Below low normal 09/13/2024 4.7 - 6 [facility] MCH RBC Qn Auto 32.1 pcg Normal 09/13/2024 25 - 33 [facility] Hct VFr Bld Auto 25.5 % Below low normal 09/13/2024 40 - 54 [facility] Platelet # Bld Auto 351.0 K/mcL Normal 09/13/2024 150 - 450 [facility] PMV Bld Auto 7.1 FL Below low normal 09/13/2024 7.4 - 11. 4 [facility] RDW RBC Auto-Rto 15.9 % Normal 09/13/2024 12.1 - 17.7 [facility] WBC # Bld Auto 8.6 K/mcL Normal 09/13/2024 4 - 10.5 [facility] Hgb Bld-mCnc 8.6 g/dL Below low normal 09/13/2024 13.5 - 18 [facility] MCHC RBC Auto-mCnc 33.8 g/dL Normal 09/13/2024 32 - 36 [facility] Sodium Ur-sCnc 90.0 mmol/L Normal 09/12/2024 50 - 191 [facility] Creat Ur-mCnc 16.4 mg/dL Normal 09/12/2024 [facility] eGFRcr SerPlBld CKD-EPI 2020 95.0 mL/min/1.73m2 Normal 09/12/2024 - [facility] Anion Gap SerPl-sCnc 7.0 Normal 09/12/2024 5 - 14 [facility] CO2 SerPl-sCnc 33.0 mmol/L Above high normal 09/12/2024 24 - 32 [facility] Calcium SerPl-mCnc 8.2 mg/dL Below low normal 09/12/2024 8.4 - 10.2 [facility] Potassium SerPl-sCnc 3.5 mmol/L Normal 09/12/2024 3.5 - 5.1 [facility] BUN SerPl-mCnc 14.0 mg/dL Normal 09/12/2024 9 - 20 [facility] Creat SerPl-mCnc 0.7 mg/dL Normal 09/12/2024 0.7 - 1.3 [facility] Glucose SerPl-mCnc 128.0 mg/dL Normal 09/12/2024 70 - 199 [facility] Chloride SerPl-sCnc 93.0 mmol/L Below low normal 09/12/2024 98 - 107 [facility] BUN/Creat SerPl 20.0 Normal 09/12/2024 12 - 20 [facility] Sodium SerPl-sCnc 133.0 mmol/L Below low normal 09/12/2024 1 35 - 145 [facility] PT Bld 26.7 sec Above high normal 09/12/2024 10.5 - 13.3 [facility] INR PPP 2.3 Above high normal 09/12/2024 0.8 - 1.1 [facility] Platelet # Bld Auto 366.0 K/mcL Normal 09/12/2024 150 - 450 [facility] Hct VFr Bld Auto 27.1 % Below low normal 09/12/2024 40 - 54 [facility] RBC # Bld Auto 2.8 M/mcL Below low normal 09/12/2024 4.7 - 6 [facility] MCHC RBC Auto-mCnc 32.6 g/dL Normal 09/12/2024 32 - 36 [facility] PMV Bld Auto 7.3 FL Below low normal 09/12/2024 7.4 - 11. 4 [facility] Hgb Bld-mCnc 8.8 g/dL Below low normal 09/12/2024 13.5 - 18 [facility] MCV RBC Auto 96.8 FL Normal 09/12/2024 78 - 100 [facility] MCH RBC Qn Auto 31.6 pcg Normal 09/12/2024 25 - 33 [facility] RDW RBC Auto-Rto 16.4 % Normal 09/12/2024 12.1 - 17.7 [facility] WBC # Bld Auto 9.2 K/mcL Normal 09/12/2024 4 - 10.5 [facility] PT Bld 18.5 sec Above high normal 09/11/2024 10.5 - 13.3 [facility] INR PPP 1.6 Above high normal 09/11/2024 0.8 - 1.1 [facility] BUN SerPl-mCnc 13.0 mg/dL Normal 09/11/2024 9 - 20 [facility] Creat SerPl-mCnc 0.6 mg/dL Below low normal 09/11/2024 0.7 - 1.3 [facility] Sodium SerPl-sCnc 131.0 mmol/L Below low normal 09/11/2024 1 35 - 145 [facility] BUN/Creat SerPl 21.7 Above high normal 09/11/2024 12 - 20 [facility] eGFRcr SerPlBld CKD-EPI 2020 99.0 mL/min/1.73m2 Normal 09/11/2024 - [facility] Anion Gap SerPl-sCnc 10.0 Normal 09/11/2024 5 - 14 [facility] Potassium SerPl-sCnc 3.2 mmol/L Below low normal 09/11/2024 3.5 - 5.1 [facility] Calcium SerPl-mCnc 7.8 mg/dL Below low normal 09/11/2024 8.4 - 10.2 [facility] Glucose SerPl-mCnc 110.0 mg/dL Normal 09/11/2024 70 - 199 [facility] CO2 SerPl-sCnc 30.0 mmol/L Normal 09/11/2024 24 - 32 [facility] Chloride SerPl-sCnc 91.0 mmol/L Below low normal 09/11/2024 98 - 107 [facility] Magnesium SerPl-mCnc 2.0 mg/dL Normal 09/11/2024 1.7 - 2.8 [facility] WBC # Bld Auto 10.1 K/mcL Normal 09/11/2024 4 - 10.5 [facility] Hct VFr Bld Auto 27.5 % Below low normal 09/11/2024 40 - 54 [facility] MCH RBC Qn Auto 32.0 pcg Normal 09/11/2024 25 - 33 [facility] RBC # Bld Auto 2.88 M/mcL Below low normal 09/11/2024 4.7 - 6 [facility] MCV RBC Auto 95.5 FL Normal 09/11/2024 78 - 100 [facility] PMV Bld Auto 7.4 FL Normal 09/11/2024 7.4 - 11.4 [facility] Hgb Bld-mCnc 9.2 g/dL Below low normal 09/11/2024 13.5 - 18 [facility] Platelet # Bld Auto 370.0 K/mcL Normal 09/11/2024 150 - 450 [facility] MCHC RBC Auto-mCnc 33.5 g/dL Normal 09/11/2024 32 - 36 [facility] RDW RBC Auto-Rto 15.6 % Normal 09/11/2024 12.1 - 17.7 [facility] Creat SerPl-mCnc 0.6 mg/dL Below low normal 09/10/2024 0.7 - 1.3 [facility] Glucose SerPl-mCnc 96.0 mg/dL Normal 09/10/2024 70 - 199 [facility] Calcium SerPl-mCnc 7.8 mg/dL Below low normal 09/10/2024 8.4 - 10.2 [facility] eGFRcr SerPlBld CKD-EPI 2020 99.0 mL/min/1.73m2 Normal 09/10/2024 - [facility] Chloride SerPl-sCnc 91.0 mmol/L Below low normal 09/10/2024 98 - 107 [facility] Anion Gap SerPl-sCnc 8.0 Normal 09/10/2024 5 - 14 [facility] CO2 SerPl-sCnc 33.0 mmol/L Above high normal 09/10/2024 24 - 32 [facility] BUN/Creat SerPl 20.0 Normal 09/10/2024 12 - 20 [facility] Sodium SerPl-sCnc 132.0 mmol/L Below low normal 09/10/2024 1 35 - 145 [facility] BUN SerPl-mCnc 12.0 mg/dL Normal 09/10/2024 9 - 20 [facility] Potassium SerPl-sCnc 3.2 mmol/L Below low normal 09/10/2024 3.5 - 5.1 [facility] Vancomycin Trough SerPl-mCnc 18.9 mcg/mL Normal 09/10/2024 10 - 20 [facility] INR PPP 1.3 Above high normal 09/10/2024 0.8 - 1.1 [facility] PT Bld 15.8 sec Above high normal 09/10/2024 10.5 - 13.3 [facility] MCHC RBC Auto-mCnc 33.0 g/dL Normal 09/10/2024 32 - 36 [facility] PMV Bld Auto 7.5 FL Normal 09/10/2024 7.4 - 11.4 [facility] Platelet # Bld Auto 356.0 K/mcL Normal 09/10/2024 150 - 450 [facility] RDW RBC Auto-Rto 15.7 % Normal 09/10/2024 12.1 - 17.7 [facility] MCV RBC Auto 95.7 FL Normal 09/10/2024 78 - 100 [facility] MCH RBC Qn Auto 31.6 pcg Normal 09/10/2024 25 - 33 [facility] RBC # Bld Auto 2.97 M/mcL Below low normal 09/10/2024 4.7 - 6 [facility] WBC # Bld Auto 9.4 K/mcL Normal 09/10/2024 4 - 10.5 [facility] Hct VFr Bld Auto 28.4 % Below low normal 09/10/2024 40 - 54 [facility] Hgb Bld-mCnc 9.4 g/dL Below low normal 09/10/2024 13.5 - 18 [facility] Vancomycin Trough SerPl-mCnc 39.7 mcg/mL Above high normal 09/10/2024 10 - 20 [facility] PT Bld 18.4 sec Above high normal 09/09/2024 10.5 - 13.3 [facility] INR PPP 1.6 Above high normal 09/09/2024 0.8 - 1.1 [facility] eGFRcr SerPlBld CKD-EPI 2020 99.0 mL/min/1.73m2 Normal 09/09/2024 - [facility] Calcium SerPl-mCnc 8.2 mg/dL Below low normal 09/09/2024 8.4 - 10.2 [facility] Sodium SerPl-sCnc 131.0 mmol/L Below low normal 09/09/2024 1 35 - 145 [facility] BUN SerPl-mCnc 13.0 mg/dL Normal 09/09/2024 9 - 20 [facility] Glucose SerPl-mCnc 131.0 mg/dL Normal 09/09/2024 70 - 199 [facility] Creat SerPl-mCnc 0.6 mg/dL Below low normal 09/09/2024 0.7 - 1.3 [facility] Chloride SerPl-sCnc 90.0 mmol/L Below low normal 09/09/2024 98 - 107 [facility] Potassium SerPl-sCnc 3.5 mmol/L Normal 09/09/2024 3.5 - 5.1 [facility] CO2 SerPl-sCnc 33.0 mmol/L Above high normal 09/09/2024 24 - 32 [facility] Anion Gap SerPl-sCnc 8.0 Normal 09/09/2024 5 - 14 [facility] BUN/Creat SerPl 21.7 Above high normal 09/09/2024 12 - 20 [facility] Phosphate SerPl-mCnc 3.0 mg/dL Normal 09/09/2024 2.5 - 4.5 [facility] Magnesium SerPl-mCnc 1.8 mg/dL Normal 09/09/2024 1.7 - 2.8 [facility] Neutrophils # Bld Auto 8.5 K/mcL Above high normal 09/09/2024 1.8 - 7.8 [facility] Neutrophils/leuk NFr Bld Auto 81.2 % Above high normal 09/09/2024 44 - 74 [facility] Monocytes/leuk NFr Bld Auto 6.8 % Normal 09/09/2024 2 - 12 [facility] Platelet # Bld Auto 334.0 K/mcL Normal 09/09/2024 150 - 450 [facility] RBC # Bld Auto 2.99 M/mcL Below low normal 09/09/2024 4.7 - 6 [facility] MCHC RBC Auto-mCnc 33.2 g/dL Normal 09/09/2024 32 - 36 [facility] Basophils/leuk NFr Bld Auto 0.9 % Normal 09/09/2024 0 - 2 [facility] Lymphocytes # Bld Auto 1.0 K/mcL Normal 09/09/2024 1 - 3.2 [facility] MCH RBC Qn Auto 31.7 pcg Normal 09/09/2024 25 - 33 [facility] Hct VFr Bld Auto 28.6 % Below low normal 09/09/2024 40 - 54 [facility] Monocytes # Bld Auto 0.7 K/mcL Normal 09/09/2024 0 - 0.8 [facility] PMV Bld Auto 7.3 FL Below low normal 09/09/2024 7.4 - 11. 4 [facility] Hgb Bld-mCnc 9.5 g/dL Below low normal 09/09/2024 13.5 - 18 [facility] Eosinophil/leuk NFr Bld Auto 1.9 % Normal 09/09/2024 0 - 6 [facility] Eosinophil # Bld Auto 0.2 K/mcL Normal 09/09/2024 0 - 0.5 [facility] WBC # Bld Auto 10.4 K/mcL Normal 09/09/2024 4 - 10.5 [facility] Basophils # Bld Auto 0.1 K/mcL Normal 09/09/2024 0 - 0.2 [facility] RDW RBC Auto-Rto 15.5 % Normal 09/09/2024 12.1 - 17.7 [facility] MCV RBC Auto 95.6 FL Normal 09/09/2024 78 - 100 [facility] Lymphocytes/leuk NFr Bld Auto 9.2 % Below low normal 09/09/2024 20 - 48 [facility] Monocytes # Bld Auto 0.7 K/mcL Normal 09/08/2024 0 - 0.8 [facility] Monocytes/leuk NFr Bld Auto 5.4 % Normal 09/08/2024 2 - 12 [facility] Platelet # Bld Auto 372.0 K/mcL Normal 09/08/2024 150 - 450 [facility] Hgb Bld-mCnc 9.8 g/dL Below low normal 09/08/2024 13.5 - 18 [facility] MCV RBC Auto 95.4 FL Normal 09/08/2024 78 - 100 [facility] Lymphocytes # Bld Auto 0.8 K/mcL Below low normal 09/08/2024 1 - 3.2 [facility] RBC # Bld Auto 3.06 M/mcL Below low normal 09/08/2024 4.7 - 6 [facility] MCH RBC Qn Auto 31.9 pcg Normal 09/08/2024 25 - 33 [facility] MCHC RBC Auto-mCnc 33.5 g/dL Normal 09/08/2024 32 - 36 [facility] Lymphocytes/leuk NFr Bld Auto 5.8 % Below low normal 09/08/2024 20 - 48 [facility] Hct VFr Bld Auto 29.2 % Below low normal 09/08/2024 40 - 54 [facility] PMV Bld Auto 7.5 FL Normal 09/08/2024 7.4 - 11.4 [facility] Neutrophils # Bld Auto 12.0 K/mcL Above high normal 09/08/2024 1.8 - 7.8 [facility] RDW RBC Auto-Rto 15.3 % Normal 09/08/2024 12.1 - 17.7 [facility] Basophils # Bld Auto 0.1 K/mcL Normal 09/08/2024 0 - 0.2 [facility] Eosinophil/leuk NFr Bld Auto 0.8 % Normal 09/08/2024 0 - 6 [facility] Neutrophils/leuk NFr Bld Auto 87.5 % Above high normal 09/08/2024 44 - 74 [facility] Basophils/leuk NFr Bld Auto 0.5 % Normal 09/08/2024 0 - 2 [facility] Eosinophil # Bld Auto 0.1 K/mcL Normal 09/08/2024 0 - 0.5 [facility] WBC # Bld Auto 13.7 K/mcL Above high normal 09/08/2024 4 - 1 0.5 [facility] Calcium SerPl-mCnc 8.0 mg/dL Below low normal 09/08/2024 8.4 - 10.2 [facility] CO2 SerPl-sCnc 31.0 mmol/L Normal 09/08/2024 24 - 32 [facility] BUN SerPl-mCnc 15.0 mg/dL Normal 09/08/2024 9 - 20 [facility] Creat SerPl-mCnc 0.7 mg/dL Normal 09/08/2024 0.7 - 1.3 CT [facility] Potassium SerPl-sCnc 4.4 mmol/L Normal 09/08/2024 3.5 - 5.1 [facility] Chloride SerPl-sCnc 90.0 mmol/L Below low normal 09/08/2024 98 - 107 [facility] Glucose SerPl-mCnc 101.0 mg/dL Normal 09/08/2024 70 - 199 [facility] Anion Gap SerPl-sCnc 9.0 Normal 09/08/2024 5 - 14 [facility] eGFRcr SerPlBld CKD-EPI 2020 95.0 mL/min/1.73m2 Normal 09/08/2024 - [facility] Sodium SerPl-sCnc 130.0 mmol/L Below low normal 09/08/2024 1 35 - 145 [facility] BUN/Creat SerPl 21.4 Above high normal 09/08/2024 12 - 20 [facility] Phosphate SerPl-mCnc 3.0 mg/dL Normal 09/08/2024 2.5 - 4.5 [facility] Magnesium SerPl-mCnc 1.8 mg/dL Normal 09/08/2024 1.7 - 2.8 [facility] INR PPP 1.6 Above high normal 09/08/2024 0.8 - 1.1 [facility] PT Bld 19.0 sec Above high normal 09/08/2024 10.5 - 13.3 [facility] Heparin Anti Xa Fld.NB-aCnc <0.04 I Unit/mL Normal 09/08/2024 [facility] Citation Ref Lab Test The technical components of [place] [address] CLIA # [id number] Normal 09/12/2024 [facility] Rh Bld Positive Normal 09/07/2024 [facility] N Bld gp Ab Scn SerPl Ql Negative Normal 09/07/2024 [facility] ABO Group Bld O Normal 09/07/2024 [facility] Glucose Bld-mCnc 107.0 mg/dL Normal 09/07/2024 70 - 199 [facility] Glucose Bld-mCnc 134.0 mg/dL Normal 09/07/2024 70 - 199 [facility] Phosphate SerPl-mCnc 3.0 mg/dL Normal 09/07/2024 2.5 - 4.5 [facility] Chloride SerPl-sCnc 89.0 mmol/L Below low normal 09/07/2024 98 - 107 [facility] Sodium SerPl-sCnc 130.0 mmol/L Below low normal 09/07/2024 1 35 - 145 [facility] Potassium SerPl-sCnc 3.7 mmol/L Normal 09/07/2024 3.5 - 5.1 [facility] Calcium SerPl-mCnc 8.1 mg/dL Below low normal 09/07/2024 8.4 - 10.2 [facility] CO2 SerPl-sCnc 32.0 mmol/L Normal 09/07/2024 24 - 32 [facility] Glucose SerPl-mCnc 109.0 mg/dL Normal 09/07/2024 70 - 199 [facility] Anion Gap SerPl-sCnc 9.0 Normal 09/07/2024 5 - 14 [facility] Creat SerPl-mCnc 0.7 mg/dL Normal 09/07/2024 0.7 - 1.3 [facility] BUN/Creat SerPl 22.9 Above high normal 09/07/2024 12 - 20 [facility] BUN SerPl-mCnc 16.0 mg/dL Normal 09/07/2024 9 - 20 [facility] eGFRcr SerPlBld CKD-EPI 2020 95.0 mL/min/1.73m2 Normal 09/07/2024 - [facility] Magnesium SerPl-mCnc 1.8 mg/dL Normal 09/07/2024 1.7 - 2.8 [facility] Heparin Anti Xa Fld.NB-aCnc 0.56 I Unit/mL Normal 09/07/2024 [facility] PT Bld 20.6 sec Above high normal 09/07/2024 10.5 - 13.3 [facility] INR PPP 1.7 Above high normal 09/07/2024 0.8 - 1.1 [facility] Monocytes # Bld Auto 0.6 K/mcL Normal 09/07/2024 0 - 0.8 [facility] MCH RBC Qn Auto 31.6 pcg Normal 09/07/2024 25 - 33 [facility] PMV Bld Auto 7.8 FL Normal 09/07/2024 7.4 - 11.4 [facility] Eosinophil # Bld Auto 0.2 K/mcL Normal 09/07/2024 0 - 0.5 [facility] Hgb Bld-mCnc 10.7 g/dL Below low normal 09/07/2024 13.5 - 18 [facility] Basophils # Bld Auto 0.2 K/mcL Normal 09/07/2024 0 - 0.2 [facility] Hct VFr Bld Auto 32.1 % Below low normal 09/07/2024 40 - 54 [facility] Lymphocytes # Bld Auto 1.2 K/mcL Normal 09/07/2024 1 - 3.2 [facility] Neutrophils # Bld Auto 12.9 K/mcL Above high normal 09/07/2024 1.8 - 7.8 [facility] RBC # Bld Auto 3.38 M/mcL Below low normal 09/07/2024 4.7 - 6 [facility] MCHC RBC Auto-mCnc 33.3 g/dL Normal 09/07/2024 32 - 36 [facility] RDW RBC Auto-Rto 15.0 % Normal 09/07/2024 12.1 - 17.7 [facility] Eosinophil/leuk NFr Bld Auto 1.6 % Normal 09/07/2024 0 - 6 [facility] Platelet # Bld Auto 404.0 K/mcL Normal 09/07/2024 150 - 450 [facility] Basophils/leuk NFr Bld Auto 1.1 % Normal 09/07/2024 0 - 2 [facility] Lymphocytes/leuk NFr Bld Auto 8.1 % Below low normal 09/07/2024 20 - 48 [facility] Neutrophils/leuk NFr Bld Auto 84.9 % Above high normal 09/07/2024 44 - 74 [facility] MCV RBC Auto 95.0 FL Normal 09/07/2024 78 - 100 [facility] WBC # Bld Auto 15.2 K/mcL Above high normal 09/07/2024 4 - 1 0.5 [facility] Monocytes/leuk NFr Bld Auto 4.3 % Normal 09/07/2024 2 - 12 [facility] Heparin Anti Xa Fld.NB-aCnc 0.12 I Unit/mL Normal 09/07/2024 [facility] Heparin Anti Xa Fld.NB-aCnc 0.1 I Unit/mL Normal 09/07/2024 [facility] Glucose Bld-mCnc 113.0 mg/dL Normal 09/07/2024 70 - 199 [facility] INR PPP 1.8 Above high normal 09/06/2024 0.8 - 1.1 [facility] PT Bld 21.7 sec Above high normal 09/06/2024 10.5 - 13.3 [facility] Heparin Anti Xa Fld.NB-aCnc <0.04 I Unit/mL Normal 09/06/2024 [facility] Heparin Anti Xa Fld.NB-aCnc <0.04 I Unit/mL Normal 09/06/2024 [facility] Heparin Anti Xa Fld.NB-aCnc <0.04 I Unit/mL Normal 09/06/2024 [facility] Chloride SerPl-sCnc 88.0 mmol/L Below low normal 09/06/2024 98 - 107 [facility] BUN SerPl-mCnc 14.0 mg/dL Normal 09/06/2024 9 - 20 [facility] eGFRcr SerPlBld CKD-EPI 2020 95.0 mL/min/1.73m2 Normal 09/06/2024 - [facility] Calcium SerPl-mCnc 8.3 mg/dL Below low normal 09/06/2024 8.4 - 10.2 [facility] Sodium SerPl-sCnc 129.0 mmol/L Below low normal 09/06/2024 1 35 - 145 [facility] BUN/Creat SerPl 20.0 Normal 09/06/2024 12 - 20 [facility] Potassium SerPl-sCnc 3.8 mmol/L Normal 09/06/2024 3.5 - 5.1 [facility] Anion Gap SerPl-sCnc 9.0 Normal 09/06/2024 5 - 14 [facility] Creat SerPl-mCnc 0.7 mg/dL Normal 09/06/2024 0.7 - 1.3 [facility] CO2 SerPl-sCnc 32.0 mmol/L Normal 09/06/2024 24 - 32 [facility] Glucose SerPl-mCnc 127.0 mg/dL Normal 09/06/2024 70 - 199 [facility] Magnesium SerPl-mCnc 1.8 mg/dL Normal 09/06/2024 1.7 - 2.8 [facility] Phosphate SerPl-mCnc 3.2 mg/dL Normal 09/06/2024 2.5 - 4.5 [facility] Monocytes/leuk NFr Bld Auto 4.9 % Normal 09/06/2024 2 - 12 [facility] Eosinophil # Bld Auto 0.1 K/mcL Normal 09/06/2024 0 - 0.5 [facility] RBC # Bld Auto 3.41 M/mcL Below low normal 09/06/2024 4.7 - 6 [facility] RDW RBC Auto-Rto 15.1 % Normal 09/06/2024 12.1 - 17.7 [facility] Basophils/leuk NFr Bld Auto 0.5 % Normal 09/06/2024 0 - 2 [facility] MCHC RBC Auto-mCnc 33.6 g/dL Normal 09/06/2024 32 - 36 [facility] Hgb Bld-mCnc 10.9 g/dL Below low normal 09/06/2024 13.5 - 18 [facility] Hct VFr Bld Auto 32.5 % Below low normal 09/06/2024 40 - 54 [facility] MCH RBC Qn Auto 32.0 pcg Normal 09/06/2024 25 - 33 [facility]_ [facility] Neutrophils/leuk NFr Bld Auto 86.2 % Above high normal 09/06/2024 44 - 74 [facility] MCV RBC Auto 95.4 FL Normal 09/06/2024 78 - 100 [facility] [place] Eosinophil/leuk NFr Bld Auto 1.0 % Normal 09/06/2024 0 - 6 [facility] Monocytes # Bld Auto 0.7 K/mcL Normal 09/06/2024 0 - 0.8 [facility] Lymphocytes # Bld Auto 1.1 K/mcL Normal 09/06/2024 1 - 3.2 [facility] PMV Bld Auto 7.5 FL Normal 09/06/2024 7.4 - 11.4 [facility] Neutrophils # Bld Auto 12.2 K/mcL Above high normal 09/06/2024 1.8 - 7.8 [facility] Basophils # Bld Auto 0.1 K/mcL Normal 09/06/2024 0 - 0.2 [facility] Platelet # Bld Auto 380.0 K/mcL Normal 09/06/2024 150 - 450 [facility] Lymphocytes/leuk NFr Bld Auto 7.4 % Below low normal 09/06/2024 20 - 48 [facility] WBC # Bld Auto 14.2 K/mcL Above high normal 09/06/2024 4 - [address] 0.5 [facility] Glucose Bld-mCnc 108.0 mg/dL Normal 09/06/2024 70 - 199 [facility] Heparin Anti Xa Fld.NB-aCnc 0.91 I Unit/mL Normal 09/06/2024 [facility] Heparin Anti Xa Fld.NB-aCnc <0.04 I Unit/mL Normal 09/06/2024 [facility] Glucose Bld-mCnc 128.0 mg/dL Normal 09/06/2024 70 - 199 [facility] aPTT PPP >150.0 sec Critically high 09/06/2024 25 - 37 CT [facility] Heparin Anti Xa Fld.NB-aCnc 1.31 I Unit/mL Normal 09/06/2024 [facility] Creat Ur-mCnc 88.8 mg/dL Normal 09/06/2024 [facility] Sodium Ur-sCnc 37.0 mmol/L Below low normal 09/06/2024 50 - 191 [facility] Heparin Anti Xa Fld.NB-aCnc <0.04 I Unit/mL Normal 09/05/2024 [facility] aPTT PPP 42.1 sec Above high normal 09/05/2024 25 - 37 C [facility] Glucose Bld-mCnc 98.0 mg/dL Normal 09/05/2024 70 - 199 C [facility] Rh Bld Positive Normal 09/05/2024 [facility] N ABO Group Bld O Normal 09/05/2024 [facility] Bld gp Ab Scn SerPl Ql Negative Normal 09/05/2024 [facility] Magnesium SerPl-mCnc 1.8 mg/dL Normal 09/05/2024 1.7 - 2.8 [facility] Anion Gap SerPl-sCnc 7.0 Normal 09/05/2024 5 - 14 [facility] Creat SerPl-mCnc 0.7 mg/dL Normal 09/05/2024 0.7 - 1.3 CT [facility] Potassium SerPl-sCnc 4.2 mmol/L Normal 09/05/2024 3.5 - 5.1 [facility] BUN SerPl-mCnc 14.0 mg/dL Normal 09/05/2024 9 - 20 [facility]_ [facility] Sodium SerPl-sCnc 130.0 mmol/L Below low normal 09/05/2024 1 35 - 145 [facility] eGFRcr SerPlBld CKD-EPI 2020 95.0 mL/min/1.73m2 Normal 09/05/2024 - [facility] Glucose SerPl-mCnc 106.0 mg/dL Normal 09/05/2024 70 - 199 [facility] BUN/Creat SerPl 20.0 Normal 09/05/2024 12 - 20 [facility]_ [facility] CO2 SerPl-sCnc 32.0 mmol/L Normal 09/05/2024 24 - 32 CT [facility] Calcium SerPl-mCnc 7.9 mg/dL Below low normal 09/05/2024 8.4 - 10.2 [facility] Chloride SerPl-sCnc 91.0 mmol/L Below low normal 09/05/2024 98 - 107 [facility] INR PPP 2.4 Above high normal 09/05/2024 0.8 - 1.1 C [facility] PT Bld 28.5 sec Above high normal 09/05/2024 10.5 - 13.3 [facility] Lymphocytes # Bld Auto 1.0 K/mcL Normal 09/05/2024 1 - 3.2 [facility] Hct VFr Bld Auto 31.7 % Below low normal 09/05/2024 40 - 54 [facility] MCV RBC Auto 95.6 FL Normal 09/05/2024 78 - 100 [facility] [place] MCH RBC Qn Auto 31.7 pcg Normal 09/05/2024 25 - 33 [facility]_ [facility] Monocytes/leuk NFr Bld Auto 5.9 % Normal 09/05/2024 2 - 12 [facility] Platelet # Bld Auto 353.0 K/mcL Normal 09/05/2024 150 - 450 [facility] Basophils/leuk NFr Bld Auto 1.0 % Normal 09/05/2024 0 - 2 [facility] MCHC RBC Auto-mCnc 33.1 g/dL Normal 09/05/2024 32 - 36 [facility] Neutrophils # Bld Auto 10.2 K/mcL Above high normal 09/05/2024 1.8 - 7.8 [facility] Lymphocytes/leuk NFr Bld Auto 8.4 % Below low normal 09/05/2024 20 - 48 [facility] Eosinophil/leuk NFr Bld Auto 0.8 % Normal 09/05/2024 0 - 6 [facility] Eosinophil # Bld Auto 0.1 K/mcL Normal 09/05/2024 0 - 0.5 [facility] Monocytes # Bld Auto 0.7 K/mcL Normal 09/05/2024 0 - 0.8 [facility] WBC # Bld Auto 12.1 K/mcL Above high normal 09/05/2024 4 - 1 0.5 [facility] Neutrophils/leuk NFr Bld Auto 83.9 % Above high normal 09/05/2024 44 - 74 [facility] RBC # Bld Auto 3.31 M/mcL Below low normal 09/05/2024 4.7 - 6 [facility] Hgb Bld-mCnc 10.5 g/dL Below low normal 09/05/2024 13.5 - 18 [facility] PMV Bld Auto 7.4 FL Normal 09/05/2024 7.4 - 11.4 [facility] RDW RBC Auto-Rto 14.8 % Normal 09/05/2024 12.1 - 17.7 [facility] Basophils # Bld Auto 0.1 K/mcL Normal 09/05/2024 0 - 0.2 [facility] Glucose Bld-mCnc 103.0 mg/dL Normal 09/05/2024 70 - 199 [facility] Glucose Bld-mCnc 107.0 mg/dL Normal 09/05/2024 70 - 199 [facility] Sodium Ur-sCnc 102.0 mmol/L Normal 09/05/2024 50 - 191 C [facility] Creat Ur-mCnc 16.7 mg/dL Normal 09/05/2024 [facility] Glucose Bld-mCnc 87.0 mg/dL Normal 09/04/2024 70 - 199 C T_[facility] Glucose Bld-mCnc 192.0 mg/dL Normal 09/04/2024 70 - 199 [facility] Glucose Bld-mCnc 99.0 mg/dL Normal 09/04/2024 70 - 199 C [facility] Creat SerPl-mCnc 0.8 mg/dL Normal 09/04/2024 0.7 - 1.3 CT [facility] Potassium SerPl-sCnc 3.9 mmol/L Normal 09/04/2024 3.5 - 5.1 [facility] Anion Gap SerPl-sCnc 6.0 Normal 09/04/2024 5 - 14 [facility] BUN SerPl-mCnc 17.0 mg/dL Normal 09/04/2024 9 - 20 [facility]_ [facility] BUN/Creat SerPl 21.3 Above high normal 09/04/2024 12 - 20 [facility] eGFRcr SerPlBld CKD-EPI 2020 91.0 mL/min/1.73m2 Normal 09/04/2024 - [facility] Sodium SerPl-sCnc 129.0 mmol/L Below low normal 09/04/2024 1 35 - 145 [facility] CO2 SerPl-sCnc 32.0 mmol/L Normal 09/04/2024 24 - 32 CT [facility] Glucose SerPl-mCnc 104.0 mg/dL Normal 09/04/2024 70 - 199 [facility] Chloride SerPl-sCnc 91.0 mmol/L Below low normal 09/04/2024 98 - 107 [facility] Calcium SerPl-mCnc 8.2 mg/dL Below low normal 09/04/2024 8.4 - 10.2 [facility] Hct VFr Bld Auto 32.3 % Below low normal 09/04/2024 40 - 54 [facility] RBC # Bld Auto 3.4 M/mcL Below low normal 09/04/2024 4.7 - 6 [facility] Monocytes/leuk NFr Bld Auto 6.5 % Normal 09/04/2024 2 - 12 [facility] Neutrophils/leuk NFr Bld Auto 82.9 % Above high normal 09/04/2024 44 - 74 [facility] Basophils/leuk NFr Bld Auto 0.7 % Normal 09/04/2024 0 - 2 [facility] Eosinophil # Bld Auto 0.1 K/mcL Normal 09/04/2024 0 - 0.5 [facility] MCH RBC Qn Auto 31.1 pcg Normal 09/04/2024 25 - 33 [facility] Platelet # Bld Auto 367.0 K/mcL Normal 09/04/2024 150 - 450 [facility] WBC # Bld Auto 13.4 K/mcL Above high normal 09/04/2024 4 - 1 0.5 [facility] MCV RBC Auto 95.1 FL Normal 09/04/2024 78 - 100 [facility] PMV Bld Auto 7.5 FL Normal 09/04/2024 7.4 - 11.4 [facility] Lymphocytes # Bld Auto 1.3 K/mcL Normal 09/04/2024 1 - 3.2 [facility] Eosinophil/leuk NFr Bld Auto 0.5 % Normal 09/04/2024 0 - 6 [facility] Hgb Bld-mCnc 10.6 g/dL Below low normal 09/04/2024 13.5 - 18 [facility] RDW RBC Auto-Rto 15.0 % Normal 09/04/2024 12.1 - 17.7 [facility] Lymphocytes/leuk NFr Bld Auto 9.4 % Below low normal 09/04/2024 20 - 48 [facility] MCHC RBC Auto-mCnc 32.7 g/dL Normal 09/04/2024 32 - 36 [facility] Neutrophils # Bld Auto 11.1 K/mcL Above high normal 09/04/2024 1.8 - 7.8 [facility] Monocytes # Bld Auto 0.9 K/mcL Above high normal 09/04/2024 0 - 0.8 [facility] Basophils # Bld Auto 0.1 K/mcL Normal 09/04/2024 0 - 0.2 [facility] Glucose Bld-mCnc 98.0 mg/dL Normal 09/04/2024 70 - 199 C [facility] Troponin I SerPl HS-mCnc 2341.0 ng/L Critically high 09/03/2024 0 - 20 [facility] Bilirub Direct SerPl-mCnc 1.2 mg/dL Above high normal 09/03/2024 0 - 0.2 [facility] ALT SerPl-cCnc 21.0 unit/L Normal 09/03/2024 7 - 52 [facility] Albumin/Glob SerPl 0.8 Normal 09/03/2024 [facility] ALP SerPl-cCnc 139.0 unit/L Above high normal 09/03/2024 34 - 104 [facility] Bilirub SerPl-mCnc 2.1 mg/dL Above high normal 09/03/2024 0. 3 - 1 [facility] Globulin Ser Calc-mCnc 3.4 g/dL Normal 09/03/2024 2.3 - 3.5 [facility] Prot SerPl-mCnc 6.0 g/dL Below low normal 09/03/2024 6.4 - 8.5 [facility] Albumin SerPl-mCnc 2.6 g/dL Below low normal 09/03/2024 3.5 - 5 [facility] AST SerPl-cCnc 40.0 unit/L Normal 09/03/2024 5 - 40 CT [facility] Chloride SerPl-sCnc 91.0 mmol/L Below low normal 09/03/2024 98 - 107 [facility] Creat SerPl-mCnc 0.7 mg/dL Normal 09/03/2024 0.7 - 1.3 CT [facility] Anion Gap SerPl-sCnc 7.0 Normal 09/03/2024 5 - 14 [facility] Sodium SerPl-sCnc 130.0 mmol/L Below low normal 09/03/2024 1 35 - 145 [facility] Calcium SerPl-mCnc 8.2 mg/dL Below low normal 09/03/2024 8.4 - 10.2 [facility] eGFRcr SerPlBld CKD-EPI 2020 95.0 mL/min/1.73m2 Normal 09/03/2024 - [facility] Glucose SerPl-mCnc 120.0 mg/dL Normal 09/03/2024 70 - 199 [facility] BUN/Creat SerPl 18.6 Normal 09/03/2024 12 - 20 [facility] BUN SerPl-mCnc 13.0 mg/dL Normal 09/03/2024 9 - 20 [facility] Potassium SerPl-sCnc 3.7 mmol/L Normal 09/03/2024 3.5 - 5.1 [facility] CO2 SerPl-sCnc 32.0 mmol/L Normal 09/03/2024 24 - 32 CT [facility] Magnesium SerPl-mCnc 1.8 mg/dL Normal 09/03/2024 1.7 - 2.8 [facility] Phosphate SerPl-mCnc 3.5 mg/dL Normal 09/03/2024 2.5 - 4.5 [facility] INR PPP 5.5 Critically high 09/03/2024 0.8 - 1.1 [facility] PT Bld 64.0 sec Above high normal 09/03/2024 10.5 - 13.3 [facility] Digoxin SerPl-mCnc 0.6 ng/mL Below low normal 09/03/2024 0.8 - 2 [facility] Eosinophil/leuk NFr Bld Auto 0.3 % Normal 09/03/2024 0 - 6 [facility] Eosinophil # Bld Auto 0.0 K/mcL Normal 09/03/2024 0 - 0.5 [facility] MCV RBC Auto 95.2 FL Normal 09/03/2024 78 - 100 [facility] PMV Bld Auto 8.2 FL Normal 09/03/2024 7.4 - 11.4 [facility] Monocytes # Bld Auto 1.0 K/mcL Above high normal 09/03/2024 0 - 0.8 [facility] MCH RBC Qn Auto 31.5 pcg Normal 09/03/2024 25 - 33 [facility] Hgb Bld-mCnc 11.1 g/dL Below low normal 09/03/2024 13.5 - 18 [facility] MCHC RBC Auto-mCnc 33.1 g/dL Normal 09/03/2024 32 - 36 [facility] Lymphocytes # Bld Auto 1.1 K/mcL Normal 09/03/2024 1 - 3.2 [facility] Lymphocytes/leuk NFr Bld Auto 7.4 % Below low normal 09/03/2024 20 - 48 [facility] Basophils/leuk NFr Bld Auto 0.2 % Normal 09/03/2024 0 - 2 [facility] Hct VFr Bld Auto 33.5 % Below low normal 09/03/2024 40 - 54 [facility] Platelet # Bld Auto 354.0 K/mcL Normal 09/03/2024 150 - 450 [facility] Basophils # Bld Auto 0.0 K/mcL Normal 09/03/2024 0 - 0.2 [facility] RDW RBC Auto-Rto 14.7 % Normal 09/03/2024 12.1 - 17.7 [facility] WBC # Bld Auto 14.5 K/mcL Above high normal 09/03/2024 4 - 1 0.5 [facility] RBC # Bld Auto 3.52 M/mcL Below low normal 09/03/2024 4.7 - 6 [facility] Neutrophils/leuk NFr Bld Auto 84.9 % Above high normal 09/03/2024 44 - 74 [facility] Monocytes/leuk NFr Bld Auto 7.2 % Normal 09/03/2024 2 - 12 [facility] Neutrophils # Bld Auto 12.3 K/mcL Above high normal 09/03/2024 1.8 - 7.8 [facility] LACTIC ACID 1.1 mmol/L Normal 09/03/2024 0.5 - 2.2 [facility] Glucose Bld-mCnc 114.0 mg/dL Normal 09/03/2024 70 - 199 [facility] Ketones Ur-mCnc Negative Normal 09/03/2024 - [facility] Glucose Ur Ql Negative Normal 09/03/2024 - [facility] pH Ur 5.0 pH Abnormal 09/03/2024 5 - 8 [facility] RBC #/area UrnS HPF 3.0 /HPF Normal 09/03/2024 0 - 3 [facility] Hgb Ur Ql Moderate Abnormal 09/03/2024 - [facility] Mucous Threads #/area UrnS HPF Present Abnormal 09/03/2024 - [facility] Nitrite Ur Ql Negative Normal 09/03/2024 - [facility] Color Ur Miladys Abnormal 09/03/2024 - [facility] WBC #/area UrnS HPF 3.0 /HPF Normal 09/03/2024 0 - 5 [facility] Squamous #/area UrnS HPF 8.0 /HPF Above high normal 09/03/2024 0 - 5 [facility] Sp Gr Ur 1.019 Normal 09/03/2024 1.005 - 1.03 [facility] Clarity Ur Hazy Abnormal 09/03/2024 - [facility] Leukocyte esterase Ur Ql Strip Negative Normal 09/03/2024 - [facility] Prot Ur Strip-mCnc Negative Normal 09/03/2024 - [facility] APAP SerPl-mCnc <10.0 mcg/mL Below low normal 09/03/2024 10 - 30 [facility] Troponin I SerPl HS-mCnc 3017.0 ng/L Critically high 09/03/2024 0 - 20 [facility] LACTIC ACID 2.4 mmol/L Above high normal 09/03/2024 0.5 - 2. 2 [facility] Est. average glucose Bld gHb Est-mCnc 126.0 mg/dL Normal 09/03/2024 [facility] HbA1c MFr Bld 6.0 % Above high normal 09/03/2024 - 5.7 [facility] Troponin I SerPl HS-mCnc 3500.0 ng/L Critically high 09/03/2024 0 - 20 [facility] INR PPP 7.0 Critically high 09/03/2024 0.8 - 1.1 [facility] PT Bld 80.8 sec Above high normal 09/03/2024 10.5 - 13.3 [facility] Phosphate SerPl-mCnc 2.8 mg/dL Normal 09/03/2024 2.5 - 4.5 [facility] Bilirub SerPl-mCnc 2.1 mg/dL Above high normal 09/03/2024 0. 3 - 1 [facility] Globulin Ser Calc-mCnc 3.3 g/dL Normal 09/03/2024 2.3 - 3.5 [facility] Bilirub Direct SerPl-mCnc 1.0 mg/dL Above high normal 09/03/2024 0 - 0.2 [facility] Albumin/Glob SerPl 0.8 Normal 09/03/2024 [facility] AST SerPl-cCnc 40.0 unit/L Normal 09/03/2024 5 - 40 [facility] Prot SerPl-mCnc 6.1 g/dL Below low normal 09/03/2024 6.4 - 8.5 [facility] Albumin SerPl-mCnc 2.8 g/dL Below low normal 09/03/2024 3.5 - 5 [facility] ALT SerPl-cCnc 19.0 unit/L Normal 09/03/2024 7 - 52 [facility] ALP SerPl-cCnc 140.0 unit/L Above high normal 09/03/2024 34 - 104 [facility] Anion Gap SerPl-sCnc 9.0 Normal 09/03/2024 5 - 14 [facility] Creat SerPl-mCnc 0.6 mg/dL Below low normal 09/03/2024 0.7 - 1.3 [facility] CO2 SerPl-sCnc 30.0 mmol/L Normal 09/03/2024 24 - 32 [facility] Sodium SerPl-sCnc 128.0 mmol/L Below low normal 09/03/2024 1 35 - 145 [facility] BUN SerPl-mCnc 12.0 mg/dL Normal 09/03/2024 9 - 20 [facility] Chloride SerPl-sCnc 89.0 mmol/L Below low normal 09/03/2024 98 - 107 [facility] Calcium SerPl-mCnc 8.6 mg/dL Normal 09/03/2024 8.4 - 10.2 [facility] eGFRcr SerPlBld CKD-EPI 2020 99.0 mL/min/1.73m2 Normal 09/03/2024 - [facility] Potassium SerPl-sCnc 3.6 mmol/L Normal 09/03/2024 3.5 - 5.1 [facility] BUN/Creat SerPl 20.0 Normal 09/03/2024 12 - 20 [facility] Glucose SerPl-mCnc 124.0 mg/dL Normal 09/03/2024 70 - 199 [facility] Magnesium SerPl-mCnc 1.8 mg/dL Normal 09/03/2024 1.7 - 2.8 [facility] BNP SerPl-mCnc 438.0 pcg/mL Above high normal 09/03/2024 0 - 100 [facility] LACTIC ACID 2.2 mmol/L Normal 09/03/2024 0.5 - 2.2 [facility] Monocytes # Bld Auto 1.0 K/mcL Above high normal 09/03/2024 0 - 0.8 [facility] Platelet # Bld Auto 364.0 K/mcL Normal 09/03/2024 150 - 450 [facility] WBC # Bld Auto 17.4 K/mcL Above high normal 09/03/2024 4 - 1 0.5 [facility] Neutrophils/leuk NFr Bld Auto 87.6 % Above high normal 09/03/2024 44 - 74 [facility] PMV Bld Auto 7.6 FL Normal 09/03/2024 7.4 - 11.4 [facility] Hct VFr Bld Auto 33.9 % Below low normal 09/03/2024 40 - 54 [facility] Eosinophil/leuk NFr Bld Auto 0.5 % Normal 09/03/2024 0 - 6 [facility] Neutrophils # Bld Auto 15.2 K/mcL Above high normal 09/03/2024 1.8 - 7.8 [facility] MCV RBC Auto 95.3 FL Normal 09/03/2024 78 - 100 [facility] MCHC RBC Auto-mCnc 32.7 g/dL Normal 09/03/2024 32 - 36 [facility] RBC # Bld Auto 3.56 M/mcL Below low normal 09/03/2024 4.7 - 6 [facility] MCH RBC Qn Auto 31.2 pcg Normal 09/03/2024 25 - 33 [facility] Basophils # Bld Auto 0.1 K/mcL Normal 09/03/2024 0 - 0.2 [facility] Hgb Bld-mCnc 11.1 g/dL Below low normal 09/03/2024 13.5 - 18 [facility] RDW RBC Auto-Rto 15.2 % Normal 09/03/2024 12.1 - 17.7 [facility] Lymphocytes # Bld Auto 1.0 K/mcL Normal 09/03/2024 1 - 3.2 [facility] Eosinophil # Bld Auto 0.1 K/mcL Normal 09/03/2024 0 - 0.5 [facility] Monocytes/leuk NFr Bld Auto 6.0 % Normal 09/03/2024 2 - 12 [facility] Basophils/leuk NFr Bld Auto 0.3 % Normal 09/03/2024 0 - 2 [facility] Lymphocytes/leuk NFr Bld Auto 5.6 % Below low normal 09/03/2024 20 - 48 [facility] History of Medication Use Medication Directions Dispensed Refills Start Date End Date Stat us enoxaparin (LOVENOX) 100 mg/mL syringe Inject 1 mL (100 mg total) under the skin every 12 (twelve) hours. 10/17/2024 active cefadroxil 500 mg capsule Take 1 capsule (500 mg total) by mouth 2 (two) times a day. 10/05/2024 active metoprolol succinate (TOPROL-XL) 50 mg 24 hr tablet Take 1 tablet (50 mg total) by mouth 1 (one) time each day. Do not crush or chew. 09/14/2024 active warfarin (COUMADIN) 1 mg tablet Please take 2.5mg tablet AND 1mg tablet together by mouth for total daily dose of 3.5mg. Adjust dose per provider monitoring INR. 09/14/2024 active warfarin (COUMADIN) 2.5 mg tablet Please take 2.5mg tablet AND 1mg tablet together by mouth for total daily dose of 3.5mg. Adjust dose per provider monitoring INR. 09/14/2024 active allopurinoL (ZYLOPRIM) 100 mg tablet TAKE ONE TABLET BY MOUTH TWICE A DAY 08/22/2024 active pravastatin (PRAVACHOL) 20 mg tablet TAKE ONE TABLET BY MOUTH AT BEDTIME 07/27/2024 active hydrOXYzine HCL (ATARAX) 25 mg tablet Take 1 tablet (25 mg total) by mouth at bedtime as needed for itching. TAKE ONE-HALF TO ONE TABLET BY MOUTH AT BEDTIME NEEDED FOR INSOMNIA 05/30/2024 active digoxin (LANOXIN) 125 mcg (0.125 mg) tablet TAKE ONE TABLET BY MOUTH EVERY OTHER DAY 05/26/2024 active furosemide (LASIX) 20 mg tablet Take 2 tablets (40 mg total) by mouth 1 (one) time each day. 08/07/2023 active warfarin (COUMADIN) 5 mg tablet Take 1 tablet (5 mg total) by mouth 1 (one) time each day with dinner. active Allergies Allergen Reaction Severity Comment Documented Date Source Statu s LATEX OTHER Latex band aid cause rash 01/08/2018 [facility] active ADHESIVE Band aids cause contact dermatitis 10/02/2015 [facility] active Problems Problem Status Onset Date Problem Type Date of Resolution Source Severe obesity (BMI 35.0-39.9) with comorbidity active 2016-07-16 ProblemAct [facility] correction (current) use of anticoagulants active 2024-04-27 ProblemAct [facility] Pulmonary hypertension active 2025-05-09 ProblemAct [facility] Pure hypercholesterolemia active 2007-11-16 ProblemAct [facility] Systolic congestive heart failure active 2005-05-26 ProblemAct [facility] BPH (benign prostatic hyperplasia) active 2011-12-16 ProblemAct [facility] Inflammation of joint active 2024-09-02 ProblemAct [facility] Tubular adenoma active 2005-11-[address] [facility] Atrial flutter active 2008-02-10 Problem[address] [facility] Prediabetes active 2020-07-14 ProblemAct [facility] History of heart valve replacement active 2008-02-10 ProblemAct [facility] Hypertension active 2018-01-14 ProblemAct [facility] Venous insufficiency of both lower extremities active 2018-01-14 ProblemAct [facility] Diverticulitis of colon without hemorrhage active 2005-11-27 ProblemAct [facility] N Fasciitis active 2020-09-02 ProblemAct [facility] Immunizations Vaccine Date Source Lot Number Status Influenza trivalent, 0.5mL ( Fluad) 65yo and older 03/16/2025 [facility] [id number] completed Influenza trivalent, 0.5mL ( Fluzone High-dose) 65yo and older 04/11/2020 [facility] [id number] comple jorge l Influenza trivalent, 0.5mL ( Fluzone High-dose) 65yo and older 04/11/2020 [facility] [id number] comple jorge l Influenza trivalent, 0.5mL ( Fluzone High-dose) 65yo and older 04/15/2019 [facility] [id number] comple jorge l Influenza trivalent, 0.5mL ( Fluzone High-dose) 65yo and older 04/15/2019 [facility] [id number] comple jorge l Influenza trivalent, 0.5mL ( Fluzone High-dose) 65yo and older 03/10/2017 [facility] [id number] comple jorge l Influenza trivalent, 0.5mL ( Fluzone High-dose) 65yo and older 03/10/2017 [facility] [id number] comple jorge l Pneumococcal conjugate 13 va lent (Prevnar 13, PCV13) 2mo and older 01/29/2016 [facility] [id number] complet ed Pneumococcal conjugate 13 va lent (Prevnar 13, PCV13) 2mo and older 01/29/2016 [facility] [id number] complet ed Tdap Tetanus diptheria acell ular pertussis (Boostrix; Adacel) 7yo and older 01/29/2016 [facility] [id number] completed Influenza trivalent, with pr eservative (Fluzone; Afluria) 6mo and older 03/22/2015 [facility] [id number] completed Influenza trivalent, with pr eservative (Fluzone; Afluria) 6mo and older 03/12/2014 [facility] completed Influenza trivalent, with pr eservative (Fluzone; Afluria) 6mo and older 03/12/2014 [facility]SFR[facility]EVE completed Influenza trivalent, with pr eservative (Fluzone; Afluria) 6mo and older 02/25/2013 [facility] [id number] completed Influenza trivalent, with pr eservative (Fluzone; Afluria) 6mo and older 03/30/2012 [facility] [id number] completed Influenza trivalent, with pr eservative (Fluzone; Afluria) 6mo and older 03/30/2012 [facility]KazFR[facility] [id number] completed Zoster Live 12/16/2011 [facility] [id number] completed Zoster Live 12/16/2011 [facility] [id number] completed Influenza trivalent, with pr eservative (Fluzone; Afluria) 6mo and older 03/18/2011 [facility] [id number] completed Influenza trivalent, with pr eservative (Fluzone; Afluria) 6mo and older 04/10/2010 [facility] [id number] completed Influenza trivalent, with pr eservative (Fluzone; Afluria) 6mo and older 04/10/2010 [facility] [id number] completed H1N1 Inj Preservative Free 05/13/2009 [facility] [id number] completed H1N1 Inj Preservative Free 05/13/2009 [facility] [id number] completed Influenza trivalent, with pr eservative (Fluzone; Afluria) 6mo and older 03/13/2009 [facility] [id number] completed Influenza trivalent, with pr eservative (Fluzone; Afluria) 6mo and older 03/29/2008 [facility] [id number] completed Influenza trivalent, with pr eservative (Fluzone; Afluria) 6mo and older 03/15/2007 [facility] [id number] completed Influenza trivalent, with pr eservative (Fluzone; Afluria) 6mo and older 03/15/2007 [facility] 01751 completed Influenza trivalent, with pr eservative (Fluzone; Afluria) 6mo and older 03/18/2005 [facility] completed Influenza trivalent, with pr eservative (Fluzone; Afluria) 6mo and older 03/18/2005 [facility] completed Pneumococcal polysaccharide 23 valent (Pneumovax 23) 2yo and older 04/27/2003 [facility] com pleted Td Tetanus diptheria (Tdvax) 7yo and older 04/27/2003 [facility]_T HSFRAN completed Td Tetanus diptheria (Tdvax) 7yo and older 04/27/2003 [facility]_T HSFRAN completed Td Tetanus diptheria (Tdvax) 7yo and older 04/20/2001 [facility]_T HSFRAN completed Encounters Encounter Type Encounter Reason Primary Diagnosis Location Date Ambulatory [facility] 11/16/[address] [facility] 10/05/2024 Inpatient septic joint Unspecified atri al fibrillation ([facility] V24, [facility] V28) [facility] 09/02/2024 Care Team Organization Name Specialty Phone Email Start Date End Da te [facility] 09/06/2024 [facility] 09/03/[address] [facility] Eloise Zamudio Primary [facility] 04/15/202201/24
--- OUTSIDE RECORDS SUMMARY | 2025-05-22 18:55 | XMS_ITS | Encounter Summary ---
Author Organization [facility] Address [address] [place] [address] Care Team Providers Care Community Support Associate Name Role Phone Willy Benton MD Primary Care Provider [phone] Encounter Details Date Type Department Care Team (Late st Contact Info) Description 09/27/2024 Lab Requisition [facility] - Main Lab [address] [facility] [place] [address] Merrick Crooks MD [address] [place] [phone] Encounter for other general examination Social History [...] 05/23/2025 11:15 AM EST Clinical Support Coumadin [address], [place] [phone] 10/03/2025 11:30 AM EDT Office Visit Adult Medicine [address] [phone] Willy Benton MD [address] [place], [place] documented as of this encounter Procedures Procedure Name Priority Date/Time Associated Diagnosis Comments C REACTIVE PROTEIN, HIGH SENSITIVITY STAT 09/27/2024 11:16 AM EDT Encounter for other general examination CREATINE KINASE STAT 09/27/2024 11:16 AM EDT Encounter for other general examination documented in this encounter Results * C reactive protein, high sensitivity (09/27/2024 11:16 AM EDT) [facility] CRP, High Sensitivity 21.40 mg/L LAB CHEMISTRY METHOD 09/27/2024 12:[address] [facility] Comment: Cardio CRP Relative Risk Categories Low <1.0 mg/L Average 1.0 - 3.0 mg/L High >3.0 mg/L Levels >10.0 mg/L should be ignored and repeated when the patient is stable and infection or inflammation is ruled out. Blood Venous blood specimen / Unknown Venipuncture / Unknown 09/27/2024 11:16 AM EDT 09/27/2024 11:57 AM EDT us Merrick Crooks MD LAB BLOOD ORDERABLES Final Resu lt [facility] [address] [place] [address], * Creatine kinase (09/27/2024 11:16 AM EDT) [facility] Total CK 34 22 - 269 unit/L LAB CHEMISTRY METHOD 09/27/2024 12:[address] [facility] Blood Venous blood specimen / Unknown Venipuncture / Unknown 09/27/2024 11:16 AM EDT 09/27/2024 11:57 AM EDT us Merrick Crooks MD LAB BLOOD ORDERABLES Final Resu lt [facility] [address] [place] [address], documented in this encounter Visit Diagnoses Diagnosis Encounter for other general examination documented in this encounter Care Teams Community Support Associate Relationship Specialty Start Date End Date Willy Benton MD [address] [place] [phone] PCP - General Internal Medicine 02/04/21 documented as of this encounter
--- OUTSIDE RECORDS SUMMARY | 2025-05-22 18:55 | XMS_ITS | Encounter Summary ---
Author Organization [facility] Address [address] [place] [address] Care Team Providers Care Project Construction Assistant Manager Name Role Phone Willy Benton MD Primary Care Provider [phone] Encounter Details Date Type Department Care Team (Late st Contact Info) Description 09/18/2024 Lab Requisition [facility] - Main Lab [address] [facility] [place] [address] Merrick Crooks MD [address] [place] [id number] Encounter for other general examination Social History [...] 05/23/2025 11:15 AM EST Clinical Support Coumadin [address], [place] [phone] 10/03/2025 11:30 AM EDT Office Visit Adult Medicine [address] [phone] Willy Benton MD [address] [place] [address] documented as of this encounter Procedures Procedure Name Priority Date/Time Associated Diagnosis Comments VANCOMYCIN, RANDOM Routine 09/18/2024 2: 55 PM EDT Encounter for other general examination documented in this encounter Results * Vancomycin random (09/18/2024 2:55 PM EDT) Vancomycin Rm 12.9 mcg/mL LAB CHEMISTRY METHOD 09/18/2024 4:46 PM EDT [facility] Blood Venous blood specimen / Unknown Venipuncture / Unknown 09/18/2024 2:55 PM EDT 09/18/2024 4:07 PM EDT us Merrick Crooks MD LAB BLOOD ORDERABLES Final Resu lt [facility] [address] [place] [address], documented in this encounter Visit Diagnoses Diagnosis Encounter for other general examination documented in this encounter Care Teams Project Construction Assistant Manager Relationship Specialty Start Date End Date Willy Benton MD [address] [place] [address] PCP - General Internal Medicine 02/04/21 documented as of this encounter
--- OUTSIDE RECORDS SUMMARY | 2025-05-22 18:55 | XMS_ITS | Encounter Summary ---
Author Organization [facility] Address [address] [place] [address] Care Team Providers Care Bookbinder Chief Name Role Phone Willy Benton MD Primary Care Provider [phone] Encounter Details Date Type Department Care Team (Late st Contact Info) Description 09/26/2024 Lab Requisition [facility] - Main Lab [address] [facility] [place] [address] Merrick Crooks MD [address] [place] [phone] Encounter for other general examination Social History [...] 05/23/2025 11:15 AM EST Clinical Support Coumadin [address], [place] [phone] 10/03/2025 11:30 AM EDT Office Visit Adult Medicine [address] [phone] Willy Benton MD [address] [place], [place] documented as of this encounter Procedures Procedure Name Priority Date/Time Associated Diagnosis Comments CBC WITH AUTO DIFFERENTIAL Routine 09/26/2024 6:40 AM EDT Encounter for other general examination PROTHROMBIN TIME WITH INR Routine 09/26/2024 6:40 AM EDT Encounter for other general examination CBC AND DIFFERENTIAL Routine 09/26/2024 6:40 AM EDT Encounter for other general examination MAGNESIUM Routine 09/26/2024 6:40 AM EDT Encounter for other general examination COMPREHENSIVE METABOLIC PANEL Routine 09/26/2024 6:40 AM EDT Encounter for other general examination documented in this encounter Results * (ABNORMAL) CBC auto differential (09/26/2024 6:40 AM EDT) [facility] WBC 6.0 4.8 - 10.8 K/mcL LAB HEMETOLOGY METHOD 09/26/2024 1:13 PM EDT [facility] RBC 2.90(L) 4.50 - 5.50 M/mcL LAB HEMETOLOGY METHOD 09/26/2024 1:13 PM EDT [facility] Hemoglobin 9.1(L) 13.5 - 17.5 g/dL LAB HEMETOLOGY METHOD 09/26/2024 1:13 PM EDT [facility] Hematocrit 29.8(L) 42.0 - 54.0 % LAB HEMETOLOGY METHOD 09/26/2024 1:13 PM EDT [facility] MCV 101.4(H) 79.0 - 98.0 FL LAB [facility]OLOG[facility] MCH 31.0 27.0 - 32.0 pcg LAB HEMETOLOGY METHOD 09/26/2024 1:13 PM [facility] MCHC 30.5(L) 32.0 - 37.0 g/dL LAB HEMETOLOGY METHOD 09/26/2024 1:13 PM [facility] RDW 17.5(H) 11.0 - 15.0 % LAB HEMETOLOGY METHOD 09/26/2024 1:13 PM [facility] Platelets 272 130 - 400 K/mcL LAB HEMETOLOGY METHOD 09/26/2024 1:13 PM [facility] MPV 9.7 7.0 - 11.0 FL LAB HEMETOLOGY METHOD 09/26[facility]2024 [facility] NRBC 0.0 <1.0 % LAB HEMETOLOGY METHOD 09/26/2024 1:13 PM [facility] NRBC Absolute 0.00 <0.10 K/mcL LAB HEMETOLOGY METHOD 09/26/2024 1:13 PM [facility] Neutrophils Relative 73.7 % LAB HEMETOLOGY METHOD 09/26/2024 1:13 PM [facility] Lymphocytes Relative 11.1 % LAB HEMETOLOGY METHOD 09/26/2024 1:13 PM [facility] Monocytes Relative 8.8 % LAB HEMETOLOGY METHOD 09/26/2024 1:13 PM [facility] Eosinophils Relative 5.2 % LAB HEMETOLOGY METHOD 09/26/2024 1:13 PM [facility] Basophils Relative 0.7 % LAB HEMETOLOGY METHOD 09/26/2024 1:13 PM EDT [facility] Immature Granulocytes Relative 0.5 % LAB HEMETOLOGY METHOD 09/26/2024 1:13 PM EDT [facility] Neutrophils Absolute 4.43 1.50 - 7.00 K/mcL LAB HEMETOLOGY METHOD 09/26/2024 1:13 PM EDT [facility] Lymphocytes Absolute 0.67(L) 1.00 - 5.00 K/mcL LAB HEMETOLOGY METHOD 09/26/2024 1:13 PM EDT [facility] Monocytes Absolute 0.53 0.20 - 1.00 K/mcL LAB HEMETOLOGY METHOD 09/26/2024 1:13 PM EDT [facility] Eosinophils Absolute 0.31 0.00 - 0.50 K/mcL LAB HEMETOLOGY METHOD 09/26/2024 1:13 PM EDT [facility] Basophils Absolute 0.04 0.00 - 0.20 K/mcL LAB HEMETOLOGY METHOD 09/26/2024 1:13 PM EDT [facility] Immature Granulocytes Absolute 0.03 0.00 - 0.03 K/mcL LAB HEMETOLOGY METHOD 09/26/2024 1:13 PM EDT [facility] Blood Venous blood specimen / Unknown Venipuncture / Unknown 09/26/2024 6:40 AM EDT 09/26/2024 10:57 AM EDT us Merrick Crooks MD LAB BLOOD ORDERABLES Final Resu lt [facility] [address] [place] [address], * (ABNORMAL) Prothrombin time with INR (09/26/2024 6:40 AM EDT) Protime 33.0(H) 10.6 - 13.9 sec LAB COAGULATION METHOD 09/26/2024 11:53 AM EDT [facility] INR 2.7 LAB COAGULATION METHOD 09/26/2024 11:53 AM EDT [facility] Blood Venous blood specimen / Unknown Venipuncture / Unknown 09/26/2024 6:40 AM EDT 09/26/2024 10:57 AM EDT us Merrick Crooks MD LAB BLOOD ORDERABLES Final Resu lt Performing Organization Address City/[facility]/ZIP Co de Phone Number [facility] [address] [place] [address], [place] [phone] * Magnesium (09/26/2024 6:40 AM EDT) Pathologist [facility] Magnesium 2.2 1.9 - 2.6 mg/dL LAB CHEMISTRY METHOD 09/26/2024 1:28 PM EDT [facility] Blood Venous blood specimen / Unknown Venipuncture / Unknown 09/26/2024 6:40 AM EDT 09/26/2024 10:57 AM EDT us Merrick Crooks MD LAB BLOOD ORDERABLES Final Resu lt Performing Organization Address [facility]/ZIP Co de Phone Number [facility] [address] [place] [address], [place] [phone] * (ABNORMAL) Comprehensive metabolic panel (09/26/2024 6:40 AM EDT) Sodium 138 133 - 145 mmol/L LAB CHEMISTRY METHOD 09/26/2024 1:28 PM EDT [facility] Potassium 4.0 3.5 - 5.5 mmol/L LAB CHEMISTRY METHOD 09/26/2024 1:28 PM EDT [facility] Chloride 99 96 - 110 mmol/L LAB CHEMISTRY METHOD 09/26/2024 1:28 PM EDT [facility] CO2 31 21 - 32 mmol/L LAB CHEMISTRY METHOD 09/26/2024 1:28 PM [facility] Anion Gap 8 3 - 11 LAB CHEMISTRY METHOD 09/26/2024 1:28 PM [facility] Glucose 85 70 - 100 mg/dL LAB CHEMISTRY METHOD 09/26/2024 1:28 PM [facility] BUN 14 5 - 25 mg/dL LAB CHEMISTRY METHOD 09/26/2024 1:28 PM [facility] Creatinine 0.76 0.70 - 1.30 mg/dL LAB CHEMISTRY METHOD 09/26/2024 1:28 PM [facility] eGFR 93 >=60 mL/min/1. 73m2 LAB CHEMISTRY METHOD 09/26/2024 1:28 PM [facility] Comment:Calculation based on the Chronic Kidney Disease Epidemiology Collaboration (CKD-EPI) equation refit without adjustment for race. BUN/Creatinine Ratio 18.4 LAB CHEMISTRY METHOD 09/26/2024 1:28 PM [facility] Calcium 8.7 8.5 - 10.5 mg/dL LAB CHEMISTRY METHOD 09/26/2024 1:28 PM [facility] AST (SGOT) 28 10 - 42 unit/L LAB CHEMISTRY METHOD 09/26/2024 1:28 PM [facility] ALT (SGPT) 16 10 - 60 unit/L LAB CHEMISTRY METHOD 09/26/2024 1:28 PM [facility] Alkaline Phosphatase 115 42 - 121 unit/L LAB CHEMISTRY METHOD 09/26/2024 1:28 PM [facility] Total Protein 6.4 6.0 - 8.0 g/dL LAB CHEMISTRY METHOD 09/26/2024 1:28 PM [facility] Albumin 2.8(L) 3.2 - 5.0 g/dL LAB CHEMISTRY METHOD 09/26/2024 1:28 PM [facility] Total Bilirubin 1.0 0.0 - 1.4 mg/dL LAB CHEMISTRY METHOD 09/26/2024 1:28 PM EDT [facility] Blood Venous blood specimen / Unknown Venipuncture / Unknown 09/26/2024 6:40 AM EDT 09/26/2024 10:57 AM EDT us Merrick Crooks MD LAB BLOOD ORDERABLES Final Resu lt [facility] [address] [place] [address], documented in this encounter Visit Diagnoses Diagnosis Encounter for other general examination documented in this encounter Care Teams Bookbinder Chief Relationship Specialty Start Date End Date Willy Benton MD [address] [place] [address] PCP - General Internal Medicine 02/04/21 documented as of this encounter
== END 2025-05-22 14:52 | disposition home or self-care (01) ==
PROVIDERS: PCP Internal Medicine; Visit Provider Physician Assistant Medical
DX: R21 Rash and other nonspecific skin eruption (principal)

== ENCOUNTER → 2025-05-22 13:00 | Outpatient (BNVA) | payer MEDICARE, SELFPAY | PROVIDERS: PCP Internal Medicine; Visit Provider Physician Assistant Medical | DX: R21 Rash and other nonspecific skin eruption (principal) | CPT/HCPCS: 99212 ==